=== PATIENT | male | born 1950 | race Caucasian/White ===

== ENCOUNTER 2019-01-13 01:28 | Inpatient (IN) | payer MEDICARE ==
[~2019-01-13] VITALS: Ht 185.4 cm; Wt 72.0 kg
[~2019-01-13 01:28] MED LIST: ALBUTEROL S2.5 MG/.5 IN; ALBUTEROL S2.5 MG/.5 NEB; ALPRAZOLAM0.5 M2 PO; ASPIRIN LOW81 M1 PO; AUGMENTIN875TAB PO; CEPHALEXIN500 MG OR; CHOLESTEROL PO; CIPROFLOXACN500 MG PO; CORTISPORIN OTI10 M1 AD; COUMADIN2.5 MG PO; DENIES CURRENT MEDS; DUONEB IN; FLEXERIL10 MG PO; FLONASE NASAL50 MCG; KEFLEX250 MG/5 M OR; KEFLEX500 M1 PO; LORTAB5 PO; MEDDOSEPAK PO; METFORMIN500 MG PO; NEURONTIN300 MG PO; NEXIUM40 M1 PO; NICOTINE T21 MG/PATC TD; NO HOME MEDS; OXYCO/APAP1 TA5 OR; PERCOCET 5/325M1 TAB OR; PERCOCET 5/325M1 TAB PO; PREDNISONE10 MG PO; PREDNISONE20 MG PO; SPIRIVA HANDIHALER IN; SPIRIVA RE2.5 MCG/AC IN; SYMBICORT1 AE1 IN; TAMSULOSIN HCL0.4 MG PO; TLSO BRACE; TYLENOL & COD12.5 ML OR; ULTRAM50 M1 PO; VENTOLIN HF1 IN; VIAGRA100 MG PO; WARFARIN5 MG PO; WARFARIN7.5 MG PO; ZITHROMAX250 MG PO; ZPAK PO
[2019-01-13 02:08] LABS: HEMATOCRIT 40.5 % (39.0-50.0); HEMOGLOBIN 13.6 g/dl (14.0-18.0); IMMATURE GRANULOCYTES 0.7 % (0.0-5.0); MEAN CELL VOLUME 89.4 fL CALC (80.0-100.0); MEAN CORPUSCULAR HGB CONC 33.6 g/L CALC (32.0-36.0); NEUT# 14.5 thou/uL (1.82-7.42); RED BLOOD COUNT 4.53 mill/uL (4.70-6.10); RED CELL DISTRI WIDTH 14.7 % (11.5-15.5)
[2019-01-13 02:24] LABS: ALBUMIN 3.9 g/dL (3.2-5.0); BILIRUBIN, TOTAL 1.7 mg/dL (0.0-1.4); BUN 21 mg/dL (8-23); BUN/CREATININE RATIO 21 (12-20 (CALC)); CARBON DIOXIDE 21 mmol/l (22-30); CHLORIDE 99 mmol/l (95-108); GFR > 60 ML/MIN (>=60 (CALC)); GFR FOR AFR.AMER. > 60 ML/MIN (>=60 (CALC)); SGOT/AST 25 u/l (19-48); TOTAL PROTEIN 7.6 g/dL (6.3-8.2)
[2019-01-13 02:26] LABS: ALKALINE PHOSPHATASE 131 u/l (38-126); ANION GAP 17 (6-22 (CALC)); POTASSIUM 3.6 mmol/l (3.5-5.1); SODIUM 133 mmol/l (137-146)
[2019-01-13 02:36] LABS: MYOGLOBIN 29 ng/mL (0 - 121)
[2019-01-13 04:31] VITALS: BP 106/90
[2019-01-13 08:17] VITALS: BP 104/62
[2019-01-13 10:59] LABS: URINE BILIRUBIN - DIPSTICK NEGATIVE (NEGATIVE); URINE BLOOD DIPSTICK MODERATE (NEGATIVE); URINE COLOR YELLOW; URINE GLUCOSE - DIPSTICK 500 mg/dL (NEGATIVE); URINE KETONE NEGATIVE (NEGATIVE); URINE LEUK ESTERASE NEGATIVE (NEGATIVE); URINE NITRITE - DIPSTICK NEGATIVE (Negative); URINE PH 5.5 (4.5-8.0); URINE PROTEIN - DIPSTICK TRACE mg/dL (NEG-TRACE); URINE SPECIFIC GRAVITY 1.025
[2019-01-13 17:05] VITALS: BP 106/59
[2019-01-13 19:00] VITALS: BP 119/62
[2019-01-14] VITALS (7 sets, daily range): BP systolic 102–120; BP diastolic 56–64
[2019-01-14 05:10] LABS: ALKALINE PHOSPHATASE 99 u/l (38-126); BILIRUBIN, TOTAL 0.4 mg/dL (0.0-1.4); BUN 19 mg/dL (8-23); BUN/CREATININE RATIO 29 (12-20 (CALC)); CARBON DIOXIDE 23 mmol/l (22-30); CHLORIDE 99 mmol/l (95-108); CREATININE 0.6 mg/dL (0.7-1.3); GFR > 60 ML/MIN (>=60 (CALC)); GFR FOR AFR.AMER. > 60 ML/MIN (>=60 (CALC)); SGOT/AST 15 u/l (19-48); SODIUM 132 mmol/l (137-146)
[2019-01-14 05:37] LABS: ANION GAP 15 (6-22 (CALC))
[2019-01-14 05:38] LABS: ALBUMIN 2.9 g/dL (3.2-5.0); POTASSIUM 4.6 mmol/l (3.5-5.1); TOTAL PROTEIN 5.6 g/dL (6.3-8.2)
[2019-01-14 06:25] LABS: IMMATURE GRANULOCYTES 0.8 % (0.0-5.0); MEAN CORPUSCULAR HGB 29.8 pG CALC (26.0-32.0); MEAN CORPUSCULAR HGB CONC 33.1 g/L CALC (32.0-36.0); NEUT# 11.09 thou/uL (1.82-7.42); RED BLOOD COUNT 3.39 mill/uL (4.70-6.10); RED CELL DISTRI WIDTH 13.9 % (11.5-15.5)
[2019-01-14 06:26] LABS: HEMATOCRIT 30.5 % (39.0-50.0); HEMOGLOBIN 10.1 g/dl (14.0-18.0)
[2019-01-15] VITALS (7 sets, daily range): BP systolic 99–134; BP diastolic 59–79
[2019-01-15 05:57] LABS: HEMATOCRIT 31.4 % (39.0-50.0); HEMOGLOBIN 10.3 g/dl (14.0-18.0); IMMATURE GRANULOCYTES 0.4 % (0.0-5.0); MEAN CELL VOLUME 90.5 fL CALC (80.0-100.0); MEAN CORPUSCULAR HGB 29.7 pG CALC (26.0-32.0); MEAN CORPUSCULAR HGB CONC 32.8 g/L CALC (32.0-36.0); NEUT# 6.65 thou/uL (1.82-7.42); RED BLOOD COUNT 3.47 mill/uL (4.70-6.10); RED CELL DISTRI WIDTH 14.3 % (11.5-15.5)
[2019-01-15 06:22] LABS: ALBUMIN 2.6 g/dL (3.2-5.0); ALKALINE PHOSPHATASE 87 u/l (38-126); ANION GAP 12 (6-22 (CALC)); BILIRUBIN, TOTAL 0.4 mg/dL (0.0-1.4); BUN 22 mg/dL (8-23); BUN/CREATININE RATIO 28 (12-20 (CALC)); CARBON DIOXIDE 26 mmol/l (22-30); CHLORIDE 102 mmol/l (95-108); CREATININE 0.8 mg/dL (0.7-1.3); GFR > 60 ML/MIN (>=60 (CALC)); GFR FOR AFR.AMER. > 60 ML/MIN (>=60 (CALC)); MAGNESIUM 1.8 mg/dL (1.6-2.3); POTASSIUM 4.4 mmol/l (3.5-5.1); SODIUM 136 mmol/l (137-146); TOTAL PROTEIN 5.2 g/dL (6.3-8.2)
[2019-01-15 06:26] LABS: SGOT/AST 28 u/l (19-48)
[2019-01-16 04:00] VITALS: BP 107/58
[2019-01-16 05:07] LABS: HEMATOCRIT 32.1 % (39.0-50.0); HEMOGLOBIN 10.3 g/dl (14.0-18.0); MEAN CELL VOLUME 93.9 fL CALC (80.0-100.0); MEAN CORPUSCULAR HGB 30.1 pG CALC (26.0-32.0); MEAN CORPUSCULAR HGB CONC 32.1 g/L CALC (32.0-36.0); NEUT# 5.31 thou/uL (1.82-7.42); RED BLOOD COUNT 3.42 mill/uL (4.70-6.10); RED CELL DISTRI WIDTH 14.4 % (11.5-15.5)
[2019-01-16 05:18] LABS: ALBUMIN 2.8 g/dL (3.2-5.0); ALKALINE PHOSPHATASE 104 u/l (38-126); ANION GAP 13 (6-22 (CALC)); BILIRUBIN, TOTAL 0.7 mg/dL (0.0-1.4); BUN 18 mg/dL (8-23); BUN/CREATININE RATIO 26 (12-20 (CALC)); CARBON DIOXIDE 28 mmol/l (22-30); CHLORIDE 98 mmol/l (95-108); CREATININE 0.7 mg/dL (0.7-1.3); GFR > 60 ML/MIN (>=60 (CALC)); GFR FOR AFR.AMER. > 60 ML/MIN (>=60 (CALC)); MAGNESIUM 1.9 mg/dL (1.6-2.3); POTASSIUM 3.7 mmol/l (3.5-5.1); SGOT/AST 29 u/l (19-48); SODIUM 135 mmol/l (137-146); TOTAL PROTEIN 5.5 g/dL (6.3-8.2)
[2019-01-16 08:15] VITALS: BP 127/62
[2019-01-16 11:15] VITALS: BP 101/56
[2019-01-16 15:05] VITALS: BP 106/55
[2019-01-16 19:00] VITALS: BP 119/61
[2019-01-17] VITALS (7 sets, daily range): BP systolic 109–133; BP diastolic 58–67
[2019-01-17 05:09] LABS: HEMATOCRIT 31.2 % (39.0-50.0); HEMOGLOBIN 10.1 g/dl (14.0-18.0); IMMATURE GRANULOCYTES 1.1 % (0.0-5.0); MEAN CELL VOLUME 91.8 fL CALC (80.0-100.0); MEAN CORPUSCULAR HGB 29.7 pG CALC (26.0-32.0); MEAN CORPUSCULAR HGB CONC 32.4 g/L CALC (32.0-36.0); NEUT# 4.65 thou/uL (1.82-7.42); RED BLOOD COUNT 3.4 mill/uL (4.70-6.10); RED CELL DISTRI WIDTH 14.4 % (11.5-15.5)
[2019-01-17 05:51] LABS: ALBUMIN 2.7 g/dL (3.2-5.0); ALKALINE PHOSPHATASE 96 u/l (38-126); ANION GAP 13 (6-22 (CALC)); BILIRUBIN, TOTAL 0.5 mg/dL (0.0-1.4); BUN 17 mg/dL (8-23); BUN/CREATININE RATIO 25 (12-20 (CALC)); CARBON DIOXIDE 28 mmol/l (22-30); CHLORIDE 98 mmol/l (95-108); CREATININE 0.7 mg/dL (0.7-1.3); GFR > 60 ML/MIN (>=60 (CALC)); GFR FOR AFR.AMER. > 60 ML/MIN (>=60 (CALC)); POTASSIUM 4.4 mmol/l (3.5-5.1); SGOT/AST 24 u/l (19-48); SODIUM 135 mmol/l (137-146); TOTAL PROTEIN 5.3 g/dL (6.3-8.2)
[2019-01-17] MEDS ORDERED: DIFLUCAN100 M1 PO (13:46)
[2019-01-17] MEDS ORDERED: PREDNISONE10 MG PO (13:47)
[2019-01-17] MEDS ORDERED: HYDROXYZINE HCL50 MG PO (13:49)
[2019-01-17] MEDS ORDERED: ARIPIPRAZOLE5 MG PO (13:49)
[2019-01-17] MEDS ORDERED: BUSPIRONE5 MG PO (13:51)
[2019-01-18 04:28] VITALS: BP 107/66
[2019-01-18 05:13] LABS: HEMATOCRIT 31.3 % (39.0-50.0); HEMOGLOBIN 10.2 g/dl (14.0-18.0); IMMATURE GRANULOCYTES 2.5 % (0.0-5.0); MEAN CELL VOLUME 91.3 fL CALC (80.0-100.0); MEAN CORPUSCULAR HGB 29.7 pG CALC (26.0-32.0); MEAN CORPUSCULAR HGB CONC 32.6 g/L CALC (32.0-36.0); NEUT# 3.07 thou/uL (1.82-7.42); RED BLOOD COUNT 3.43 mill/uL (4.70-6.10); RED CELL DISTRI WIDTH 14.2 % (11.5-15.5)
[2019-01-18 05:23] LABS: ALBUMIN 2.7 g/dL (3.2-5.0); ALKALINE PHOSPHATASE 99 u/l (38-126); ANION GAP 12 (6-22 (CALC)); BILIRUBIN, TOTAL 0.5 mg/dL (0.0-1.4); BUN 12 mg/dL (8-23); BUN/CREATININE RATIO 16 (12-20 (CALC)); CARBON DIOXIDE 29 mmol/l (22-30); CHLORIDE 100 mmol/l (95-108); CREATININE 0.7 mg/dL (0.7-1.3); GFR > 60 ML/MIN (>=60 (CALC)); GFR FOR AFR.AMER. > 60 ML/MIN (>=60 (CALC)); MAGNESIUM 2.2 mg/dL (1.6-2.3); POTASSIUM 4.4 mmol/l (3.5-5.1); SGOT/AST 22 u/l (19-48); SODIUM 136 mmol/l (137-146); TOTAL PROTEIN 5.5 g/dL (6.3-8.2)
[2019-01-18 07:52] VITALS: BP 118/65
[2019-01-18 11:16] VITALS: BP 121/75
[2019-01-18 16:04] VITALS: BP 111/66
[2019-01-18 16:43] VITALS: BP 111/66
[2019-01-18 19:28] VITALS: BP 129/69
[2019-01-19] VITALS (7 sets, daily range): BP systolic 114–145; BP diastolic 63–85
[2019-01-19 04:56] LABS: HEMATOCRIT 34.1 % (39.0-50.0); HEMOGLOBIN 10.8 g/dl (14.0-18.0); IMMATURE GRANULOCYTES 5.6 % (0.0-5.0); MEAN CELL VOLUME 91.7 fL CALC (80.0-100.0); MEAN CORPUSCULAR HGB CONC 31.7 g/L CALC (32.0-36.0); PLATELET COUNT 218 thou/uL (130-400); RED BLOOD COUNT 3.72 mill/uL (4.70-6.10); RED CELL DISTRI WIDTH 14.1 % (11.5-15.5)
[2019-01-19 05:12] LABS: ANION GAP 14 (6-22 (CALC)); BUN 12 mg/dL (8-23); BUN/CREATININE RATIO 19 (12-20 (CALC)); CARBON DIOXIDE 26 mmol/l (22-30); CHLORIDE 103 mmol/l (95-108); CREATININE 0.7 mg/dL (0.7-1.3); GFR > 60 ML/MIN (>=60 (CALC)); GFR FOR AFR.AMER. > 60 ML/MIN (>=60 (CALC)); MAGNESIUM 2.4 mg/dL (1.6-2.3); POTASSIUM 4.9 mmol/l (3.5-5.1); SODIUM 139 mmol/l (137-146)
[2019-01-19 06:16] LABS: BAND 2 % (0-8); MANUAL DIFFERENTIAL YES
[2019-01-19 06:17] LABS: HYPOCHROMIA FEW; MICROCYTOSIS FEW; PLATELET ESTIMATE NORMAL
[2019-01-20] VITALS (12 sets, daily range): BP systolic 118–141; BP diastolic 61–80
[2019-01-21 03:20] VITALS: BP 133/76
[2019-01-21 08:43] VITALS: BP 140/74
[2019-01-21 11:18] VITALS: BP 144/64
[2019-01-21 15:05] VITALS: BP 137/68
[2019-01-21 19:14] VITALS: BP 125/56
[2019-01-21 23:06] VITALS: BP 142/67
[2019-01-22 03:51] VITALS: BP 124/63
[2019-01-22 04:57] LABS: HEMATOCRIT 33.4 % (39.0-50.0); HEMOGLOBIN 11.1 g/dl (14.0-18.0); MEAN CELL VOLUME 89.8 fL CALC (80.0-100.0); MEAN CORPUSCULAR HGB 29.8 pG CALC (26.0-32.0); MEAN CORPUSCULAR HGB CONC 33.2 g/L CALC (32.0-36.0); RED BLOOD COUNT 3.72 mill/uL (4.70-6.10); RED CELL DISTRI WIDTH 13.9 % (11.5-15.5)
[2019-01-22 05:18] LABS: ALBUMIN 2.8 g/dL (3.2-5.0); ALKALINE PHOSPHATASE 96 u/l (38-126); ANION GAP 12 (6-22 (CALC)); BILIRUBIN, TOTAL 0.3 mg/dL (0.0-1.4); BUN 20 mg/dL (8-23); BUN/CREATININE RATIO 27 (12-20 (CALC)); CARBON DIOXIDE 29 mmol/l (22-30); CHLORIDE 103 mmol/l (95-108); CREATININE 0.7 mg/dL (0.7-1.3); GFR > 60 ML/MIN (>=60 (CALC)); GFR FOR AFR.AMER. > 60 ML/MIN (>=60 (CALC)); MAGNESIUM 2.1 mg/dL (1.6-2.3); POTASSIUM 4.9 mmol/l (3.5-5.1); SGOT/AST 21 u/l (19-48); SODIUM 139 mmol/l (137-146); TOTAL PROTEIN 5.6 g/dL (6.3-8.2)
[2019-01-22 05:32] LABS: IMMATURE GRANULOCYTES 8.2 % (0.0-5.0); PLATELET COUNT 269 thou/uL (130-400)
[2019-01-22 05:33] LABS: MANUAL DIFFERENTIAL YES
[2019-01-22 05:39] LABS: BAND 2 % (0-8); PLATELET ESTIMATE NORMAL
[2019-01-22 08:12] VITALS: BP 153/85
[2019-01-22 11:15] VITALS: BP 143/72
[2019-01-22 16:00] VITALS: BP 109/59
[2019-01-22 19:38] VITALS: BP 121/61
[2019-01-23 00:02] VITALS: BP 123/66
[2019-01-23 04:22] VITALS: BP 136/62
[2019-01-23 07:57] VITALS: BP 136/62
[2019-01-23 11:00] VITALS: BP 123/55
[2019-01-23 15:25] VITALS: BP 133/62
[2019-01-23 19:00] VITALS: BP 131/71
[2019-01-24 00:22] VITALS: BP 121/64
[2019-01-24 05:18] VITALS: BP 142/68
[2019-01-24 05:34] LABS: HEMATOCRIT 32.8 % (39.0-50.0); HEMOGLOBIN 10.7 g/dl (14.0-18.0); MEAN CELL VOLUME 90.1 fL CALC (80.0-100.0); MEAN CORPUSCULAR HGB 29.4 pG CALC (26.0-32.0); MEAN CORPUSCULAR HGB CONC 32.6 g/L CALC (32.0-36.0); PLATELET COUNT 290 thou/uL (130-400); RED BLOOD COUNT 3.64 mill/uL (4.70-6.10)
[2019-01-24 05:56] LABS: ALBUMIN 2.9 g/dL (3.2-5.0); ALKALINE PHOSPHATASE 102 u/l (38-126); ANION GAP 11 (6-22 (CALC)); BILIRUBIN, TOTAL 0.2 mg/dL (0.0-1.4); BUN 20 mg/dL (8-23); BUN/CREATININE RATIO 33 (12-20 (CALC)); CARBON DIOXIDE 32 mmol/l (22-30); CHLORIDE 100 mmol/l (95-108); CREATININE 0.6 mg/dL (0.7-1.3); GFR > 60 ML/MIN (>=60 (CALC)); GFR FOR AFR.AMER. > 60 ML/MIN (>=60 (CALC)); MAGNESIUM 2.1 mg/dL (1.6-2.3); POTASSIUM 4.7 mmol/l (3.5-5.1); SGOT/AST 30 u/l (19-48); SODIUM 138 mmol/l (137-146); TOTAL PROTEIN 5.5 g/dL (6.3-8.2)
[2019-01-24 06:13] LABS: IMMATURE GRANULOCYTES 10.5 % (0.0-5.0); MANUAL DIFFERENTIAL YES
[2019-01-24 06:14] LABS: BAND 3 % (0-8); HYPOCHROMIA FEW; OVALOCYTES FEW; PLATELET ESTIMATE NORMAL
[2019-01-24 08:56] VITALS: BP 138/61
[2019-01-24 11:56] VITALS: BP 139/67
[2019-01-24 15:17] VITALS: BP 117/54; BP 117/74
[2019-01-25 00:05] VITALS: BP 136/69
[2019-01-25 04:15] VITALS: BP 131/66
[2019-01-25 06:55] VITALS: BP 136/70
[2019-01-25 13:00] VITALS: BP 138/64
[2019-01-25 16:23] VITALS: BP 135/60
[2019-01-25 19:00] VITALS: BP 153/76
[2019-01-26] VITALS: BP 126/66
[2019-01-26 04:40] VITALS: BP 134/69
[2019-01-26 08:20] VITALS: BP 135/63
[2019-01-26 15:25] VITALS: BP 117/63
[2019-01-26 19:00] VITALS: BP 148/70
[2019-01-26 22:21] VITALS: BP 138/80
[2019-01-27 04:18] VITALS: BP 131/67
[2019-01-27 07:46] VITALS: BP 140/68
[2019-01-27 17:16] VITALS: BP 127/62
[2019-01-27 19:20] VITALS: BP 132/70
[2019-01-28 04:20] VITALS: BP 113/67
[2019-01-28 08:06] VITALS: BP 129/64
[2019-01-28 15:03] VITALS: BP 116/63
[2019-01-28 19:30] VITALS: BP 119/65
[2019-01-29 04:00] VITALS: BP 105/63
[2019-01-29 09:40] VITALS: BP 104/63
[2019-01-29] MEDS ORDERED: PANTOPRAZOLE SO40 M1 PO (13:56)
[2019-01-29] MEDS ORDERED: POM PO (13:56)
[2019-01-29] MEDS ORDERED: IPRATROPIU0.5 MG/3 M IN (13:57)
[2019-01-29] MEDS ORDERED: METOCLOPRAMIDE10 MG PO (13:57)
[2019-01-29 17:30] VITALS: BP 111/65
== END 2019-01-29 17:20 | DRG 178 ==
LOC: ED 01:28 → ED-I 03:48 → ED 04:02 → MS2 04:03
PROVIDERS: Emergency Medicine; Internal Medicine Nephrology; Nurse Practitioner Family; ADMIT Internal Medicine; ATTEND Internal Medicine
PROC: 0DH63UZ Insertion of Feeding Device into Stomach, Percutaneous Approach (ICD-10-PCS; principal; 2019-01-20)
DX: J69.0 Pneumonitis due to inhalation of food and vomit (principal); J44.1 Chronic obstructive pulmonary disease with (acute) exacerbation; E22.2 Syndrome of inappropriate secretion of antidiuretic hormone; E46 Unspecified protein-calorie malnutrition; I10 Essential (primary) hypertension; N40.0 Benign prostatic hyperplasia without lower urinary tract symptoms; E88.09 Other disorders of plasma-protein metabolism, not elsewhere classified; K29.70 Gastritis, unspecified, without bleeding; K44.9 Diaphragmatic hernia without obstruction or gangrene; R13.10 Dysphagia, unspecified; F17.210 Nicotine dependence, cigarettes, uncomplicated; B19.20 Unspecified viral hepatitis C without hepatic coma; E78.5 Hyperlipidemia, unspecified; F31.9 Bipolar disorder, unspecified; K59.00 Constipation, unspecified; I25.10 Atherosclerotic heart disease of native coronary artery without angina pectoris; Z85.810 Personal history of malignant neoplasm of tongue; Z95.1 Presence of aortocoronary bypass graft; Z90.49 Acquired absence of other specified parts of digestive tract; Z68.20 Body mass index [BMI] 20.0-20.9, adult; Z86.711 Personal history of pulmonary embolism; Z87.01 Personal history of pneumonia (recurrent); Z92.3 Personal history of irradiation
CPT/HCPCS: J0692; J3370

== ENCOUNTER 2019-08-03 19:41 | Inpatient (IN) | payer MEDICARE, MEDICAID ==
[~2019-08-03] VITALS: Ht 185.4 cm; Wt 69.0 kg
[~2019-08-03 19:41] MED LIST changes: +ADVAIR DISK1 INH; +ALBUTEROL SUL0.083 % IN; +ARIPIPRAZOLE5 MG PO; +ASPIRIN81 MG PO; +BUSPIRONE5 MG PO; +DIFLUCAN100 M1 PO; +HYDROXYZINE HCL50 MG PO; +IPRATROPIU0.5 MG/3 M IN; +JEVITY 1.5 CAL PO; +MELATONIN3 MG PO; +METOCLOPRAMIDE10 MG PO; +PANTOPRAZOLE SO40 M1 PO; +POM PO
--- NOTE | 2019-08-03 19:45 | NUR ---
Pt to room # 9 for bedside triage
--- NOTE | 2019-08-03 20:18 | NUR ---
PT STATES HIS SOB AND FEVER STARTED 1 WEEK AGO BUT HE DID NOT GO SEEK TREATMENT BY EITHER PMD OR HOSPITAL. DECIDED TO COME IN TONIGHT BECAUSE PT STATES HIS LUNG HURTS. PT IS VERY UNKEPT, DIRTY LONG FINGERNAILS. PEG TUBE DIRTY WITH DIRTY GAUZE DRESSING AROUND IT. PT STATES HE CAN EAT AND DOESN'T USE THE TUBE.
[2019-08-03 20:26] LABS: HEMATOCRIT 41.2 % (39.0-50.0); HEMOGLOBIN 14.1 g/dl (14.0-18.0); IMMATURE GRANULOCYTES 0.5 % (0.0-5.0); MEAN CORPUSCULAR HGB 30.1 pG CALC (26.0-32.0); MEAN CORPUSCULAR HGB CONC 34.2 g/L CALC (32.0-36.0); NEUT# 7.19 thou/uL (1.82-7.42); RED BLOOD COUNT 4.68 mill/uL (4.70-6.10); RED CELL DISTRI WIDTH 12.6 % (11.5-15.5)
[2019-08-03 20:41] LABS: INTERNATIONAL NORMALIZED RATIO 1.1 RATIO (0.7-1.3); PROTHROMBIN TIME 11.6 SECONDS (9.0-12.5)
[2019-08-03 20:42] LABS: ALBUMIN 4.4 g/dL (3.2-5.0); ALKALINE PHOSPHATASE 112 u/l (38-126); ANION GAP 18 (6-22 (CALC)); BUN 19 mg/dL (8-23); BUN/CREATININE RATIO 26 (12-20 (CALC)); CARBON DIOXIDE 28 mmol/l (22-30); CHLORIDE 94 mmol/l (95-108); CREATININE 0.8 mg/dL (0.7-1.3); GFR > 60 ML/MIN (>=60 (CALC)); GFR FOR AFR.AMER. > 60 ML/MIN (>=60 (CALC)); SGOT/AST 61 u/l (19-48); SODIUM 136 mmol/l (137-146); TOTAL PROTEIN 8.6 g/dL (6.3-8.2)
[2019-08-03 20:53] LABS: MYOGLOBIN 78 ng/mL (0 - 121)
--- NOTE | 2019-08-03 20:53 | NUR ---
DAUGHTER AT BEDSIDE AND STATES PT IS NOT SUPPOSE TO BE EATING DUE TO THE"FLAP" NOT COVERING HIS LUNG WHEN HE EATS. PT STATES HE DOESN'T CARE HE HAS BEEN EATING FINE FOR 5 MONTHS AND HE ENJOYS IT.
--- NOTE | 2019-08-03 21:15 | NUR ---
DR GARCIA IN TO GO OVER RESULTS
--- NOTE | 2019-08-03 22:21 | NUR ---
REPORT TO WILLY FALK.
--- NOTE | 2019-08-03 22:29 | NUR ---
Admission Note Report Given to: WILLY FALK Transported by: X Wheelchair Stretcher Transported with: X Nurse Transporter X Patent IV X O2 X Human Service Worker
--- NOTE | 2019-08-03 22:42 | NUR ---
PT ARRIVED TO THE FLOOR. VS ASSESSED. AIDE IN W/PT ORIENTING TO ROOM. PT APPEARS TO BE IN STABLE CONDITION AT THIS TIME.
[2019-08-03 22:45] VITALS: BP 110/70
--- NOTE | 2019-08-03 23:40 | NUR ---
PT ASSESSEMENT COMPLETED AT THIS TIME. AND PT ADMISSION COMPLETED. LUNG SOUNDS ARE WHEEZING THROUGHOUT. PEG TUBE AND IV SITE REDRESSED. IVF AND IV ANTIBIOTIC THERAPY ADMINISTERED AT THIS TIME. PT IS RELAXED IN BED WATCHING TV. HE HAS BEEN SHOWERED, REPORTS FEELING MUCH BETTER AFTER GETTING SHOWER. PT AMBULATES WITH STEADY GAIT AND IS LOCX4.
[2019-08-04] VITALS (11 sets, daily range): BP systolic 81–117; BP diastolic 53–81
--- NOTE | 2019-08-04 00:18 | NUR ---
AIDE IN W/PT AT THIS TIME. PT IS SWEATING, ROOM TURNED COOLER,BLANKET REMOVED. NO OTHER S/O DISTRESS NOTED. V/S ARE BEING OBTAINED AT THIS TIME.
--- NOTE | 2019-08-04 01:30 | NUR ---
PT APPEARS TO BE SLEEPING AT THIS TIME. CALL LIGHT AT SIDE, LIGHTS AND TV ARE ON.
--- NOTE | 2019-08-04 05:00 | NUR ---
AIDE IN W/PT AND REPORTING PT TEMP 94.9, PT SYMPTOMATIC W/CHILLS/SHIVERING REPORTS FEELING COLD. ROOM WARMED, BEAR-HUGGER PLACED AND ADDITIONAL BLANKETS PLACED. WILL FOLLOW-UP WITH TEMP RECHECK AND SYMPTOM IMPROVEMENT.
--- NOTE | 2019-08-04 05:30 | NUR ---
PT REPORTS FEELING BETTER, NOT SYMPTOMATIC AT THIS TIME. ORAL TEMP STILL LOW AT 95.0, WILL CONTINUE TO MONITOR FOR TEMP REGULATION. PT DENIES ANY OTHER NEEDS AT THIS TIME.
--- NOTE | 2019-08-04 08:00 | NUR ---
PT IS SEEN WITH EYES CLOSED IN BED, BUT ROUSES EASILY AND IS INTERACTIVE. LUNGS ARE DIMINISHED BUT CLEAR THROUGHOUT, 2 LPM NC. NO COMPLAINTS OF SHORTNESS OF BREATH OR OTHERWISE.
[2019-08-04 08:38] LABS: HEMATOCRIT 36.4 % (39.0-50.0); HEMOGLOBIN 12.4 g/dl (14.0-18.0); IMMATURE GRANULOCYTES 0.4 % (0.0-5.0); MEAN CELL VOLUME 88.6 fL CALC (80.0-100.0); MEAN CORPUSCULAR HGB 30.2 pG CALC (26.0-32.0); MEAN CORPUSCULAR HGB CONC 34.1 g/L CALC (32.0-36.0); NEUT# 5.99 thou/uL (1.82-7.42); RED BLOOD COUNT 4.11 mill/uL (4.70-6.10); RED CELL DISTRI WIDTH 12.6 % (11.5-15.5)
[2019-08-04 09:00] LABS: ANION GAP 13 (6-22 (CALC)); BUN 27 mg/dL (8-23); BUN/CREATININE RATIO 37 (12-20 (CALC)); CARBON DIOXIDE 27 mmol/l (22-30); CHLORIDE 102 mmol/l (95-108); CREATININE 0.7 mg/dL (0.7-1.3); GFR > 60 ML/MIN (>=60 (CALC)); GFR FOR AFR.AMER. > 60 ML/MIN (>=60 (CALC)); MAGNESIUM 2.4 mg/dL (1.6-2.3); POTASSIUM 4.5 mmol/l (3.5-5.1); SODIUM 137 mmol/l (137-146)
--- NOTE | 2019-08-04 12:00 | NUR ---
PT REMAINS AT REST IN THE BED, NO DISTRESS. BP WAS LOW THIS MORNING, PROVIDED BOLUS THAT BROUGHT PRESSURE UP FROM 80s TO 105-119 SYSTOLIC. PT ASYMPTOMATIC.
--- NOTE | 2019-08-04 14:16 | NUR ---
Pt is a 68 y.o. male referred for a Clinical Bedside Swallow Evaluation d/t concerns with aspiration. 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 Pt has a PEG tube, but reports he has "been eating for 5 months now" [orally]. Most recent CXR reveals right middle upper lobe PNA, bibasilar atelactasis, acute Bronchitis, and COPD exacerbation(s); no report of Aspiration PNA. Pt able to safely consume regular thin liquids via straw with inconsistent belching with chin tuck and no s/s of aspiration/penetration with mech soft (chopped) solids (in conjunction w/chin tuck maneuver). INK GRINDER recommending Barium Swallow Study to difinitively r/o silent aspiration/penetration, especially w/pt's extensive respiratory comorbidities. No diet recommendation(s) at this time until MBSS can be completed. Results discussed w/FINANCIAL SERVICES ASSOCIATE.
--- NOTE | 2019-08-04 18:41 | NUR ---
PT HAS BEEN SHOWERED THIS AFTERNOON. PT CONTINUES WITH LOUD DRY COUGH. BP RETURNED TO NORMAL AFTER BOLUS THIS MORNING. FAMILY HAS VISITED AT BEDSIDE.
--- NOTE | 2019-08-04 20:00 | NUR ---
PT IS AWAKE SITTING IN BED WATCHING T.V. PT IS ALERT AND ORIENTED X3. RESP EVEN AND UNLABORED. O2 N/C ON AT 2L. TELE INTACT. LUNGS CLEAR BILAT. ABD SOFT AND NONDISTENDED WITH BOWEL SOUNDS PRESENT. PEG TUBE IS PATENT AND CLAMPED AT THIS TIME. NO DRAINAGE OR REDNESS AT PEG TUBE INSERTION SITE. NEW DRESSING APPILED AROUND INSERTION SITE. BOWEL SOUNDS IN ALL 4 QUADS. NO LOWER EXT EDEMA NOTED. PEDAL PULSES PALPATED BILAT. IV SITE IS PATENT NO REDNESS OR SWELLING AT SITE. PT IS NPO. PT UNDERSTANDS HE IS NPO. PT DENIES ANY DISCOMFORT. FREQUENT ROUNDS MADE. CALL ADKINS WITHIN REACH.
--- NOTE | 2019-08-04 22:30 | NUR ---
WATCHING T.V. OFFERS NO COMPLAINTS. RESP EVEN AND UNLABORED. FREQUENT ROUNDS MADE. CALL ADKINS WITHIN REACH.
--- NOTE | 2019-08-05 00:10 | NUR ---
RESTING IN BED WITH EYES CLOSED. RESP EVEN AND UNLABORED. NO DISTRESS NOTED. IV SITE PATENT. NSS AT 100CC/HR. PT VOIDED 350CC OF CLEAR PIPER URINE. TELE INTACT. FREQUENT ROUNDS MADE. CALL ADKINS WITHIN REACH.
--- NOTE | 2019-08-05 02:30 | NUR ---
RESTING IN BED WITH EYES CLOSED. TELE INTACT. NO DISTRESS NOTED. PT REMAINS NPO. IV SITE PATENT. CALL ADKINS WITHIN REACH.
[2019-08-05 04:15] VITALS: BP 103/61
--- NOTE | 2019-08-05 04:28 | NUR ---
RESTING IN BED WITH EYES CLOSED. ASSESSMENT UNCHANGED. NO DISTRESS NOTED. IV SITE PATENT. PT REMAINS NPO. CALL ADKINS WITHIN REACH.
[2019-08-05 08:00] VITALS: BP 95/50
--- NOTE | 2019-08-05 08:00 | NUR ---
PT ALERT AND ORIENTED X 3. LUNGS CLEAR, 2 LPM. SKIN INTACT. PT TO BARIUM SWALLOW STUDY THIS MORNING.
[2019-08-05 11:28] VITALS: BP 111/57
--- NOTE | 2019-08-05 12:00 | NUR ---
PT UPDATED ON FINDINGS OF ASPIRATION DURING BARIUM SWALLOW STUDY TODAY, NOT AT ALL HAPPY THAT HE WILL NEED TUBE FEEDINGS. PT DID HAVE SHOWER THIS MORNING. NO DISTRESS NOTED, NO COMPLAINTS SHORTNESS OF BREATH.
[2019-08-05 15:25] VITALS: BP 98/50
--- NOTE | 2019-08-05 16:00 | NUR ---
UPON BRINGING PEG TUBE FEEDING INTO ROOM, IT WAS SEEN THAT PT'S PEG TUBE HAS BLACK POSSIBLE MOLD IN THE TUBE TO POINT OF CLAMP. DEAN OF MEN AWARE, CONSULTS DR QUISPE FOR POSSIBLE REPLACEMENT PRIOR TO ADMINISTERING PULMOCARE. PT AWARE OF MAICO ON, AGREEABLE.
--- NOTE | 2019-08-05 18:31 | NUR ---
NO CHANGE NOTED IN STATUS PT REMAINS AT REST IN THE BED WITHOUT COMPLAINT OR EVIDENCE OF DISTRESS.
[2019-08-05 19:00] VITALS: BP 102/48
--- NOTE | 2019-08-05 20:10 | NUR ---
PT AWAKE SITTING IN BED WATCHING T.V. VSS. RESP EVEN AND UNLABORED. LUNGS CLEAR BILAT. ABD SOFT AND NONDISTENDED WITH BOWEL SOUNDS PRESENT. PEG TUBE IS CLAMPED. NO REDNESS OR DRAINAGE AT INSERTION SITE. DRESSING CLEAN AND DRY. NO LOWER EXT EDEMA NOTED. PEDAL PULSES PALPATED BILAT. IV SITE PATENT IN LEFT FOREARM NO REDNESS OR TENDERNESS AT SITE. TELE INTACT. PT REMAINS NPO. FREQUENT ROUNDS MADE. CALL ADKINS WITHIN REACH.
--- NOTE | 2019-08-05 22:13 | NUR ---
IV SITE IN LEFT FOREARM LEAKING. IV SITE D/C WITH CATHETER INTACT. NEW IV SITE OBTAINED ON FIRST ATTEMPT IN LEFT FOREARM. NEW #22G INSERTED WITH GOOD BLOOD RETURN AND FLUSHED WITHOUT ANY DIFFICULTY. NSS AT 100CC/HR. PT REQUESTING ATIVAN FOR ANXIETY AND SLEEP. MEDICATED WITH ATIVAN 0.5MG IV FOR ANXIETY AND SLEEP. O2 N/C ON AT 2L. RESP EVEN AND UNLABORED. PT REMAINS NPO. OFFERS NO COMPLAINTS. WILL CONTINUE TO CLOSELY MONITOR. FREQUENT ROUNDS MADE. CALL ADKINS WITHIN REACH.
[2019-08-05 23:12] VITALS: BP 104/55
--- NOTE | 2019-08-06 00:30 | NUR ---
PT RESTING IN BED WITH EYES CLOSED. RESP EVEN AND UNLABORED. NO DISTRESS NOTED. O2 N/C ON AT 2L. IV SITE PATENT IN LEFT FOREARM NSS AT 100CC/HR. TELE INTACT. FREQUENT ROUNDS MADE. CALL ADKINS WITHIN REACH.
--- NOTE | 2019-08-06 02:40 | NUR ---
PT AWAKE RESTING IN BED. PT DENIES ANY DISCOMFORT. RESP EVEN AND UNLABORED. IV SITE PATENT NSS AT 100CC/HR. PT STATES HE WAS SLEEPING AND WOKE UP . FREQUENT ROUNDS MADE. CALL ADKINS WITHIN REACH.
[2019-08-06 03:52] VITALS: BP 104/57
--- NOTE | 2019-08-06 04:32 | NUR ---
PT RESTING IN BED WITH EYES CLOSED. ASSESSMENT UNCHANGED. RESP EVEN AND UNLABORED. NO DISTRESS NOTED. IV SITE PATENT. PT REMAINS NPO. FREQUENT ROUNDS MADE. CALL ADKINS WITHIN REACH.
[2019-08-06 05:17] LABS: HEMATOCRIT 31.5 % (39.0-50.0); IMMATURE GRANULOCYTES 1.1 % (0.0-5.0); MEAN CELL VOLUME 91.6 fL CALC (80.0-100.0); MEAN CORPUSCULAR HGB 30.2 pG CALC (26.0-32.0); NEUT# 6.85 thou/uL (1.82-7.42); RED BLOOD COUNT 3.44 mill/uL (4.70-6.10)
[2019-08-06 05:22] LABS: HEMOGLOBIN 10.4 g/dl (14.0-18.0)
[2019-08-06 07:51] VITALS: BP 112/59
--- NOTE | 2019-08-06 08:00 | NUR ---
ASSESSMENT DONE. PT IS A&O X3. IVF INFUSING WELL. REPS EVEN AND UNLABORED. PT HAS A PEG TUBE AND NPO. PT DENIES ANY NEEDS AT THIS TIME. SAFETY PRECAUTIONS REINFORCED AND CALL LIGHT IN REACH.
--- NOTE | 2019-08-06 08:55 | NUR ---
PT EATING A HAMBURGER. EXPLAIN TO PT HE IS NPO AND HAS A PEG TUBE. PT STATED YELLING I KNOW BUT I'M HUNGRY. NOTIFIED DESTINY US Re: PT EATING.
--- NOTE | 2019-08-06 11:25 | NUR ---
PT RESTING IN BED USING HIS CELL PHONE WITH NO S/S OF DISTRESS NOTED. PT DENIES NEEDS. CALL LIGHT IN REACH.
[2019-08-06 11:53] VITALS: BP 111/62
--- NOTE | 2019-08-06 12:22 | NUR ---
ATTEMPTED PHYSICAL THERAPY HOWEVER PT FIRMLY REFUSED STATING THAT HE WAS HAVING A GREAT DEAL OF DIFFICULTY BREATHING WHEN MOVING. SPO2 WAS 96% ON 2.5L OF O2 WHEN CHECKED. ENCOURAGED PT TO PARTICIPATE WITH P.T. AND KEEP AN UPRIGHT POSITION TO PREVENT PNEUMONIA. HE WAS FIRM THAT HE DID NOT WANT TO PARTICIPATE WITH P.T. TODAY.
--- NOTE | 2019-08-06 12:25 | NUR ---
called dr.fiorucci frances at [phone] and left voicemail regarding this pt. let him know what room and name of pt and what it was for.
--- NOTE | 2019-08-06 12:30 | NUR ---
DR. QUISPE AT BEDSIDE. DR. QUISPE REPLACE PEG TUBE. STATED CAN START FEEDS. PT TOLERATED WELL. CALL LIGHT IN REACH.
--- NOTE | 2019-08-06 13:15 | NUR ---
CHECK FOR PEG TUBE PLACEMENT. O ML OF RESIDUAL. HOB ELEVATED FEED PT WITH PULMOCARE CAN AND FLUSH AFTER WITH 200 ML OF WATER. PT TOLERATED WELL. CALL LIGHT IN REACH.
[2019-08-06 16:27] VITALS: BP 113/57
--- NOTE | 2019-08-06 16:28 | NUR ---
HOB ELEVATED. RESIDUAL 20 ML BROWN COLOR. FEED PT VIA PEG TUBE. THEN FLUSH WITH 200 ML OF WATER. PT TOLERATED WELL. CALL LIGHT IN REACH.
[2019-08-06 18:05] LABS: URINE BILIRUBIN - DIPSTICK NEGATIVE (NEGATIVE); URINE BLOOD DIPSTICK NEGATIVE (NEGATIVE); URINE COLOR YELLOW; URINE GLUCOSE - DIPSTICK NEGATIVE (NEGATIVE); URINE KETONE NEGATIVE (NEGATIVE); URINE LEUK ESTERASE NEGATIVE (NEGATIVE); URINE NITRITE - DIPSTICK NEGATIVE (Negative); URINE PROTEIN - DIPSTICK NEGATIVE (NEG-TRACE); URINE SPECIFIC GRAVITY >=1.030
[2019-08-06 18:45] VITALS: BP 114/57
--- NOTE | 2019-08-06 20:10 | NUR ---
PT AWAKE RESTING IN BED. ALERT AND ORIENTED X3. FAMILY AT BEDSIDE. RESP EVEN AND UNLABORED. O2 N/C ON AT 2L. LUNGS CLEAR BILAT. ABD SOFT AND NONDISTENDED WITH BOWEL SOUNDS PRESENT. PEG TUBE IS PATENT . NO LOWER EXT EDEMA NOTED. PEDAL PULSES PALPATED BILAT. TELE INTACT. IV SITE PATENT IN LEFT FOREARM NO REDNESS OR SWELLING AT SITE. IVF NSS AT 100CC/HR. PT OFFERS NO COMPLAINTS. REMAINS NPO. FREQUENT ROUNDS MADE. CALL ADKINS WITHIN REACH.
--- NOTE | 2019-08-06 22:00 | NUR ---
VOIDED 600CC OF CLEAR PIPER URINE. PEG TUBE SITE CONFIRMED FOR PLACEMENT. NO RESIDUAL NOTED. PEG FLUSHED WITH 100CC OF WATER, BOLUS TUBE FEED GIVEN WITH PULMICARE AND THEN FLUSHED WITH AN ADDITIONAL 100CC OF WATER WITHOUT ANY DIFFICULTY. ABD SOFT WITH BOWEL SOUNDS PRESENT. PT INSTRUCTED TO KEEP HOB ELEVATED AT A GREATER THAN 60 DEGREE ANGLE. PT STATES HE UNDERSTANDS. IV SITE PATENT. CALL ADKINS WITHIN REACH.
--- NOTE | 2019-08-06 22:38 | NUR ---
PT REQUESTING ATIVAN FOR SLEEP. MEDICATED WITH ATIVAN 0.5MG IV FOR SLEEP. HOB IS ELEVATED. FREQUENT ROUNDS MADE. CALL ADKINS WITHIN REACH.
[2019-08-07] VITALS (7 sets, daily range): BP systolic 115–135; BP diastolic 53–66
--- NOTE | 2019-08-07 00:30 | NUR ---
PT RESTING IN BED WITH EYES CLOSED. O2 N/C ON AT 2L. NO DISTRESS NOTED. IV SITE PATENT. FREQUENT ROUNDS MADE. CALL ADKINS WITHIN REACH.
--- NOTE | 2019-08-07 04:30 | NUR ---
PT AWAKE RESTING IN BED WATCHING T.V. RESP EVEN AND UNLABORED. IV SITE PATENT. NSS AT 100CC/HR. HOB IS ELEVATED. VOIDING CLEAR PIPER URINE. OFFERS NO COMPLAINTS. CALL ADKINS WITHIN REACH.
[2019-08-07 05:21] LABS: HEMATOCRIT 33.2 % (39.0-50.0); HEMOGLOBIN 10.9 g/dl (14.0-18.0); IMMATURE GRANULOCYTES 0.7 % (0.0-5.0); MEAN CELL VOLUME 91.5 fL CALC (80.0-100.0); MEAN CORPUSCULAR HGB CONC 32.8 g/L CALC (32.0-36.0); NEUT# 4.79 thou/uL (1.82-7.42); RED BLOOD COUNT 3.63 mill/uL (4.70-6.10); RED CELL DISTRI WIDTH 12.8 % (11.5-15.5)
[2019-08-07 05:39] LABS: ANION GAP 9 (6-22 (CALC)); BUN 19 mg/dL (8-23); BUN/CREATININE RATIO 30 (12-20 (CALC)); CARBON DIOXIDE 27 mmol/l (22-30); CHLORIDE 107 mmol/l (95-108); CREATININE 0.7 mg/dL (0.7-1.3); GFR > 60 ML/MIN (>=60 (CALC)); GFR FOR AFR.AMER. > 60 ML/MIN (>=60 (CALC)); POTASSIUM 4.9 mmol/l (3.5-5.1); SODIUM 138 mmol/l (137-146)
--- NOTE | 2019-08-07 06:10 | NUR ---
NO 0400 TELE READINGS HAVE BEEN FAXED FROM [facility] UNABLE TO CHART O400 TELE READINGS.
--- NOTE | 2019-08-07 07:00 | NUR ---
SHIFT CHANGE REPORT, PT SLEEPING BUT AROUSED TO VERBAL STIMULI, O2 @ 2L VIA NC IN PLACE, TELE MONITOR IN PLACE, ALL NEEDS ADDRESSED, CALL ADKINS IN REACH.
--- NOTE | 2019-08-07 08:56 | NUR ---
PT REFUSED THERAPY. STATED HE WAS HUNGRY, TIRED AND FRUSTRATED. PT IS CURRENTLY NPO.
--- NOTE | 2019-08-07 10:11 | NUR ---
ADDENDUM: PT WAS SEEN YESTERDAY WITH 2.5L OF O2, SPO2 AT 96%. HE HAD DYSPNEA ON LIGHT EXERTION WITH EASY FATIGUABILITY. IT WAS ALSO DISCUSSED WITH MD THAT PT MAY BENEFIT FROM IN-PT REHAB DUE TO HIS LIVING SITUATION GIVEN THAT HE LIVES ALONE AND HAS POOR FUNCTIONAL LEVEL AND ENDURANCE. HE ALSO REQUIRED MOD ASSISTANCE ON ALL FUNCTIONAL ACTIVTIES DURING THE INITIAL EVALUATION. HE MAY BENEFIT FROM SUPPLEMENTAL O2 UPON DC TO HELP AUGMENT ENDURANCE LEVEL.
--- NOTE | 2019-08-07 12:00 | NUR ---
RESTING IN BED AT THIS TIME, PEG FEED AND FLUSH DONE, PT C/O OF BEING ANXIOUS AND NEEDING HIS "NERVE MEDICINE", CONDITION ADDRESSED.
--- NOTE | 2019-08-07 16:00 | NUR ---
RESTING CALMLY, NO C/O DISCOMFORT.
--- NOTE | 2019-08-07 20:15 | NUR ---
PT AWAKE RESTING IN BED. ALERT AND ORIENTED X3. RESP EVEN AND UNLABORD. LUNGS REVEAL COARSE BREATH SOUNDS. ABD SOFT WITH PEG TUBE PATENT. BOWEL SOUNDS PRESENT IN ALL 4 QUADS. NO LOWER EXT EDEMA NOTED. PEDAL PULSES PALPATED BILAT. NO LOWER EXT EDEMA NOTED. PEDAL PULSES PALPATED BILAT. IV SITE PATENT IN LEFT FOREARM NO REDNESS OR SWELLING AT SITE. NSS AT 100CC/HR. TELE INTACT. DRESSING AROUND PEG TUBE CHANGED AND NYSTATIN APPLIED. PT OFFERS NO COMPLAINTS. FREQUENT ROUNDS MADE. CALL ADKINS WITHIN REACH.
--- NOTE | 2019-08-07 20:30 | NUR ---
NO RESIDUAL FROM PEG TUBE. CONFIRMED PLACEMENT. FLUSHED WITHOUT ANY DIFFICULTY. PULMICARE GIVEN AND FOLLOWED BY 200CC WATER FLUSH. PT TOLERATED WITHOUT ANY DIFFICULTY. CALL ADKINS WITHIN REACH.
--- NOTE | 2019-08-07 22:00 | NUR ---
CONFIRMED PLACEMENT. PULMICARE GIVEN FOLLOWED BY 200CC WATER FLUSH. TOLERATED WITHOUT ANY DIFFICULTY. PT IS AWARE TO KEEP HEAD OF BED ELEVATED GREATER THAT 45 DEGREES. OFFERS NO COMPLAINTS. FREQUENT ROUNDS MADE. CALL ADKINS WITHIN REACH.
--- NOTE | 2019-08-08 00:27 | NUR ---
RESTING IN BED WATCHING T.V. O2 N/C ON AT 2L. IV SITE PATENT. RESP EVEN AND UNLABORED. FREQUENT ROUNDS MADE. CALL ADKINS WITHIN REACH.
--- NOTE | 2019-08-08 02:30 | NUR ---
RESTING IN BED WITH EYES CLOSED. RESP EVEN AND UNLABORED. NO DISTRESS NOTED. O2 N/C ON AT 2L. IV SITE PATENT NSS AT 25CC/HR. FREQUENT ROUNDS MADE. CALL ADKINS WITHIN REACH.
[2019-08-08 05:00] VITALS: BP 110/60
--- NOTE | 2019-08-08 07:00 | NUR ---
SHIFT CHANGE REPORT, PT SLEEPING IN SUPINE POSITION, BREATHING EVEN AND NON-LABORED, TELE MONITOR IN PLACE, NO SIGN DISCOMFORT, CALL ADKINS IN REACH.
[2019-08-08 08:01] VITALS: BP 123/59
--- NOTE | 2019-08-08 08:32 | NUR ---
AWAKE ALERT AND ORIENTED, NO C/O DISCOMFORT, CALL ADKINS IN REACH.
[2019-08-08 10:58] VITALS: BP 133/75
--- NOTE | 2019-08-08 14:18 | NUR ---
PT WAS SEEN FOR GT. HE WAS SUPINE ON BED, C/O SOB WHEN MOVING. SUPINE TO SIT AND SIT TO STAND INDEPENDENTLY WITH SBA TO ENSURE SAFETY. HE THEN AMBULATED FROM BED TO COUCH ~10 FT AWAY W/O AD WITH CGA AND GAIT BELT. HE REQUESTED TO BE SAT DOWN IN THE COUCH BEFORE RETURNING TO BED THEN TO RECLINER ON BEDSIDE. SPO2 REMAINED AT 96% WITH 2L O2 ALTHROUGHT THE ACTIVITY. LEFT PT W/ CALL ADKINS ON HIS LAP. NO ADVERSE RXNS NOTED OR REPORTED AT THE END OF TX.
[2019-08-08 15:40] VITALS: BP 110/62
[2019-08-08] MEDS ORDERED: AUGMENTIN400 MG/5 M PO (15:46)
[2019-08-08] MEDS ORDERED: MEDDOSEPAK PO (15:46)
--- NOTE | 2019-08-08 17:16 | NUR ---
REPORT CALLED TO JAY (RN) AT [facility], PT EXPECTED DEPARTURE TIME IS 1800
--- NOTE | 2019-08-08 17:57 | NUR ---
Discharge instructions given. Patient verbalizes understanding of same. Discharged in stable condition via Wheel[facility] to [facility] with *Other. All belongings sent with pt.
== END 2019-08-08 17:50 | DRG 178 ==
LOC: ED 19:41 → ED-I 21:10 → ED 21:28 → MS2 21:29
PROVIDERS: Family Medicine; Nurse Practitioner Family; ADMIT Internal Medicine; ATTEND Internal Medicine
PROC: 3E02340 Introduction of Influenza Vaccine into Muscle, Percutaneous Approach (ICD-10-PCS; principal; 2019-08-05)
PROC: 0D20XUZ Change Feeding Device in Upper Intestinal Tract, External Approach (ICD-10-PCS; 2019-08-06)
DX: J69.0 Pneumonitis due to inhalation of food and vomit (principal); J44.1 Chronic obstructive pulmonary disease with (acute) exacerbation; E46 Unspecified protein-calorie malnutrition; R64 Cachexia; K94.22 Gastrostomy infection; B37.89 Other sites of candidiasis; I25.10 Atherosclerotic heart disease of native coronary artery without angina pectoris; M19.90 Unspecified osteoarthritis, unspecified site; I71.4 Abdominal aortic aneurysm, without rupture; E78.5 Hyperlipidemia, unspecified; K44.9 Diaphragmatic hernia without obstruction or gangrene; B19.20 Unspecified viral hepatitis C without hepatic coma; I10 Essential (primary) hypertension; F41.1 Generalized anxiety disorder; R13.10 Dysphagia, unspecified; R62.7 Adult failure to thrive; F17.200 Nicotine dependence, unspecified, uncomplicated; M62.81 Muscle weakness (generalized); Y83.3 Surgical operation with formation of external stoma as the cause of abnormal reaction of the patient, or of later complication, without mention of misadventure at the time of the procedure; Z68.20 Body mass index [BMI] 20.0-20.9, adult; Z85.810 Personal history of malignant neoplasm of tongue; Z86.711 Personal history of pulmonary embolism; Z91.19 Patient's noncompliance with other medical treatment and regimen; Z23 Encounter for immunization
CPT/HCPCS: G0378; J1650; J2060

== ENCOUNTER 2019-10-27 | Inpatient (IN) | payer MEDICARE ==
--- NOTE | 2019-10-26 17:38 | NUR ---
PT IMMEDIATELY TO ROOM FOR BEDSIDE EVAL AND TX. PT WITH DYSPNEA, SOB AND DIFFICULTY COMPLETING SENTENCES VERBALLY.WHEEZING AND RHONCHI THROUGHOUT LUNG MART.
[2019-10-26 18:09] LABS: HEMATOCRIT 46.7 % (39.0-50.0); HEMOGLOBIN 15.4 g/dl (14.0-18.0); IMMATURE GRANULOCYTES 0.4 % (0.0-5.0); MEAN CELL VOLUME 91.4 fL CALC (80.0-100.0); MEAN CORPUSCULAR HGB 30.1 pG CALC (26.0-32.0); NEUT# 10.55 thou/uL (1.82-7.42); RED BLOOD COUNT 5.11 mill/uL (4.70-6.10); RED CELL DISTRI WIDTH 13.6 % (11.5-15.5)
[2019-10-26 18:25] LABS: ALBUMIN 4.8 g/dL (3.2-5.0); ALKALINE PHOSPHATASE 91 u/l (38-126); ANION GAP 18 (6-22 (CALC)); BILIRUBIN, TOTAL 1.4 mg/dL (0.0-1.4); BUN 24 mg/dL (8-23); BUN/CREATININE RATIO 26 (12-20 (CALC)); CARBON DIOXIDE 22 mmol/l (22-30); CHLORIDE 100 mmol/l (95-108); CREATININE 0.9 mg/dL (0.7-1.3); GFR > 60 ML/MIN (>=60 (CALC)); GFR FOR AFR.AMER. > 60 ML/MIN (>=60 (CALC)); SGOT/AST 33 u/l (19-48); SODIUM 136 mmol/l (137-146)
[2019-10-26 18:28] LABS: POTASSIUM 3.9 mmol/l (3.5-5.1)
[2019-10-26 18:36] LABS: MYOGLOBIN 77 ng/mL (0 - 121)
--- NOTE | 2019-10-26 19:00 | NUR ---
RECEIVED REPORT FROM WILLY GOODE. UPDATED MEDICATION LIST. PT REEKS OF CIGARETTES.
--- NOTE | 2019-10-26 20:00 | NUR ---
REPEAT LACTIC ACID DRAWN.
--- NOTE | 2019-10-26 20:17 | NUR ---
BREATHING TREATMENT GIVEN BACK TO BACK WITH UNIT DOSE ALBUTEROL AND UNIT DOSE DUONEB. BREATHING TECH. FOR GOOD DEPOSITION TO THE LUNGS.
--- NOTE | 2019-10-26 20:55 | NUR ---
REPORT GIVEN TO WILLY FALK. WAITING ON ADMIT ORDERS.
--- NOTE | 2019-10-26 21:38 | NUR ---
ORDERS RECEIVED FOR ADMIT AND PT TAKING UP TO FLOOR.
[2019-10-26 21:45] VITALS: BP 105/56
--- NOTE | 2019-10-26 21:54 | NUR ---
PT ARRIVED TO THE MED SURG UNIT VIA STRETCHER ACCOMPANIED BY ED NURSE. V/S ASSESSED AND PT ORIENTED TO ROOM
[2019-10-26 23:15] VITALS: BP 105/61
--- NOTE | 2019-10-26 23:21 | NUR ---
PT MEDICATED ORDERS PROVIDE AND PT V/S REASSESSED. PT SWEATING, AFEBRILE AT THIS TIME. PT LOCX3, RESPIRATIONS LABORED @28. 02 SAT LEVEL 95%ON NC 2L 02.
[~2019-10-27] MED LIST changes: +ADVAIR DISK1 IN; +AUGMENTIN400 MG/5 M PO
[2019-10-27 00:30] VITALS: BP 110/60
[2019-10-27 04:40] VITALS: BP 110/62
--- NOTE | 2019-10-27 04:40 | NUR ---
PT V/S ASSESSED AT THIS TIME AND URINAL EMPTIED OF PIPER URINE 400CC. PT DENIES ANY OTHER NEEDS AT THIS TIME.
--- NOTE | 2019-10-27 04:48 | NUR ---
PT MEDICATED ORDERS PROVIDE. DENIES ANY OTHER NEEDS AT THIS TIME.
--- NOTE | 2019-10-27 07:20 | NUR ---
REPORT RECEIVED FROM WILLY FALK;PT RESTING IN SEMI FOWLERS POSITION;INTRODUCED SELF TO PT AND POC DISCUSSED;RESPIRATIONS EVEN AND UNLABORED ON O2 @ 2L VIA NC;PT DENIES ANY CURRENT PAIN OR NEEDS;TELE MONITORING IN PLACE;PT ENCOURAGED TO CALL FOR ASSISTANCE IF NEEDED;FALL PRECAUTIONS IN PLACE WITH CALL LIGHT IN REACH;WILL CONTINUE TO MONITOR
[2019-10-27 08:40] VITALS: BP 104/65
--- NOTE | 2019-10-27 08:40 | NUR ---
PT RESTING IN SEMI FOWLERS POSITION,A&O X3;VS OBTAINED AND ASSESSMENT COMPLETED;PT DENIES ANY CURRENT PAIN OR DISCOMFORTS,PAIN SCALE AND REPORTING EDUCATED;RESPIRATIONS EVEN AND UNLABORED ON O2 @ 2L VIA NC,NON-PRODUCTIVE COUGH AT TIMES;ABDOMEN SOFT ON PALPATION AND ACTIVE IN ALL 4 QUADRANTS;PEG TUBE NOTED PT REPORTS THAT HE DOES NOT USE IT, NPO DIET REINFORCED AT THIS TIMELL.LAVELL ROCKWELL NOTIFIED OF DIET;WEAK PEDAL PULSES;SKIN INTACT;TELE MONITORING IN PLACE;#18G TO RAC FLUSHED AND PATENT,SITE APPEARS HEALTHY;PT DENIES ANY ADDITIONAL NEEDS AND IS ENCOURAGED TO CALL FOR ASSISTANCE IF NEEDED;CALL LIGHT IN REACH;WILL CONTINUE TO MONITOR
[2019-10-27 11:43] VITALS: BP 107/59
--- NOTE | 2019-10-27 12:30 | NUR ---
PT RESTING IN SEMI FOWLERS POSITION;RESPIRATIONS REMAIN EVEN AND UNLABORED ON O2 @ 2L VIA NC;PT DENIES ANY CURRENT PAIN OR DISCOMFORTS;TELE MONITORING IN PLACE;DIET ADVANCED TO CARDIAC BY ANRP, ASPIRATION PRECAUTIONS IN PLACE;PT DENIES ANY ADDITIONAL NEEDS AND IS ENCOURAGED TO CALL FOR ASSISTANCE IF NEEDED;CALL LIGHT IN REACH;WILL CONTINUE TO MONITOR
[2019-10-27 12:53] LABS: MEAN CELL VOLUME 89.2 fL CALC (80.0-100.0); MEAN CORPUSCULAR HGB 30.2 pG CALC (26.0-32.0); MEAN CORPUSCULAR HGB CONC 33.9 g/L CALC (32.0-36.0); RED BLOOD COUNT 4.34 mill/uL (4.70-6.10); RED CELL DISTRI WIDTH 13.2 % (11.5-15.5)
[2019-10-27 12:57] LABS: HEMATOCRIT 38.7 % (39.0-50.0); HEMOGLOBIN 13.1 g/dl (14.0-18.0)
[2019-10-27 13:19] LABS: ANION GAP 12 (6-22 (CALC)); BUN 24 mg/dL (8-23); BUN/CREATININE RATIO 40 (12-20 (CALC)); CARBON DIOXIDE 21 mmol/l (22-30); CHLORIDE 108 mmol/l (95-108); CREATININE 0.6 mg/dL (0.7-1.3); GFR > 60 ML/MIN (>=60 (CALC)); GFR FOR AFR.AMER. > 60 ML/MIN (>=60 (CALC)); SODIUM 138 mmol/l (137-146)
[2019-10-27 15:10] VITALS: BP 110/63
--- NOTE | 2019-10-27 16:10 | NUR ---
PT RESTING IN SEMI FOWLERS POSITION;RESPIRATIONS EVEN AND UNLABORED ON O2 @ 2L VIA NC;PT DENIES ANY CURRENT PAIN OR DISCOMFORTS;TELE MONITORING IN PLACE;IV SITE PATENT;ASSESSMENT REMAINS UNCHANGED AT THIS TIME;PT ENCOURAGED TO CALL FOR ASSISTANCE IF NEEDED;FALL PRECAUTIONS IN PLACE WITH CALL LIGHT IN REACH;WILL CONTINUE TO MONITOR
[2019-10-27 18:53] VITALS: BP 110/70
--- NOTE | 2019-10-27 20:40 | NUR ---
ASSESSMENT COMPLETED. IV SITE PATENT AND SL, FLUSHED WITH NS. DENIES NEEDS/PAIN. TELEMETRY IN PLACE. UPDATED WITH POC. O2 INFUSING PER NC PER ORDER. URINAL AT BEDSIDE. CALL LIGHT IS IN REACH.
[2019-10-28 00:13] VITALS: BP 118/54
--- NOTE | 2019-10-28 00:25 | NUR ---
PT. RESTING IN BED WITH NO DISTRESS NOTED; REPORTS HE HAD A BM AND VOIDED IN BATHROOM. INSTRUCTED TO USE URINAL FOR ALL VOIDS AND VERBALIZES UNDERSTANDING. PT. REFUSES TO SHOWER. THIS TEST FACILITY ENGINEER CLEANED AROUND PEG TUBE INSERTION SITE AND YAMILET GAUZE APPLIED. WASH CLOTH PROVIDED FOR HANDS. ENCOURAGED TO CALL FOR ANY NEEDS. CALL LIGHT IS IN REACH.
--- NOTE | 2019-10-28 04:25 | NUR ---
PT. RESTING IN BED WITH NO DISTRESS NOTED; WATCHING TV, URINAL EMPTIED. DENIES NEEDS. CALL LIGHT IS IN REACH.
[2019-10-28 05:15] VITALS: BP 101/52
--- NOTE | 2019-10-28 07:15 | NUR ---
REPORT RECEIVED FROM SILVERRN;PT RESTING IN SEMI FOWLERS POSITION;INTRODUCED SELF TO PT AND POC DISCUSSED;RESPIRATIONS EVEN AND UNLABORED ON O2 @ 2L VIA NC;PT DENIES ANY CURRENT PAIN OR NEEDS;TELE MONITORING IN PLACE;PT ENCOURAGED TO CALL FOR ASSISTANCE IF NEEDED;FALL PRECAUTIONS IN PLACE WITH CALL LIGHT IN REACH;WILL CONTINUE TO MONITOR
[2019-10-28 08:37] VITALS: BP 107/59
--- NOTE | 2019-10-28 08:40 | NUR ---
PT RESTING IN SEMI FOWLERS POSITION,A&O X3;VS OBTAINED AND ASSESSMENT COMPLETED;PT DENIES ANY CURRENT PAIN OR DISCOMFORTS,PAIN SCALE AND REPORTING EDUCATED;RESPIRATIONS EVEN AND UNLABORED ON O2 @ 2L VIA NC,PRODUCTIVE COUGH NOTED AT TIMES;ABDOMEN SOFT ON PALPATION AND ACTIVE IN ALL 4 QUADRANTS;PEG TUBE NOTED TO ABDOMEN;WEAK PEDAL PULSES;SKIN INTACT;TELE MONITORING IN PLACE;#18G TO RAC FLUSHED AND PATENT,SITE APPEARS HEALTHY;PT DENIES ANY ADDITIONAL NEEDS AND IS ENCOURAGED TO CALL FOR ASSISTANCE IF NEEDED;CALL LIGHT IN REACH;WILL CONTINUE TO MONITOR
--- NOTE | 2019-10-28 09:32 | NUR ---
SPEECH THERAPY AT BEDSIDE
[2019-10-28 11:16] VITALS: BP 109/60
--- NOTE | 2019-10-28 11:34 | NUR ---
AT BEDSIDE DISCUSSING POC WITH PT.
--- NOTE | 2019-10-28 12:15 | NUR ---
PT RESTING AT BEDSIDE;RESPIRATIONS EVEN AND UNLABORED ON O2 @ 2L VIA NC;PT DENIES ANY CURRENT PAIN OR NEEDS;TELE MONITORING IN PLACE;IV SITE PATENT;ASSESSMENT REMAINS UNCHANGED;ENCOURAGED TO CALL FOR ASSISTANCE IF NEEDED;CALL LIGHT IN REACH;WILL CONTINUE TO MONITOR
--- NOTE | 2019-10-28 15:30 | NUR ---
PT RESTING IN SEMI FOWLERS POSITION;RESPIRATIONS EVEN AND UNLABORED,SHALLOW ON O2 @ 2L VIA NC;PT DENIES ANY CURRENT PAIN OR NEEDS;TELE MONITORING IN PLACE;IV SITE TO [facility] PATENT;FRESH WATER PROVIDED;ASSESSMENT REMAINS UNCHANGED;ENCOURAGED TO CALL FOR ASSISTANCE IF NEEDED;CALL LIGHT IN REACH;WILL CONTINUE TO MONITOR
[2019-10-28 15:32] VITALS: BP 105/48
--- NOTE | 2019-10-28 16:24 | NUR ---
PHYSICAL THERAPY AT BEDSIDE
--- NOTE | 2019-10-28 17:08 | NUR ---
O.T. RECEIVED ORDERS AND ATTEMPTED TO EVALUATE PT. 4:45 P.M., HOWEVER, PT. DECLINED. O.T. WILL ATTEMPT AGAIN TOMORROW.
[2019-10-28 19:00] VITALS: BP 108/50
--- NOTE | 2019-10-28 19:51 | NUR ---
PT. RESTING IN BED WITH NO DISTRESS NOTED; DENIES NEEDS/PAIN. ASSESSMENT COMPLETED. ABDIEL, RN RESTARTED IV SITE TO RFA #22 GAUGE AND RAC REMOVED WITH CATHETER TIP INTACT. ENCOURAGED TO DEEP BREATHE. PEG TUBE INTACT AND CLAMPED. UPDATED ON POC. CALL LIGHT IS IN REACH.
--- NOTE | 2019-10-28 21:30 | NUR ---
PT. C/O SLEEPLESSNESS AND MEDICATED WITH ORDERED RESTORIL ALONG WITH SCHED MEDS. PEG TUBE RESIDUAL 5MLS AND RETURNED AND BOLUS FEED GIVEN ALONG WITH FLUSH PER ORDER. HOB REMAINS ELEVATED. DENIES FURTHER NEEDS. CALL LIGHT IS IN REACH.
[2019-10-29] VITALS (8 sets, daily range): BP systolic 100–133; BP diastolic 52–72
--- NOTE | 2019-10-29 00:30 | NUR ---
PEG TUB BOLUS FEED GIVEN, RESIDUAL PRIOR IS 0 MLS. PT. TOLERATED WELL. URINAL EMPTIED. OFFERRS NO COMPLAINTS. CALL LIGHT IS IN REACH.
--- NOTE | 2019-10-29 03:24 | NUR ---
RESTING IN BED WITH NO DISTRESS NOTED; DENIES NEEDS.
--- NOTE | 2019-10-29 07:15 | NUR ---
REPORT RECEIVED FROM WILLY SHEPPARD;PT APPEARS TO BE SLEEPING IN SEMI FOWLERS POSITION;NO S/S OF DISTRESS NOTED;RESPIRATIONS EVEN AND UNLABORED ON O2 @ 2L VIA NC;TELE MONITORING IN PLACE;ALL SAFETY PRECAUTIONS REMAIN IN PLACE WITH BED IN THE LOWEST POSITION AND CALL LIGHT IN REACH;WILL CONTINUE TO MONITOR
--- NOTE | 2019-10-29 10:00 | NUR ---
PT RESTING IN SEMI FOWLERS POSITION,A&O X3;VS OBTAINED AND ASSESSMENT COMPLETED;PT DENIES ANY CURRENT PAIN OR DISCOMFORTS,PAIN SCALE AND REPORTING EDUCATED;RESPIRATIONS EVEN AND UNLABORED,SHALLOW ON O2 @ 2L VIA NC;PRODUCTIVE COUGH NOTED AT TIMES;ABDOMEN SOFT ON PALPATION AND ACTIVE IN ALL 4 QUADRANTS;PEG TUBE PATENT WITH 0 RESIDAUL NOTED PRIOR TO FEEDING,FEEDING ADMINISTERED AT THIS TIME AND PT TOLERATED WELL;STRONG PEDAL PULSES;SKIN INTACT;TELE MONITORING IN PLACE;#22G TO RFA FLUSHED AND PATENT,SITE APPEARS HEALTHY;PT DENIES ANY ADDITIONAL NEEDS AND IS ENCOURAGED TO CALL FOR ASSISTANCE IF NEEDED;CALL LIGHT IN REACH;WILL CONTINUE TO MONITOR
--- NOTE | 2019-10-29 12:10 | NUR ---
PT RESTING AT BEDSIDE WITH VISITOR AT SIDE;RESPIRATIONS EVEN AND UNLABORED ON O2 @ 2L VIA NC;PT DENIES ANY CURRENT PAIN OR NEEDS;TELE MONITORING IN PLACE;IV SITE PATENT;ASSESSMENT REMAINS UNCHANGED AT THIS TIME;ENCOURAGED TO CALL FOR ASSISTANCE IF NEEDED;CALL LIGHT IN REACH;WILL CONTINUE TO MONITOR
--- NOTE | 2019-10-29 12:49 | NUR ---
OCCUPATIONAL THERAPY AT BEDSIDE.
--- NOTE | 2019-10-29 13:00 | NUR ---
FEEDING TUBE NOTED TO BE LEAKING.LAVELL RENEE NOTIFIED AND ORDERS TO HOLD TUBE FEEDINGS OBTAINED AT THIS TIME.
--- NOTE | 2019-10-29 14:03 | NUR ---
[facility] SCORE TODAY: 16 POINTS PT AMBULATED IN THE HALLWAY ~80 FT X 2 W/O AD, WITH PORTABLE O2. HIS O2 SATS REMAINED 98% ALTHROUGHOUT THE ACTIVITY, HOWEVER, HAD SEVERE DYSPNEA. HE TOOK A SHORT REST BREAK AND SAT DOWN IN THE CHAIR BEFORE PROCEEDING. NO ADVERSE RXNS NOTED OR REPORTED AT THE END OF TX.
--- NOTE | 2019-10-29 16:00 | NUR ---
PT RESTING IN SEMI FOWLERS POSITION;RESPIRATIONS REMAIN EVEN AND UNLABORED ON O2 @ 2L VIA NC;PT DENIES ANY CURRENT PAIN OR NEEDS;TELE MONITORING IN PLACE;IV SITE PATENT;PEG TUBE SITE APPEARS CLEAN;PT DENIES ANY ADDITIONAL NEEDS AND IS ENCOURAGED TO CALL FOR ASSISTANCE IF NEEDED;CALL LIGHT IN REACH;WILL CONTINUE TO MONITOR
--- NOTE | 2019-10-29 19:50 | NUR ---
IV ANTIBIOTIC THERAPY RUNNING AT [facility]. PT IS ON CELL PHONE. DENIES ANY OTHER NEEDS. CALL LIGHT NEAR W/IN REACH.
--- NOTE | 2019-10-29 21:35 | NUR ---
PT MEDICATED ORDERS PROVIDE. ASSESSMENT COMPLETED AT THIS TIME. PT ASKING FOR SNACK/PROVIDED. POC DISCUSSED. PT EXPRESSING FRUSTRATION AT THIS TIME THAT PEG TUBE WAS NOT DEALT WITH TODAY. CALL LIGHT LEFT AT SIDE.
--- NOTE | 2019-10-29 22:22 | NUR ---
ED CALLED TO REPORT 8 BEAT RUN OF V-TACH. PT ASSESSED TO BE ASYMPTOMATIC AT THIS TIME. DENIES SOB GREATER THAN TYPICAL FOR THIS HOSPITAL STAY, DENIES CHEST PAIN/N/V OR PALPATATIONS. V/S ASSESSED 126/60, HR 69, R20, 02 @99% TEMP 98.3.
--- NOTE | 2019-10-30 01:30 | NUR ---
PT WAS SLEEPING W/LIGHTS AND TV ON I OPENED THE DOOR, AWOKE TO MY ENTERING, DENIED ANY NEEDS. NO S/O DISTRESS NOTED.
--- NOTE | 2019-10-30 03:50 | NUR ---
PT SLEEPING AT THIS TIME, AWOKE TO MY ENTERING ROOM. NO S/O DISTRESS NOTED. CALL LIGHT AT SIDE.
[2019-10-30 03:56] VITALS: BP 125/71
[2019-10-30 05:20] LABS: HEMATOCRIT 35.6 % (39.0-50.0); HEMOGLOBIN 11.9 g/dl (14.0-18.0); MEAN CELL VOLUME 91.5 fL CALC (80.0-100.0); MEAN CORPUSCULAR HGB 30.6 pG CALC (26.0-32.0); MEAN CORPUSCULAR HGB CONC 33.4 g/L CALC (32.0-36.0); RED BLOOD COUNT 3.89 mill/uL (4.70-6.10); RED CELL DISTRI WIDTH 13.2 % (11.5-15.5)
[2019-10-30 05:47] LABS: ANION GAP 10 (6-22 (CALC)); BUN 16 mg/dL (8-23); BUN/CREATININE RATIO 30 (12-20 (CALC)); CHLORIDE 104 mmol/l (95-108); CREATININE 0.6 mg/dL (0.7-1.3); GFR > 60 ML/MIN (>=60 (CALC)); GFR FOR AFR.AMER. > 60 ML/MIN (>=60 (CALC)); MAGNESIUM 2.1 mg/dL (1.6-2.3); POTASSIUM 4.3 mmol/l (3.5-5.1); SODIUM 138 mmol/l (137-146)
[2019-10-30 05:57] LABS: CARBON DIOXIDE 28 mmol/l (22-30)
[2019-10-30 08:00] VITALS: BP 124/65
--- NOTE | 2019-10-30 09:45 | NUR ---
PATIENT PERFORMED GAIT TRAINING WITHOUT ASSISTIVE DEVICE, 85 FEET, SBA FOR SAFETY. VERBAL CUES TO [employer]ORPORATE DDBE AND PACING TECHNIQUE FOR SAFETY. PATIENT REQUIRED 1 SEATED REST PERIOD DUE TO FATIGUE AND MIN SOB. OXYGEN USED TO DURING GAIT TRAINING AND O2 SAT LEVEL REMAINED WNL AT 95% THROUGHOUT THE PT SESSION. AMPAC = 15
[2019-10-30 10:50] VITALS: BP 122/62
[2019-10-30 14:55] VITALS: BP 132/63
[2019-10-30 19:58] VITALS: BP 109/56
--- NOTE | 2019-10-30 21:23 | NUR ---
PT MEDICATED ORDERS PROVIDE, PT DENIES ANY NEEDS. PT ASSESSMENT COMPLETED AT THIS TIME. NO S/O DISTRESS NOTED. CALL LIGHT AT SIDE AND PT ENCOURAGED TO CALL.
--- NOTE | 2019-10-30 23:08 | NUR ---
PT MEDICATE ORDERS PROVIDE. DRESSING PLACED TO PEG TUBE/SMALL AMOUNT OF YELLOW DISCHARGE FROM INSERTION SITE.
[2019-10-31 00:04] VITALS: BP 126/62
--- NOTE | 2019-10-31 03:18 | NUR ---
AIDE IN W/PT. NO S/O DISTRESS NOTED. V/S OBTAINED. PT AWAKE WATCHING TV.
[2019-10-31 03:54] VITALS: BP 129/63
--- NOTE | 2019-10-31 05:44 | NUR ---
DRESSING REPLACED TO PEG TUBE INSERTION SITE, SMALL AMOUNT OF YELLOW DRAINAGE TO SITE. PT MEDICATED ORDER PROVIDE.
[2019-10-31 09:30] VITALS: BP 133/63
--- NOTE | 2019-10-31 09:55 | NUR ---
[facility] SCORE TODAY: 19 POINTS PT WILL BENEFIT FROM [facility] OR HOME HEALTH PHYS THERAPY TO IMPROVE HIS ENDURANCE LEVEL. PT WAS INDEPENDENT ON ALL FA. HIS RESTING SATS ON ROOM AIR WAS 95% WITH MILD SOB WHILE CONVERSING WITH ME. HE MAINTAINED GOOD STANDING BALANCE WITHOUT AD THEN PROCEEDED TO AMBULATE IN THE HALLWAY WITH SBA FROM THERAPIST X 80 FT X 2 WITH REST BREAK PENITENTIARY. HE AMBULATED WITHOUT SUPPLEMENTARY O2, HE DESAT TO 94% PENITENTIARY WITH MORE PRONOUNCED DYSPNEA WHILE RESTING IN SITTING HOWEVER WAS STILL ABLE TO CARRY ON A CONVERSATION WITH ME. AFTER ABOUT 3 MINS OF RESTING, PT PROCEEDED TO RETURN TO ROOM WITHOUT ADVERSE REACTIONS NOTED OR REPORTED. PT HAS VERY LIMITED ENDURANCE LEVEL ALONG WITH SEVERE DYSPNEA W/O MARKED O2 DESATURATION. HE ALSO FREQUENTLY STATES "I CAN'T BREATHE" DURING THE ACTIVITIES. HE WAS ASSISTED BACK TO HIS ROOM WITH SATS BACK TO 95%, VITALS STABILIZED.
[2019-10-31 11:20] VITALS: BP 128/64
[2019-10-31 15:51] VITALS: BP 124/67
[2019-10-31 18:35] VITALS: BP 144/61
--- NOTE | 2019-10-31 19:05 | NUR ---
REPORT RECEIVED FROM WILLY PAUL. PT RESTING IN BED. NO S/S OF DISTRESS AT THIS TIME. WILL CONTINUE TO MONITOR.
--- NOTE | 2019-10-31 20:50 | NUR ---
PT RESTING IN BED, ALERT AND OREINTED. RESPIRATIONS EVEN AND UNLABORED ON O2 @ 2L VIA NC. LUNGS SOUND DIMINISHED. PEDAL PULSES WEAK. PT DENIES ANY PAIN OR DISCOMFORT AT THIS TIME. PEG TUBE PLACEMENT ASSESSED, 1 CAN OF JEVITY FOLLOWED BY 150CC FLUSH PT TOLERATED WELL. SAFETY PRECAUTIONS IN PLACE. WILL CONTINUE TO MONITOR.
--- NOTE | 2019-11-01 00:35 | NUR ---
PT RESTING IN BED, RESPIRATIONS EVEN AND UNLABORED. PEG TUBE PLACEMENT ASSESSED, NO RESIDUAL NOTED AT THIS TIME. PT TOLERATED FEED WELL. SAFETY PRECAUTIONS IN PLACE. WILL CONTINUE TO MONITOR.
[2019-11-01 03:35] VITALS: BP 141/61
--- NOTE | 2019-11-01 04:20 | NUR ---
PT RESTING IN BED. PT REFUSED PEG TUBE FEEDING STATING "THE DAMN THINGS LEAKING AGAIN. NO POINT IN DOING THE FEEDING". PEG TUBE DRESSING CHANGED. SAFETY PRECAUTIONS IN PLACE. WILL CONTINUE TO MONITOR.
--- NOTE | 2019-11-01 07:52 | NUR ---
PT RESTING IN BED, NO SIGNS OF DISTRESS NOTED, RESP EVEN AND UNLABORED. PT SITTING ON SIDE OF BED EATING BREAKFAST. VOICES NO NEEDS OR COMPLAINTS AT THIS TIME. VITALS OBTAINED. CALL LIGHT IN REACH,CONTINUE TO MONITOR.
[2019-11-01 07:54] VITALS: BP 98/68
--- NOTE | 2019-11-01 09:10 | NUR ---
PT RESTING IN BED, NO SIGNS OF DISTRESS NOTED, RESP EVEN AND UNLABORED. PT ALERT AND ORIENTED X3. DISCUSSED POC AND TUBE FEEDINGS PT REFUSED STATES HIS TUBE IS LEAKING, NOTED ORANGE SUBSTANCE TO YAMILET GAUZE. NEW GAUZE APPLIED, SECURED WITH TAPE, CHECKED PLACEMENT OF PEG TUBE, NO RESIDUAL. PT STATES HE DRINKS THE JEVITY, AND HE IS NOT SUPPOSED TO EAT BY MOUTH BUT IF HE IS GOING TO ANYWAY HE MIGHT WELL HAPPY. PT WEARING 02 2LNC, STATES HE DOESNT WEAR IT AT HOME BUT HAS IT. PT IS ALSO A SMOKER. ASSESSMENT COMPLETED, CALL LIGHT IN REACH,CONTINUE TO MONITOR.
[2019-11-01 11:16] VITALS: BP 133/61
[2019-11-01] MEDS ORDERED: ZPAK PO (13:16)
[2019-11-01] MEDS ORDERED: MEDDOSEPAK PO (13:16)
--- NOTE | 2019-11-01 14:45 | NUR ---
PT RESTING IN BED, NO RESIDUAL AT THIS TIME. PT GIVEN A TUBE FEEDING, NO LEAKING OF PEG TUBE NOTED, PT TOLERATED WELL. PT STATES HE DOES NOT HAVE O2 AT HOME, O2 REMOVED AT THIS TIME, RT TO DO A 6MIN WALK TEST. CONTINUE TO MONITOR.
[2019-11-01 15:44] VITALS: BP 131/67
--- NOTE | 2019-11-01 15:48 | NUR ---
[facility] DELIVERED OXYGEN.
--- NOTE | 2019-11-01 17:34 | NUR ---
Discharge instructions given. Patient verbalizes understanding of same. Discharged in stable condition via Wheelchair to Home with family. All belongings sent with pt.
[2020-08-03] MEDS ORDERED: ASPIRIN ADULT L81 M2 PO (08:46)
[2020-08-03] MEDS ORDERED: NITROGLYCERIN0.4 MG PO (08:47)
== END 2019-11-01 17:34 | disposition home or self-care (01) | DRG 190 ==
PROVIDERS: Emergency Medicine; Nurse Practitioner Family; ADMIT Internal Medicine
PROC: 0D20XUZ Change Feeding Device in Upper Intestinal Tract, External Approach (ICD-10-PCS; principal; 2019-10-30)
DX: J43.9 Emphysema, unspecified (principal); J18.9 Pneumonia, unspecified organism; E46 Unspecified protein-calorie malnutrition; Z68.1 Body mass index [BMI] 19.9 or less, adult; K94.23 Gastrostomy malfunction; I10 Essential (primary) hypertension; E78.5 Hyperlipidemia, unspecified; I25.10 Atherosclerotic heart disease of native coronary artery without angina pectoris; I71.4 Abdominal aortic aneurysm, without rupture; G47.00 Insomnia, unspecified; R13.10 Dysphagia, unspecified; M19.90 Unspecified osteoarthritis, unspecified site; F41.1 Generalized anxiety disorder; F31.9 Bipolar disorder, unspecified; F17.210 Nicotine dependence, cigarettes, uncomplicated; M62.59 Muscle wasting and atrophy, not elsewhere classified, multiple sites; R09.1 Pleurisy; R09.02 Hypoxemia; B19.20 Unspecified viral hepatitis C without hepatic coma; Y83.3 Surgical operation with formation of external stoma as the cause of abnormal reaction of the patient, or of later complication, without mention of misadventure at the time of the procedure; Z87.01 Personal history of pneumonia (recurrent); Z86.711 Personal history of pulmonary embolism; Z90.49 Acquired absence of other specified parts of digestive tract; Z91.11 Patient's noncompliance with dietary regimen; Z85.819 Personal history of malignant neoplasm of unspecified site of lip, oral cavity, and pharynx
CPT/HCPCS: G0378; J1650

== ENCOUNTER 2019-11-29 | Emergency (ER) | payer MEDICARE ==
[2020-08-03] MEDS ORDERED: ASPIRIN ADULT L81 M2 PO (08:46)
[2020-08-03] MEDS ORDERED: NITROGLYCERIN0.4 MG PO (08:47)
== END 2019-11-29 15:15 | disposition home or self-care (01) ==
PROC: 0DH63UZ Insertion of Feeding Device into Stomach, Percutaneous Approach (ICD-10-PCS; principal; 2019-11-29)
DX: Z43.1 Encounter for attention to gastrostomy (principal); I11.0 Hypertensive heart disease with heart failure; I50.9 Heart failure, unspecified; I25.2 Old myocardial infarction; Z85.810 Personal history of malignant neoplasm of tongue; Z90.49 Acquired absence of other specified parts of digestive tract

== ENCOUNTER 2020-05-17 13:23 | Inpatient (IN) | payer MEDICARE ==
[~2020-05-17] VITALS: Ht 185.4 cm; Wt 47.4 kg
--- NOTE | 2020-05-17 13:31 | NUR ---
PATEINT TO ROOM VIA EMS AND PHYSICIAN NOTIFIED OF PATIENT STATUS
[2020-05-17 14:02] LABS: HEMATOCRIT 40.2 % (39.0-50.0); HEMOGLOBIN 13.4 g/dl (14.0-18.0); IMMATURE GRANULOCYTES 1.6 % (0.0-5.0); MEAN CELL VOLUME 91.4 fL CALC (80.0-100.0); MEAN CORPUSCULAR HGB 30.5 pG CALC (26.0-32.0); MEAN CORPUSCULAR HGB CONC 33.3 g/dL CAL (32.0-36.0); NEUT# 14.21 thou/uL (1.82-7.42); RED BLOOD COUNT 4.4 mill/uL (4.70-6.10); RED CELL DISTRI WIDTH 13.2 % (11.5-15.5)
[2020-05-17 14:05] LABS: GFR > 60 ML/MIN (>=60 (CALC)); GFR FOR AFR.AMER. > 60 ML/MIN (>=60 (CALC))
--- NOTE | 2020-05-17 14:10 | NUR ---
PT MEDICATED PER MAR FOR ABD PAIN RATING 10/10; PT ADVISED OF CONTINUED WAIT TIME AND POC; DENIES ANY OTHER NEEDS AT THIS TIME; WILL CONTINUE TO MONITOR
[2020-05-17 15:09] LABS: ALKALINE PHOSPHATASE 89 u/l (38-126); BUN 28 mg/dL (8-23); BUN/CREATININE RATIO 43 (12-20 (CALC)); CARBON DIOXIDE 28 mmol/l (22-30); CHLORIDE 97 mmol/l (95-108); CREATININE 0.7 mg/dL (0.7-1.3); GFR > 60 ML/MIN (>=60 (CALC)); GFR FOR AFR.AMER. > 60 ML/MIN (>=60 (CALC)); LIPASE 289 u/l (23-300); POTASSIUM 4.2 mmol/l (3.5-5.1); SGOT/AST 37 u/l (19-48)
--- NOTE | 2020-05-17 15:10 | NUR ---
PT RESTING ON STRETCHER; NO S/S OF DISTRESS NOTED; VSS; PT ADVISED OF CONTINUED WAIT TIME; WILL CONTINUE TO MONITOR
[2020-05-17 15:17] LABS: ALBUMIN 3.3 g/dL (3.2-5.0); ANION GAP 8 (6-22 (CALC)); BILIRUBIN, TOTAL 0.8 mg/dL (0.0-1.4); SODIUM 129 mmol/l (137-146); TOTAL PROTEIN 6.8 g/dL (6.3-8.2)
[2020-05-17 15:21] LABS: C-REACTIVE PROTEIN > 27.0 mg/dL (0-0.9)
--- NOTE | 2020-05-17 16:10 | NUR ---
PT RESTING ON STRETCHER; DENIES ANY COMPLAINTS AT THIS TIME; VSS; MONITORING DEVICES IN PLACE; VSS; WILL CONTINUE TO MONITOR
[2020-05-17] MEDS ORDERED: TRELEGY ELLIPTA1 AER (16:54)
--- NOTE | 2020-05-17 17:04 | NUR ---
PT RESTING ON STRETCHER; NO S/S OF DISTRESS NOTED; MONITORING DEVICES IN PLACE; IVF AND IV ABX INFUSING PER MAR; ADVISED OF CONTINUED WAIT TIME FOR ADMISSION; VSS; WILL CONTINUE TO MONITOR
--- NOTE | 2020-05-17 17:15 | NUR ---
REPORT CALLED TO WILLY ESPARZA
--- NOTE | 2020-05-17 18:00 | NUR ---
PT SITTING UP ON STRETCHER; ADVISED OF CONTINUED WAIT TIME FOR ADMISSION; DENIES ANY NEEDS AT THIS TIME; WILL CONTINUE TO MONITOR
--- NOTE | 2020-05-17 18:25 | NUR ---
PT TO ICU ROOM 8 VIA STRETCHER ACCOMPANIED BY ER NURSE. PT TRANSFERRED SELF TO BED WITH MINIMAL ASSISTANCE. PT ORIENTED TO ROOM AND UNIT. CALL LIGHT IN REACH. WILL CONTINUE TO MONTIOR.
--- NOTE | 2020-05-17 18:28 | NUR ---
Admission Note Report Given to: WILLY ESPARZA Transported by: Wheelchair X Stretcher Transported with: X Nurse Transporter X Patent IV X O2 X Trapper Animal Location: X ICU MS2
[2020-05-17 18:30] VITALS: BP 118/70
[2020-05-17 18:45] VITALS: BP 103/53
[2020-05-17 19:00] VITALS: BP 97/57
[2020-05-17 19:15] VITALS: BP 95/74
--- NOTE | 2020-05-17 19:15 | NUR ---
awake. denies c/o. admission assessment complete. o2 cont per nc. claims adjuster crop shows sinus rhythm hr 88. #20 rac saline lock. ivf began as ordered. history obtained per pt, er & old record. oriented to room. fall & air/contact precautions cont.
[2020-05-17 20:00] VITALS: BP 98/53
[2020-05-17 22:00] VITALS: BP 96/56
--- NOTE | 2020-05-17 22:00 | NUR ---
eyes closed. no distress. potline monitor shows sinus rhythm pacs pvcs hr 70.
[2020-05-18] VITALS (11 sets, daily range): BP systolic 93–109; BP diastolic 56–64
--- NOTE | 2020-05-18 00:01 | NUR ---
eyes closed. no distress. monitor tech shows sinus rhythm pacs pvvcs hr 62.
--- NOTE | 2020-05-18 02:00 | NUR ---
resting quietly. resps even & unlabored. no apparent distress. o2 cont.
--- NOTE | 2020-05-18 04:00 | NUR ---
eyes closed. no distress. cardiac rehab nurse shows sinus rhythm pacs pvcs hr 60
--- NOTE | 2020-05-18 05:40 | NUR ---
c/o pain. medicated as ordered.
--- NOTE | 2020-05-18 06:00 | NUR ---
urine spec collected & sent to lab.
[2020-05-18 06:01] LABS: URINE BILIRUBIN - DIPSTICK NEGATIVE (NEGATIVE); URINE BLOOD DIPSTICK NEGATIVE (NEGATIVE); URINE COLOR YELLOW; URINE GLUCOSE - DIPSTICK NEGATIVE (NEGATIVE); URINE KETONE NEGATIVE (NEGATIVE); URINE LEUK ESTERASE NEGATIVE (NEGATIVE); URINE NITRITE - DIPSTICK NEGATIVE (Negative); URINE PROTEIN - DIPSTICK TRACE mg/dL (NEG-TRACE); URINE UROBILINOGEN - DIPSTICK 0.2 E.U./dL (0.2)
--- NOTE | 2020-05-18 06:15 | NUR ---
REPORT RECEIVED FROM NIKKI. CARE ASSUMED.
--- NOTE | 2020-05-18 06:45 | NUR ---
PT RESTING IN BED AWAKE. PT IS ALERT AND ORIENTED X3. SHIFT ASSESSMENT COMPLETED AT THIS TIME. IV PATENT X2. CALL LIGHT IN REACH. WILL CONTINUE TO MONITOR.
--- NOTE | 2020-05-18 08:20 | NUR ---
DR CHRISTINE AT BEDSIDE AT THIS TIME
--- NOTE | 2020-05-18 09:00 | NUR ---
PT RESTING IN BED AWAKE. [facility] CALLED REQUESTED INFORMATION. PT GAVE VERBAL OK TO CALL GRANDSON GIVE CODE AND ALL INFORMATION. WILL CALL AND UPDATE.
--- NOTE | 2020-05-18 10:00 | NUR ---
PT RESTING IN BED. RESP ARE EVEN AND UNLABORED. NO DISTRESS NOTED. CALL LIGHT IN REACH. WILL CONTINUE TO MONITOR.
--- NOTE | 2020-05-18 12:00 | NUR ---
PT FERCHO CALLED WITH CODE, UPDATE GIVEN.
--- NOTE | 2020-05-18 12:15 | NUR ---
PT PROVIDED NOON MEAL. PT TOLERATING MEAL WELL. WILL CONTINUE TO MONITOR.
--- NOTE | 2020-05-18 12:30 | NUR ---
DR CHRISTINE AT BEDSIDE AT THIS TIME.
--- NOTE | 2020-05-18 13:47 | NUR ---
500ML NS BOLUS GIVEN AT THIS TIME.
--- NOTE | 2020-05-18 14:00 | NUR ---
DR QUISPE AT BEDSIDE AT THIS TIME. PEG TUBE REMOVED AND DRESSING PLACED BY DR QUISPE. PT TOLERATED WELL.
--- NOTE | 2020-05-18 14:53 | NUR ---
IV site discontinued, cath intact. No edema , no redness, voices no discomfort.
--- NOTE | 2020-05-18 15:37 | NUR ---
PHONED DR CHRISTINE FOR PAIN MEDICATION ORDERS
--- NOTE | 2020-05-18 16:12 | NUR ---
PT RESTING IN BED AWAKE AND WATCHING TV. RESP ARE EVEN AND UNLABORED. NO DISTRESS NOTED. CALL LGITH IN REACH. WILL CONTINUE TO MONITOR
--- NOTE | 2020-05-18 18:09 | NUR ---
PT SITTING UP EATING DINNER. RESP ARE EVEN AND UNLABORED. NO DISTRESS NOTED. CALL LIGHT IN REACH. WILL CONTINUE TO MONITOR.
--- NOTE | 2020-05-18 19:45 | NUR ---
awake. c/o leaking from peg tube site. brown liquid draining from site. admits "i drank a lot of water today." dressing changed. #20 rac ns infusing @ 100cchr. po fluids taken well. voids per urinal. fall & air/contact precautions cont.
--- NOTE | 2020-05-18 20:15 | NUR ---
abd dsg changed.
--- NOTE | 2020-05-18 21:00 | NUR ---
abg dsg changed.
--- NOTE | 2020-05-18 22:00 | NUR ---
watching tv. nad. air sampling and monitoring shows sinus rhythm pacs pvcs hr 62.
[2020-05-19] VITALS (16 sets, daily range): BP systolic 104–148; BP diastolic 55–79
--- NOTE | 2020-05-19 00:01 | NUR ---
watching tv. no c/o voiced. po fluids taken well.
--- NOTE | 2020-05-19 02:00 | NUR ---
eyes closed. nad. monitoring analyst shows sinus chris pacs pvcs hr 58.
--- NOTE | 2020-05-19 04:00 | NUR ---
resting quietly. resps even & unlabored. no apparent distress.
--- NOTE | 2020-05-19 05:15 | NUR ---
lab here. blood drawn.
[2020-05-19 05:53] LABS: MEAN CELL VOLUME 93.6 fL CALC (80.0-100.0); MEAN CORPUSCULAR HGB 30.1 pG CALC (26.0-32.0); MEAN CORPUSCULAR HGB CONC 32.1 g/dL CAL (32.0-36.0); RED BLOOD COUNT 3.59 mill/uL (4.70-6.10); RED CELL DISTRI WIDTH 13.1 % (11.5-15.5)
[2020-05-19 06:03] LABS: HEMATOCRIT 33.6 % (39.0-50.0); HEMOGLOBIN 10.8 g/dl (14.0-18.0)
[2020-05-19 06:17] LABS: BUN 33 mg/dL (8-23); BUN/CREATININE RATIO 54 (12-20 (CALC)); CARBON DIOXIDE 27 mmol/l (22-30); CHLORIDE 105 mmol/l (95-108); CREATININE 0.6 mg/dL (0.7-1.3); GFR > 60 ML/MIN (>=60 (CALC)); GFR FOR AFR.AMER. > 60 ML/MIN (>=60 (CALC)); MAGNESIUM 2.3 mg/dL (1.6-2.3); POTASSIUM 3.6 mmol/l (3.5-5.1)
[2020-05-19 06:41] LABS: ANION GAP 8 (6-22 (CALC)); SODIUM 136 mmol/l (137-146)
--- NOTE | 2020-05-19 08:00 | NUR ---
PT IS AWAKE, ALERT, ORIENTED X 3. LUNGS WHEEZY PER COPD AND COUGHING, USES 2 LPM NC. DRESSING NOTED TO OLD PEG SITE, CHANGED PER DRAINAGE. IVF DOWN TO 10 ML/HR PER DR CHRISTINE.
--- NOTE | 2020-05-19 12:37 | NUR ---
PT AT REST IN THE BED, NO DISTRESS NOTED. PT PROVIDED LORTAB EARLIER FOR RIGHT CHEST PAIN, STATES WENT FROM 9 TO 4.
--- NOTE | 2020-05-19 14:45 | NUR ---
PT AMBULATED TO BR, BED CHANGED AND NEW GOWN APPLIED. PT WITH PRODUCTIVE COUGH THAT HELPS CLEAR PHLEGM.
--- NOTE | 2020-05-19 17:05 | NUR ---
PT CONTINUES BEFORE WITH PRODUCTIVE COUGH, DID NOT WANT BREATHING TX. VT X 14 BEATS EARLIER THIS AFTERNOON, DR CHRISTINE AWARE, NO NEW ORDERS.
--- NOTE | 2020-05-19 20:30 | NUR ---
PT WATCHING TV; ASSESSMENT COMPLETED; PT A/O X3; O2 2L VIA NC, EXERTIONAL SOB, PRODUCTIVE COUGH; IVF INFUSING WITHOUT DIFFICULTY; PT VOIDS IN URINAL WELL; ENCOURGE USE OF CALL LIGHT IF ANY ASSISTANCE IS NEEDED; WILL CONTINUE TO MONITOR.
--- NOTE | 2020-05-19 21:10 | NUR ---
PT MEDICATED FOR C/O BACK PAIN AND ABD PAIN 03/31; PT PROVIDED SNACK AT THIS TIME; CALL ADKINS WITHIN REACH; WILL CONTINUE TO MONITOR.
--- NOTE | 2020-05-19 23:19 | NUR ---
PT IN SEMI BROWN POSITION WATCHING TV; NO COMPLAINTS OR CONCERNS VOICED AT THIS TIME; PT OBSERVED COUNTING MONEY IN WALLET; ENCOURAGE PT TO PLACE WALLET IN SAFE; PT AGREEABLE; CONTENTS OF WALLET VERIFIED WITH PT AND ITEM SENT TO SAFE; CALL ADKINS WITHIN REACH; WILL CONTINUE TO MONITOR.
[2020-05-20] VITALS (9 sets, daily range): BP systolic 131–150; BP diastolic 61–77
--- NOTE | 2020-05-20 02:44 | NUR ---
PT UP REQUESTING SNACKS, PROVIDED; NO COMPLAINTS VOICED AT THIS TIME; CALL ADKINS WITHIN REACH; WILL CONTINUE TO MONITOR
--- NOTE | 2020-05-20 05:03 | NUR ---
PT RESTING WITH EYES CLOSED; NO S/SX OF DISTRESS NOTED; CALL ADKINS WITHIN REACH; WILL CONTINUE TO MONITOR.
--- NOTE | 2020-05-20 06:45 | NUR ---
REPORT RECEIVED FROM EVELYNE AGUILERA. CARE ASSUMED.
--- NOTE | 2020-05-20 06:45 | NUR ---
REPORT RECEIVED FROM EVELYNE AGUILERA. CARE ASSUMED.
--- NOTE | 2020-05-20 07:50 | NUR ---
PT RESTING IN BED AWAKE. PT IS ALERT AND ORIENTED X3. SHIFT ASSESSMENT COMPLETED AT THIS TIME. IV PATENT X1. CALL LIGHT IN REACH. WILL CONTINUE TO MONITOR.
--- NOTE | 2020-05-20 07:50 | NUR ---
RT AT BEDSIDE FOR CARMEN TREAMENT
--- NOTE | 2020-05-20 07:58 | NUR ---
DR CHRISTINE AT BEDSIDE AT THIS TIME.
--- NOTE | 2020-05-20 08:30 | NUR ---
DRESSING TO ABDOMEN CHANGED. PT TOLERATED WELL.
--- NOTE | 2020-05-20 10:00 | NUR ---
PT RESTING IN BED WATCHING TV. RESP ARE EVEN AND UNLABORED. NO DSITRESS NOTED. CALL LIGHT IN REACH. WILL CONTINUE TO MONITOR.
--- NOTE | 2020-05-20 12:00 | NUR ---
PT SET UP WITH NOON MEAL AT THIS TIME. CALL LIGHT IN REACH. WILL CONTINUE TO MONITOR
--- NOTE | 2020-05-20 12:55 | NUR ---
DR QUISPE AT BEDSIDE AT THIS TIME
--- NOTE | 2020-05-20 14:27 | NUR ---
PT SITTING UP IN BED WATCHING TV. RESP ARE EVEN AND UNLABORED VSS ON MONITOR. PT VOICED NO COMPLAINTS AT THIS TIME. CALL LIGHT IN REACH. WILL CONTINUE TO MONIOTOR.
--- NOTE | 2020-05-20 15:59 | NUR ---
PT SITTING UP IN BED TALKING ON PHONE. RESP ARE EVEN AND UNLABORED. NO DSITRESS NOTED. CALL LIGHT IN REACH. WILL CONTINUE TO MONITOR.
--- NOTE | 2020-05-20 17:00 | NUR ---
REPORT CALLED TO ABDIEL AGUILERA.
--- NOTE | 2020-05-20 17:15 | NUR ---
PT TO [facility] VIA WHEELCHAIR ACCOMPANIED BY STAMPING BENCH DIE MAKER. ALL BELONGINGS SENT WITH PATIENT.
--- NOTE | 2020-05-20 17:47 | NUR ---
PT ARRIVES TO MED/SURG VIA WHEELCHAIR FROM ICU ACCOMPANIED BY AUBRIE MEJIA. PT DID REQUIRE INHALERS UPON ARRIVAL TO FLOOR, BUT HAS SINCE SETTLED DOWN AND IS NOT PANICKING. DRESSING TO ABDOMEN CHANGED UPON ARRIVAL, DRAINAGE SEEN BLOODY. MEAL TRAY ARRIVES FROM ICU, PT EATING NOW. NO ACUTE DISTRESS. PT AWARE OF NEGATIVE COVID RESULT.
--- NOTE | 2020-05-20 21:15 | NUR ---
PT RESTING IN BED, WATCHING TV, NO APPARENT DISTRESS, RESPIRATIONS REGULAR AND UNLABORED. PHYSICAL ASSESMENT COMPLETE. PT REPORTS EXERTIONAL SOB BUT IN NO DISTRESS WHILE AT REST. SCHEDULED MEDS ADMINISTERED, PRN LORTAB ADMINISTERED FOR ABD PAIN REPORTEDLY 07/01. SEE E-MAR. DRESSING OVER OLD PEG TUBE SITE REMOVED, ABD PAD PULLED BACK TO REVEAL STACK OF 4X4 SATURATED W/ SANGUINOUS DRAINAGE. 4X4s REMOVED AND REVEALS CLOTS UNDERNEATH. SLIGHT "BUBBLING" FROM SITE GAS ESCAPES. AREA CLEANSED AND PREPPED WITH SKIN BARRIER WIPES OSTOMY APPLIANCE PLACED OVER SITE TO BETTER MANAGE AND MONITOR DRAINAGE. PT REPORTS OSTOMY APPLIANCE MORE COMFORTABLE DRAINAGE WAS "BURNING HIS SKIN" WITH PREVIOUS DRESSING. 250ML CLEAR YELLOW URINE EMPTIED FROM BEDSIDE URINAL. PT DENIES ANY NEEDS @ THIS TIME. PERSONAL ITEMS WITHIN REACH, BED LOCKED IN LOW POSITION WITH BEDRAILS UP X2. CALL ADKINS WITHIN REACH, AGREES TO CALL PRN. REACH
--- NOTE | 2020-05-21 00:20 | NUR ---
SCHEDULED ZOSYN ADMINISTERED, SEE E-MAR. SNACK PROVIDED PER PTS REQUEST. DRAINAGE FROM OLD PEG TUBE SITE ASSESED. MODERATE AMOUNT OF SANGUINOUS DRAINAGE W/ CLOTS IN OSTOMY BAG. OSTOMY APPLAINCE REMAINS INTACT AND DRAINING.
[2020-05-21 04:38] VITALS: BP 134/66
--- NOTE | 2020-05-21 05:22 | NUR ---
MEDICATED FOR C/O ABD PAIN 07/01 WITH PRN LORTAB. SEE E-MAR. OSTOMY APPLIANCE OVER OLD PEG SITE REMAINS INTACT WITH SMALL AMOUNT SANGUINOUS DRAINAGE WITH CLOTS.
[2020-05-21 07:56] VITALS: BP 128/71
--- NOTE | 2020-05-21 07:56 | NUR ---
REPORT RECEIVED FROM WILLY YU. PT SITTING UP IN BED HIGH FOWLERS; ALERT AND ORIENTED. DENIES PAIN. RESPIRATIONS LABORED WITH MILD EXERTION ON 4L OXYGEN VIA NC; 32 RPM; COURSE/WHEEZE LUNG SOUNDS. LOOSE NON PRODUCTIVE COUGH. 2+ PEDAL EDEMA. COLOSTOMY BAG INTACT TO PEG TUBE REMOVAL SITE WITH LARGE AMOUNT OF BLOODY DRAINAGE. BAG AND DUODERM REMOVED AND SITE CLEANSED WITH NORMAL SALINE AND GAUZE. EXCORIATION NOTED TO SURROUNDING SKIN; DRY DRESSING APPLIED. VSS. PLAN OF CARE REVIEWED. PT ENCOURAGED TO VERBALIZE CONCERNS. STATES UNDERSTANDING. SAFETY MEASURES IN PLACE. CALL LIGHT WITHIN REACH.
[2020-05-21 09:46] LABS: HEMATOCRIT 34.4 % (39.0-50.0); HEMOGLOBIN 11.2 g/dl (14.0-18.0); IMMATURE GRANULOCYTES 2.5 % (0.0-5.0); MEAN CELL VOLUME 93.5 fL CALC (80.0-100.0); MEAN CORPUSCULAR HGB 30.4 pG CALC (26.0-32.0); MEAN CORPUSCULAR HGB CONC 32.6 g/dL CAL (32.0-36.0); NEUT# 6.84 thou/uL (1.82-7.42); RED BLOOD COUNT 3.68 mill/uL (4.70-6.10); RED CELL DISTRI WIDTH 12.8 % (11.5-15.5)
--- NOTE | 2020-05-21 10:56 | NUR ---
PT SHOWERED WITH OXYGEN IN PLACE AND ABDOMINAL DRESSING COVERED. ONCE REPOSITIONED BACK INTO BED DRESSING QUICKLY BECAME SATURATED WITH BLOODY DRAINAGE, THROUGH GOWN AND ONTO BLANKETS. DRESSING REPLACED ALONG WITH LINEN. IN BETWEEN DRESSINGS OPEN SITE ACTIVELY BLEEDING WITH BUBBLING NOISES NOTED. WILL CONTINUE TO MONITOR. OXYGEN TITRATED DOWN TO 3L VIA NC.
--- NOTE | 2020-05-21 12:55 | NUR ---
DR. CHRISTINE NOTIFIED OF COPIOUS AMOUNTS OF BLOODY DRAINAGE FROM OPEN AREA ON ABDOMEN. NEW ORDERS RECEIVED. DRESSING CHANGED AGAIN. PT PLEASANT AND COOPERATIVE.
[2020-05-21 15:00] VITALS: BP 130/63
--- NOTE | 2020-05-21 15:20 | NUR ---
LAST DRESSING PLACED TO ABDOMEN HAS REMAINED CDI; DRAINAGE HAS SLOWED DOWN. PT VOIDING CLEAR YELLOW URINE IN URINAL. CONDITION IS STABLE.
--- NOTE | 2020-05-21 18:17 | NUR ---
PT SITTING UP FOR DINNER WITH PUREE REGULAR DIET. PT HAS PERSISTENT COUGH WHILE EATING; ENCOURAGED TO EAT SLOWLY AND TAKE FREQUENT SIPS OF WATER. DRESSING TO ABDOMEN REMAINS CDI. ZOSYN INFUSING AT THIS TIME. NO REQUESTS OR CONCERNS. CALL LIGHT WITHIN REACH.
[2020-05-21 18:48] LABS: HEMOGLOBIN 12.5 g/dl (14.0-18.0)
[2020-05-21 19:15] VITALS: BP 122/64
--- NOTE | 2020-05-21 20:50 | NUR ---
PT RESTING IN BED, WATCHING TV, NO APPARENT DISTRESS, RESPIRATIONS REGULAR AND UNLABORED. PHYSICAL ASSESMENT COMPLETE. PT REPORTS EXERTIONAL SOB BUT IN NO DISTRESS WHILE AT REST. SCHEDULED MEDS ADMINISTERED, PRN LORTAB ADMINISTERED FOR ABD PAIN REPORTEDLY 05/31. SEE E-MAR. DRESSING OVER OLD PEG TUBE SITE CLEAN, DRY AND INTACT. WILL CONTINUE TO MONITOR FOR DRAINAGE/LEAK. 400ML CLEAR YELLOW URINE EMPTIED FROM BEDSIDE URINAL. PT DENIES ANY NEEDS @ THIS TIME. PLAN OF CARE REVIEWED, PT VERBALIZES UNDERSTANDING AND DENIES QUESTIONS. PERSONAL ITEMS WITHIN REACH, BED LOCKED IN LOW POSITION WITH BEDRAILS UP X2. CALL ADKINS WITHIN REACH, AGREES TO CALL PRN.
--- NOTE | 2020-05-22 00:40 | NUR ---
PT APPEARS TO BE SLEEPING COMFORTABLY. RESPIRATIONS REGULAR AND UNLABORED. PERSONAL ITEMS REMAIN WITHIN REACH. BED REMAINS LOCKED IN LOW POSITION W/ BEDRAILS UP X2. CALL ADKINS REMAINS WITHIN REACH.
[2020-05-22 01:08] LABS: HEMATOCRIT 33.3 % (39.0-50.0)
[2020-05-22 04:06] VITALS: BP 135/70
--- NOTE | 2020-05-22 05:24 | NUR ---
PT APPEARS TO BE SLEEPING COMFORTABLY. RESPIRATIONS REGULAR AND UNLABORED. PERSONAL ITEMS REMAIN WITHIN REACH. BED REMAINS LOCKED IN LOW POSITION W/ BEDRAILS UP X2 AND BED ALARM ON. CALL ADKINS REMAINS WITHIN REACH.
[2020-05-22 06:32] LABS: HEMATOCRIT 34.3 % (39.0-50.0); HEMOGLOBIN 11.3 g/dl (14.0-18.0)
[2020-05-22 08:24] VITALS: BP 120/67
--- NOTE | 2020-05-22 08:28 | NUR ---
PT IS A&O X3. PT STATED PAIN IN ABD. MEDICATED PT WITH LORTAB. LUNGS SOUND/WHEEZES. O2 AT 3L VIA NC. ABD DRESSING CDI. SAFETY PRECAUTIONS REINFORCED AND CALL LIGHT IN REACH.
--- NOTE | 2020-05-22 13:33 | NUR ---
CHANGE ABD DRESSSING IT HAS MODERATED GREEN DRAINAGE NOTED. PT TOLERATED WELL. PT DENIES ANY OTHER NEEDS AT THIS TIME. CALL LIGHT IN REACH.
[2020-05-22 15:00] VITALS: BP 132/68
--- NOTE | 2020-05-22 16:15 | NUR ---
PT IS TALKING IN HIS CELL PHONE WITH NO S/S OF DISTRESS NOTED. PT STATED HE HAD A BM. PT DENIES ANY NEEDS AT THIS TIME. CALL LIGHT IN REACH.
[2020-05-22 18:50] VITALS: BP 128/74
--- NOTE | 2020-05-22 19:00 | NUR ---
REPORT RECEIVED FROM Rohit DUPONT RN, CARE OF PT ASSUMED AT THIS TIME.
--- NOTE | 2020-05-22 19:25 | NUR ---
RECEIVED CALL FROM PTS DAUGHTER DANIELLE FLANAGAN , DAUGHTER PROVIDED 4 DIGIT COMMUNICATION CODE. UPDATES ON PTS STATUS PROVIDED. DAUGHTER VOICES CONCERN ABOUT PTS RISK FOR ASPIRATION. WILL ENDORSE TO ONCOMING NURSE AND PROVIDER, CONSIDER ST EVAL.
--- NOTE | 2020-05-22 20:30 | NUR ---
PT RESTING IN BED, APPERS COMFORTABLE AND IN NO APPARENT DISTRESS. RESPIRATIONS REGULAR AND UNLABORED. PHYSICAL ASSESMENT COMPLETE. SCHEDULED MEDICATION ADMINISTERED. PRN LORTAB ADMINISTERED PER PTS REQUEST FOR C/O ABD PAIN 05/31. SNACK PROVIDED PER PTS REQUEST. 400ML CLEAR YELLOW URINE EMPTIED FROM BEDSIDE URINAL. PT DENIES FURTHER NEEDS AT THIS TIME. PLAN OF CARE REVIEWED, PT VERBALIZES UNDERSTANDING AND DENIES QUESTIONS. PERSONAL ITEMS WITHIN REACH. BED LOCKED IN LOW POSITION W/ BEDRAILS UP X2. CALL ADKINS WITHIN REACH, AGREES TO CALL PRN.
--- NOTE | 2020-05-22 20:40 | NUR ---
RT FARZANEH IN ROOM TO ADMINISTER NEB TX PER PTS REQUEST, SEE E-MAR.
--- NOTE | 2020-05-23 00:40 | NUR ---
DRESSING TO OLD PEG TUBE SITE SATURATED AND PT C/O IRRITATION TO SURRONDING SKIN. DRESSING REMOVED. MODERATE AMOUNT OF WHAT IS PRESUMABLY GASTRIC CONTENT NOTED TO SOILED DRESSING. NO BLOOD OR CLOTS NOTED. AREA CLEANSED GENTLY AND PATTED DRY. SURRONDING SKIN SLIGHTLY RED AND INTACT. SURRONDING SKIN PREPPED WITH LIBERAL AMOUNT OF SKIN-PREP WIPES. OSTOMY APPLIANCE APPLIED OVER PUNCTURE SITE TO BETTER MANAGE AND OBSERVE DRAINAGE WELL MAINTAIN SKIN INTEGRITY AND MAKE PT MORE COMFORTABLE.
[2020-05-23 03:40] VITALS: BP 122/63
--- NOTE | 2020-05-23 04:35 | NUR ---
BACK TENDER CYLINDER GREG AT BEDSIDE DRAWING PTS AM LABS.
[2020-05-23 05:38] LABS: HEMATOCRIT 36.3 % (39.0-50.0); HEMOGLOBIN 11.6 g/dl (14.0-18.0); MEAN CORPUSCULAR HGB 30.1 pG CALC (26.0-32.0); RED BLOOD COUNT 3.86 mill/uL (4.70-6.10); RED CELL DISTRI WIDTH 13.1 % (11.5-15.5)
[2020-05-23 05:45] LABS: ANION GAP 9 (6-22 (CALC)); BUN 34 mg/dL (8-23); BUN/CREATININE RATIO 49 (12-20 (CALC)); CARBON DIOXIDE 28 mmol/l (22-30); CHLORIDE 100 mmol/l (95-108); CREATININE 0.7 mg/dL (0.7-1.3); GFR > 60 ML/MIN (>=60 (CALC)); GFR FOR AFR.AMER. > 60 ML/MIN (>=60 (CALC)); SODIUM 132 mmol/l (137-146)
--- NOTE | 2020-05-23 05:45 | NUR ---
PT RESTING IN BED. APPEARS COMFORTABLE AND IN NO DISTRESS. RESPIRATIONS REGULAR AND UNLABORED.PHYSICAL ASSESEMNT REMAINS UNCHANGED FROM BEGINIING OF SHIFT BASELINE ASSESMENT. PERSONAL ITEMS REMAIN WITHIN REACH. CALL ADKINS REMAINS WITHIN REACH. BED REMAINS LOCKED IN LOW POSITION WITH BEDRAILS UP X2.
[2020-05-23 05:51] LABS: POTASSIUM 4.6 mmol/l (3.5-5.1)
[2020-05-23 07:42] VITALS: BP 127/70
--- NOTE | 2020-05-23 07:44 | NUR ---
ASSESSMENT DONE. PT IS A&O X3. PT STATED PAIN IN ABD. MEDICATED PT WITH LORTAB. LUNGS SOUND/WHEEZES. O2 AT 3L VIA NC. IVF INFUSING WELL. PT DENIES ANY OTHER NEEDS AT THIS TIME. CALL LIGHT IN REACH.
--- NOTE | 2020-05-23 12:06 | NUR ---
PT IS EATING HIS LUNCH. PT DENIES NEEDS AT THIS TIME. CALL LIGHT IN REACH.
[2020-05-23 15:00] VITALS: BP 112/61
--- NOTE | 2020-05-23 16:15 | NUR ---
PT IS SITTING IN THE SIDE OF THE BED USING HIS CELL PHONE . OSTMOY IN PLACE WHERE THE OLD PEG TUBE WAS REMOVE. MODERATED DE LA TORRE DRAINAGE NOTED. PT DENIES ANY NEEDS AT THIS TIME. CALL LIGHT IN REACH.
[2020-05-23 18:35] VITALS: BP 111/67
--- NOTE | 2020-05-23 20:00 | NUR ---
PHYSICAL ASSESMENT COMPLETE. CALL ADKINS WITHIN REACH, AGREES TO CALL PRN.
--- NOTE | 2020-05-24 01:00 | NUR ---
PT APPEARS TO BE SLEEPING COMFORTABLY, RESPIRATIONS REGULAR AND UNLABORED. NO APPARENT DISTRESS. CALL ADKINS REMIANS WITHIN REACH.
--- NOTE | 2020-05-24 02:58 | NUR ---
PT APPEARS TO BE SLEEPING COMFORTABLY, RESPIRATIONS REGULAR AND UNLABORED. NO APPARENT DISTRESS. CALL ADKINS REMIANS WITHIN REACH.
[2020-05-24 03:45] VITALS: BP 98/58
--- NOTE | 2020-05-24 08:00 | NUR ---
REPORT RECEIVED FROM WILLY YU. PT SITTING UP IN BED TALKING ON CELL PHONE; ALERT AND ORIENTED. DENIES PAIN. RESPIRAITONS EVEN AND UNLABORED ON OXYGEN 3L VIA NC; SPO2 96%; OXYGEN TITRATED DOWN TO 2L; WILL CONTINUE TO MONITOR. NO SOB REPORTED. DR. CHRISTINE AT BEDSIDE TO EVALUATE. PEG TUBE REMOVAL SITE WITH LARGE AMOUNT OF GASTRIC CONTENT OUTPUT; DRAINAGE COLLECTED INTO COLOSTOMY BAG APPLIED BY PRACTICE OR STUDENT TEACHER. NEW ORDERS TO CONSULT DR GIL FOR GENERAL SURGERY. PEDAL EDEMA HAS IMPROVED. IV FLUIDS INFUSING AT KVO; IV SITE APPEARS HEALTHY. PLAN OF CARE REVIEWED. PT ENCOURAGED TO VERBALIZE CONCERNS. STATES UNDERSTANDING. SAFETY MEASURES IN PLACE. CALL LIGHT WITHIN REACH.
--- NOTE | 2020-05-24 08:30 | NUR ---
LOUISE ESTRADA CALLED TO ANSWERING SERVICE; SPOKE WITH LUKE.
--- NOTE | 2020-05-24 13:12 | NUR ---
FAMILY UPDATED VIA PHONE; QUESTIONS ANSWERED TO SATISFACTION. PT UPDTAED ON NPO STATUS AND SURGEON CONSULT.
--- NOTE | 2020-05-24 14:30 | NUR ---
DR. GIL AT BEDSIDE FOR EVAL. COLOSTOMY WAFTER AND BAG REMOVED FOR VISUALIZATION. MD REPORTS TO PT THAT HE RECOMMENDS NO SURGICAL INTERVENTION AT THIS TIME UNTIL SITE HAS MORE TIME TO HEAL. ALSO RECOMMENDS REMAINING NPO FOR ANOTHER 2 DAYS TO PROMOTE HEALING AND LESS DRAINAGE. PT UPSET AND VERBALIZES DISAGREEMENT WITH DIET PLAN. DIET LEFT UP TO PT DISCRETION DUE TO INCREASED DRAINAGE. CREAM APPLIED TO EXCORIATED SKIN SURROUNDING SITE AND DRY GAUZE APPLIED. WILL CONTINUE TO MONITOR.
[2020-05-24 15:05] VITALS: BP 115/59
--- NOTE | 2020-05-24 18:00 | NUR ---
PEG TUBE SITE HAS SCANT DRAINAGE SINCE PT BECAME NPO. PT ENCOURAGED TO REMAIN NPO LONG HE CAN TOLERATE TO DECREASE DRAINAGE AMOUNT AND PROMOTE HEALING. ALTHOUGH AGITATED PT AGREES TO TRY. ZOSYN INFUSING AT THIS TIME. CALL LIGHT WITHIN REACH.
[2020-05-24 18:45] VITALS: BP 105/60
[2020-05-25 04:00] VITALS: BP 100/56
[2020-05-25 07:35] VITALS: BP 93/56
--- NOTE | 2020-05-25 07:35 | NUR ---
ASSESSMENT IS COMPLTED: IV SITE IS FREE FROM REDNESS OR EDEMA. HR IS REG,PULSES ARE STRONG X4, ABD IS SOFT WITH ACTIVE BS. BREATH SOUNDS ARE CLEAR,BILATERALLY., O2 2 1 LITER WITH NC. SCANT AMOUNT OF DRAINAGE NOTED FROM PEG TUBE AREA
--- NOTE | 2020-05-25 10:15 | NUR ---
PT TRANSPORTED TO [facility] VIA FOR PICC PLACEMENT. RETURNED AT 1105 VIA WITH PICC IN [facility].
[2020-05-25 11:49] LABS: MEAN CELL VOLUME 93.8 fL CALC (80.0-100.0); MEAN CORPUSCULAR HGB 30.4 pG CALC (26.0-32.0); MEAN CORPUSCULAR HGB CONC 32.4 g/dL CAL (32.0-36.0); NEUT# 8.52 thou/uL (1.82-7.42); RED BLOOD COUNT 4.64 mill/uL (4.70-6.10); RED CELL DISTRI WIDTH 14.1 % (11.5-15.5)
[2020-05-25 11:50] LABS: HEMATOCRIT 43.5 % (39.0-50.0); HEMOGLOBIN 14.1 g/dl (14.0-18.0); IMMATURE GRANULOCYTES 9.2 % (0.0-5.0)
[2020-05-25 12:28] LABS: ALBUMIN 3.4 g/dL (3.2-5.0); CHOLESTEROL HDL RATIO 4.6 (<4.4 (CALC)); MAGNESIUM 2.6 mg/dL (1.6-2.3)
--- NOTE | 2020-05-25 12:30 | NUR ---
PT IS RELAXING IN BED WITH NO DISTRESS NOTED. IV SITE IS FREE FROM REDNESS OR EDEMA.
--- NOTE | 2020-05-25 12:49 | NUR ---
SPEAKING WITH FAMILY. INFORMED ABOUT THE PICC LINE. IV SITE IS FREE FROM REDNESS OR EDEAM.
--- NOTE | 2020-05-25 13:24 | NUR ---
PLACED A DRESSING ON ABD WHERE PEG TUBE SITE IS SMALL AMOUNT OF GASTRIC JUICES AND REDNESS AROUND THE AREA. PLACED CREAM AND ALSO COVERED WITH PAD. ALSO PLACED A PAD ON HIS BUTTOCKS C/O REDNESS AND TENDERNESS.
[2020-05-25 14:30] VITALS: BP 109/65
--- NOTE | 2020-05-25 16:40 | NUR ---
PT IS RELAXING IN BED WITH NO DISTRESS NOTED. IV SITE IS FREE FROM REDNESS OR EDEMA. C/O WANTING TO EAT
--- NOTE | 2020-05-25 17:42 | NUR ---
DR GIL IN TO VISIT WITH PT. EXPLAINED THAT IT NEEDS.TO CLOSE SO NO FOOD OR DRINK. PT HAS BEEN STARTED ON TPN.
[2020-05-25 19:00] VITALS: BP 116/67
--- NOTE | 2020-05-25 21:07 | NUR ---
RESIDENT ALERT AND ORIENTED. RESTING IN BED ON CELL PHONE. TPN AND NS RUNNING WELL. DRESSING TO ABD CLEAN/DRY. PHYSICAL ASSESSMENT COMPLETED. REMINDED RESIDENT TO USE CALL ADKINS TO CALL FOR ASSISTANCE, PT VERBALLY STATES UNDERSTANDING.
[2020-05-26 03:48] VITALS: BP 116/64
--- NOTE | 2020-05-26 05:15 | NUR ---
PT SLEEPING WELL, EASILY AWAKEN WHEN ADM IV THERAPY. PT REQUESTED ANOTHER BLANKET, STATESHE WAS COLD.
[2020-05-26 05:47] LABS: HEMATOCRIT 39.2 % (39.0-50.0); HEMOGLOBIN 12.6 g/dl (14.0-18.0); MEAN CELL VOLUME 93.3 fL CALC (80.0-100.0); MEAN CORPUSCULAR HGB CONC 32.1 g/dL CAL (32.0-36.0); RED BLOOD COUNT 4.2 mill/uL (4.70-6.10); RED CELL DISTRI WIDTH 13.8 % (11.5-15.5)
[2020-05-26 06:13] LABS: ALBUMIN 3.1 g/dL (3.2-5.0); ALKALINE PHOSPHATASE 80 u/l (38-126); ANION GAP 9 (6-22 (CALC)); BILIRUBIN, TOTAL 0.7 mg/dL (0.0-1.4); BUN 31 mg/dL (8-23); BUN/CREATININE RATIO 43 (12-20 (CALC)); CARBON DIOXIDE 27 mmol/l (22-30); CHLORIDE 101 mmol/l (95-108); CREATININE 0.7 mg/dL (0.7-1.3); GFR > 60 ML/MIN (>=60 (CALC)); GFR FOR AFR.AMER. > 60 ML/MIN (>=60 (CALC)); POTASSIUM 4.4 mmol/l (3.5-5.1); SGOT/AST 33 u/l (19-48); SODIUM 132 mmol/l (137-146); TOTAL PROTEIN 6.1 g/dL (6.3-8.2)
[2020-05-26 08:30] VITALS: BP 108/58
--- NOTE | 2020-05-26 08:30 | NUR ---
ASSESSMENT IS COMPLETED" IV SITE IS FREE FROM REDNESS OR EDEMA. HR IS REG,PULSES ARE STRONG X4, ABD IS SOFT WITH ACTIVE BS. CORBIN PICC IN PLACE AND FLUSHES WELL. DRESSING ON OLD PEG SITE IS CDI.
--- NOTE | 2020-05-26 12:30 | NUR ---
PT IS RELAXING IN BED WITH NO DISTRESS NOTED. IV SITE IS FREE FROM REDNESS OR EDEMA.
--- NOTE | 2020-05-26 14:08 | NUR ---
TPN AND LIPIDS ARE GOING INFUSING WELL. NO DISTRESS NOTED. PT INSIST ON WANTING TO EAT.
[2020-05-26 15:19] VITALS: BP 125/76
--- NOTE | 2020-05-26 16:30 | NUR ---
PT IS TALKING WITH FAMILY ON THE PHONE NO DISTRESS NOTED. IV SITE IS FREE FROM REDNESS OR EDEMA. TOELRATING LIPIDS AND TPN WELL.
[2020-05-26 19:00] VITALS: BP 134/68
[2020-05-27 03:00] VITALS: BP 101/61
--- NOTE | 2020-05-27 05:33 | NUR ---
CONTINUES TPN @84ML/HR AND TOLERATING WELL; COMPLETED LIPIDS @ 30ML/HR @ 2430; CONTINUES IV ZOSYN FOR WOUND TO ABD; NO S/S A/R NOTED; DRAINAGE TO WOUND DECREASED; VOICED PAIN IN NECK AND ABD 03/31, RECEIVED iv mORPHINE REQUESTED AND VOICED EFFECTIVE; PATIENT WAS ANGRY SAYING HE NEEDS PAIN MEDS; NURSE EXPLAINED WHAT MEDICATION HE HAD ORDERED AND EXPLAINED HOW TO REQUEST IT IN THE FUTURE; MEDICATION EFFECTIVE; PATIENT SMILED AND VOICED PAIN 12/01; RESTLESS MOST THE NIGHT; NO SOB OR COUGH NOTED THIS SHIFT; URINATING A LOT OF CLEAR, YELLOW URINE, BUT VOICED NO PAIN OR DIFFICULTY; INT TO RIGHT WRIST SHOWS NO S/S INFECTION; PICC LINE TO CORBIN SHOWS NO S/S INFECTION; BOTH ARE FLUSHING WELL AND TPN AND ABT RUNNING WELL; CALL ADKINS IN REACH.
[2020-05-27 07:45] VITALS: BP 131/66
--- NOTE | 2020-05-27 07:45 | NUR ---
ASSESSMENT IS COMPLETED: IV SITE IS FREE FROM REDNESS OR EDEMA. HR IS REG,PULSES ARE STRONG X4, ABD IS SOFT WITH ACTIVE BS. BREATH SOUNDS ARE CLEAR,BILATERALLY, NO C/O SOB. DRESSING ON ABD HAS SOME GASTRIC DRAINAGE NOTED. CHANGED THE DRESSING WITH SMALL SALVE ON THE SITE DUE TO EXCORIATION.
--- NOTE | 2020-05-27 12:30 | NUR ---
PT IS RELAXING IN BED WITH NO DISTRESS NOTED. IV SITE IS FREE FROM REDNESS OR EDEMA.
[2020-05-27 12:46] LABS: HEMATOCRIT 41.7 % (39.0-50.0); HEMOGLOBIN 13.8 g/dl (14.0-18.0); MEAN CELL VOLUME 92.7 fL CALC (80.0-100.0); MEAN CORPUSCULAR HGB 30.7 pG CALC (26.0-32.0); MEAN CORPUSCULAR HGB CONC 33.1 g/dL CAL (32.0-36.0); RED BLOOD COUNT 4.5 mill/uL (4.70-6.10); RED CELL DISTRI WIDTH 13.9 % (11.5-15.5)
[2020-05-27 12:50] LABS: ALBUMIN 3.3 g/dL (3.2-5.0); ALKALINE PHOSPHATASE 83 u/l (38-126); BUN 28 mg/dL (8-23); BUN/CREATININE RATIO 43 (12-20 (CALC)); CHLORIDE 104 mmol/l (95-108); CREATININE 0.7 mg/dL (0.7-1.3); GFR > 60 ML/MIN (>=60 (CALC)); GFR FOR AFR.AMER. > 60 ML/MIN (>=60 (CALC)); MAGNESIUM 2.2 mg/dL (1.6-2.3); POTASSIUM 4.3 mmol/l (3.5-5.1); SGOT/AST 47 u/l (19-48); SODIUM 133 mmol/l (137-146); TOTAL PROTEIN 6.6 g/dL (6.3-8.2)
[2020-05-27 12:53] LABS: ANION GAP 12 (6-22 (CALC)); BILIRUBIN, TOTAL 1.2 mg/dL (0.0-1.4); CARBON DIOXIDE 21 mmol/l (22-30)
--- NOTE | 2020-05-27 16:15 | NUR ---
PT IS RELAXING IN BED WITH NO DISTRESS NOTED. IV SITE IS FREE FROM REDNESS OR EDEMA/.
[2020-05-27 17:26] VITALS: BP 99/63
--- NOTE | 2020-05-27 19:00 | NUR ---
REPORT RECEIVED FROM Babar MORALES LPN, CARE OF PT ASSUMED AT THIS TIME.
[2020-05-27 19:02] VITALS: BP 106/60
--- NOTE | 2020-05-27 20:56 | NUR ---
PT RESTING IN BED, WATCHING TV, APPEARS COMFORTABLE AND IN DISTRESS, RESPIRATIONS REGULLAR AND UNLABORED. PHYSICAL ASSESSMENT COMPLETE. PT PROVIDED WITH ICE CHIPS FOR COMFORT. MEDICATED WITH PRN ATIVAN AND PRN MORPHINE PER HIS REQUEST FOR C/O ANXIETY AND BACK AND NECK PAIN, REPORTEDLY 07/31. SEE E-MAR. PT DENIES FURTHER NEEDS AT THIS TIME. PLAN OF CARE REVIEWED, PT DENIES QUESTIONS/ VARBALIZES UNDERSTANDING.PERSONAL ITEMS WITHIN REACH. BED LOCKED IN LOW POSITION W/ BEDRAILS UP X2. CALL ADKINS WITHIN REACH, AGREES TO CALL PRN.
--- NOTE | 2020-05-28 00:10 | NUR ---
SCHEDULED IV ZOSYN ADMINISTERED, SEE E-MAR. PT DENIES NEEDS AT THIS TIME. DENIES PAIN. CALL ADKINS REMAINS WITHIN REACH, AGREES TO CALL PRN.
--- NOTE | 2020-05-28 01:00 | NUR ---
PT APPEARS TO BE SLEEPING COMFORTABLY, NO APPARENT DISTRESS, RESPIRATIONS REGULAR AND UNLABORED. ITEMS REMAIN WITHIN REACH, BED REMAINS LOCKED IN LOW POSITION W/ BEDRAILS UP X2. CALL ADKINS REMAINS WITHIN REACH.
--- NOTE | 2020-05-28 02:46 | NUR ---
SCHEDULED TPN ADMINISTERED WITH NEW FILTERED TUBING, SEE E-MAR. PT DENIES NEEDS AT THIS TIME. DENIES PAIN. CALL ADKINS REMAINS WITHIN REACH, AGREES TO CALL PRN.
[2020-05-28 03:38] VITALS: BP 101/66
[2020-05-28 04:52] VITALS: BP 117/71
--- NOTE | 2020-05-28 04:53 | NUR ---
STEAM PRESS TENDER IN ROOM TO DRAW LABS.
--- NOTE | 2020-05-28 05:44 | NUR ---
SCHEDULED ZOSYN ADMINISTERED, SEE E-MAR. PT RESTING COMFORTABLY, WATCHING TV. DENIES FURTHER NEEDS AT THIS TIME. CALL ADKINS WITHIN REACH, AGREES TO CALL PRN.
[2020-05-28 05:49] LABS: HEMATOCRIT 38.8 % (39.0-50.0); HEMOGLOBIN 12.7 g/dl (14.0-18.0); MEAN CORPUSCULAR HGB 30.5 pG CALC (26.0-32.0); MEAN CORPUSCULAR HGB CONC 32.7 g/dL CAL (32.0-36.0); RED BLOOD COUNT 4.17 mill/uL (4.70-6.10); RED CELL DISTRI WIDTH 13.6 % (11.5-15.5)
[2020-05-28 06:14] LABS: ALBUMIN 3.2 g/dL (3.2-5.0); ALKALINE PHOSPHATASE 77 u/l (38-126); ANION GAP 9 (6-22 (CALC)); BILIRUBIN, TOTAL 1.5 mg/dL (0.0-1.4); BUN 27 mg/dL (8-23); BUN/CREATININE RATIO 41 (12-20 (CALC)); CARBON DIOXIDE 24 mmol/l (22-30); CHLORIDE 105 mmol/l (95-108); CREATININE 0.7 mg/dL (0.7-1.3); GFR > 60 ML/MIN (>=60 (CALC)); GFR FOR AFR.AMER. > 60 ML/MIN (>=60 (CALC)); POTASSIUM 4.1 mmol/l (3.5-5.1); SGOT/AST 43 u/l (19-48); SODIUM 133 mmol/l (137-146); TOTAL PROTEIN 6.2 g/dL (6.3-8.2)
[2020-05-28 09:51] VITALS: BP 111/61
--- NOTE | 2020-05-28 09:54 | NUR ---
RECIEVED REPORT FROM WILLY YU . PT RESITNG IN SEMI FOWLERS POSTIION UPON ENTERING ROOM. INTRODUCED SELF TO PT AND DISCUSSED POC. ASSESSMENT AND VITALS COMPLETED AT THIS TIME. RESPIRATIONS ARE EVEN AND UNLABORED WITH NO SIGNS OF DISTRESS. HEART RHYTHM IS NORMAL. BOWEL SOUNDS ARE HYPOACTIVE. RADIAL AND PEDAL PUSLES ARE STRONG WITH NORMAL REFILL. SKIN IS WARM AND DRY WITH NO BREAKDOWN. PT HAD PEG TUB REMOVED 05/17/20. PT CURRENTLY ON TPN RUNNING AT 85ML ORDERED IN SINGLE LUMEN PICC IN RIGHT ARM. SITE IS HEALTHY AND PATENT. #22G IN RFA RUNNING WITH NS @10 ML ORDERED, SITE APPEARS HEALTHY AND PATENT. PT DENIES ANY PAIN OR DISCOMFORTS AT THIS TIME.ALL SAFETY PRECAUTIONS ARE IN PLACE WITH CALL LIGTH IN REACH. WILL CONTINUE TO MONITOR
[2020-05-28 10:15] LABS: ANION GAP 9 (6-22 (CALC)); BUN 28 mg/dL (8-23); BUN/CREATININE RATIO 41 (12-20 (CALC)); CARBON DIOXIDE 23 mmol/l (22-30); CHLORIDE 105 mmol/l (95-108); CREATININE 0.7 mg/dL (0.7-1.3); GFR > 60 ML/MIN (>=60 (CALC)); GFR FOR AFR.AMER. > 60 ML/MIN (>=60 (CALC)); MAGNESIUM 2.2 mg/dL (1.6-2.3); POTASSIUM 3.8 mmol/l (3.5-5.1); SODIUM 134 mmol/l (137-146)
--- NOTE | 2020-05-28 12:40 | NUR ---
DR CHRISTINE AT BEDSIDE DISCUSSSING POC WITH PT
[2020-05-28 15:10] VITALS: BP 106/63
--- NOTE | 2020-05-28 15:31 | NUR ---
PT COMPLAINS OF 9/10 HEAD AND BACK PAIN. MORPHINE ADMINISTERED. RESPIRATIONS ARE EVEN AND UNLBAORED WITH NO SIGNS OF DISTRESS. ALL SAFETY PRECAUTIONS ARE IN PLACE WITH CALL LIGHT IN REACH. WILL CONTINUE TO MONITOR
--- NOTE | 2020-05-28 17:11 | NUR ---
REASSESSMENT OF PAIN AT THIS TIME RESULTING IN 03/31. RESPIRATIONS ARE EVEN AND UNLABORED WITH NO SIGNS OF DISTRESS.ALL SAFETY PRECAUTIONS ARE IN PLACE WITH CALL LIGHT IN REACH
[2020-05-28 19:15] VITALS: BP 109/63
--- NOTE | 2020-05-28 20:26 | NUR ---
PT IN BED AWAKE TALKING ON CELL PHONE. IV LINES FLUSED AND RUNNING WELL.
[2020-05-29 04:00] VITALS: BP 96/61
[2020-05-29 06:13] LABS: ANION GAP 9 (6-22 (CALC)); BUN 27 mg/dL (8-23); BUN/CREATININE RATIO 40 (12-20 (CALC)); CARBON DIOXIDE 25 mmol/l (22-30); CHLORIDE 105 mmol/l (95-108); CREATININE 0.7 mg/dL (0.7-1.3); GFR > 60 ML/MIN (>=60 (CALC)); GFR FOR AFR.AMER. > 60 ML/MIN (>=60 (CALC)); MAGNESIUM 2.2 mg/dL (1.6-2.3); POTASSIUM 3.9 mmol/l (3.5-5.1); SODIUM 135 mmol/l (137-146)
--- NOTE | 2020-05-29 06:16 | NUR ---
PT RESTING WELL IN MADE EASILY AWAKEN WHEN ENTERING ROOM.
[2020-05-29 09:00] VITALS: BP 100/61
[2020-05-29 15:11] VITALS: BP 109/60
--- NOTE | 2020-05-29 15:39 | NUR ---
PT IS ALERT AND ORIENTED X 4 AND ABLE TO MAKE NEEDS KNOWN. SKIN WARM TO TOUCH. HEARING AND VISION ADEQUATE. MEDICATIONS GIVEN AND TOLERATED WELL.REQUESTED ATIVAN FOR ANXIETY AND EFFECTIVE. MD IN TO SEE PT AND PT TO REMAIN IN TPN THERAPY. DRESSING TO ABDOMEN INTACT AND DRAINING GREENISH COLORED DRAINAGE WITH NO ODOR NOTED. PT IS CONTINENT OF B/B AND USES URINAL WITH NO COMPLICATIONS. PT STATED HE HAD BOWEL MOVEMENT YESTERDAY. PT HAS HYPOACTIVE BOWEL SOUNDS IN UPPER ABD QUADRANTS. RIGHT UPPER PICC AND #22 g IN RFA FLUSHING WITH NO COMPLICATIONS AND DRESSING INTACT. ATTEMPTED TO DO ORAL CARE WITH PT AND HE STATED THAT HE HATES TO DO ORAL SWABS AND WILL DO HIS OWN MOUTH CARE. LIP BALM GIVEN FOR DRY LIPS.NO S/S OF HYPO/HYPERGLYCEMIA. PT REMAINS NPO STATUS. VITALS ARE STABLE. WILL CONTINUE TO OBSERVE. CALL LIGHT WITHIN REACH.
--- NOTE | 2020-05-29 17:35 | NUR ---
PT WAS MEDICATED FOR PAIN TO BACK AND NECK AT 10 ON SCALE OF 1-10 WITH 10 GREATEST. TPN CONTINUES TO RUN AT 84ML/HR AND TOLERATED WELL. HOB ELEVATD AND CALL LIGT WITHIN REACH. WILL CONTINUE TO OBSERVE.
[2020-05-29 19:23] VITALS: BP 114/75
--- NOTE | 2020-05-29 20:25 | NUR ---
PT AWAKE IN BED. NO S/S OF ANXIETY. PT STATES HE FEELS ALOT BETTER THAN YESTERDAY AND EXCITED HE WILL BE ABLE TO EAT TOMORROW. PERSONAL ITEMS AT BEDSIDE ON TABLE. CALLBELL WITHIN EASY REACH.
[2020-05-30 00:16] VITALS: BP 111/64
[2020-05-30 04:10] VITALS: BP 108/63
--- NOTE | 2020-05-30 04:32 | NUR ---
PT RESTING WELL IN BED WITH LIGHTS ON. STATES 0/10 PAIN AT THIS TIME. EASILY AWAKENS WHEN ENTERING ROOM. wILL CONTINUE TO MONITOR FOR ANY NEW CHANGES IN CONDITION.
[2020-05-30 05:26] LABS: HEMATOCRIT 37.7 % (39.0-50.0); HEMOGLOBIN 12.3 g/dl (14.0-18.0); MEAN CELL VOLUME 93.3 fL CALC (80.0-100.0); MEAN CORPUSCULAR HGB 30.4 pG CALC (26.0-32.0); MEAN CORPUSCULAR HGB CONC 32.6 g/dL CAL (32.0-36.0); RED BLOOD COUNT 4.04 mill/uL (4.70-6.10); RED CELL DISTRI WIDTH 13.6 % (11.5-15.5)
[2020-05-30 05:43] LABS: ALBUMIN 3.1 g/dL (3.2-5.0); ALKALINE PHOSPHATASE 81 u/l (38-126); ANION GAP 8 (6-22 (CALC)); BILIRUBIN, TOTAL 1.3 mg/dL (0.0-1.4); BUN 30 mg/dL (8-23); BUN/CREATININE RATIO 44 (12-20 (CALC)); CARBON DIOXIDE 23 mmol/l (22-30); CHLORIDE 106 mmol/l (95-108); CREATININE 0.7 mg/dL (0.7-1.3); GFR > 60 ML/MIN (>=60 (CALC)); GFR FOR AFR.AMER. > 60 ML/MIN (>=60 (CALC)); MAGNESIUM 2.1 mg/dL (1.6-2.3); POTASSIUM 3.6 mmol/l (3.5-5.1); SGOT/AST 40 u/l (19-48); SODIUM 133 mmol/l (137-146); TOTAL PROTEIN 6.1 g/dL (6.3-8.2)
--- NOTE | 2020-05-30 07:18 | NUR ---
RECEIVED REPORT FROM SILVIO. PT IN BED WITH EYES OPEN AND ABLE TO MAKE NEEDS KNOWN. CALL LIGHT WITHIN REACH.
--- NOTE | 2020-05-30 08:56 | NUR ---
PT IN BED WITH EYES OPEN AND ABLE TO MAKE NEEDS KNOWN. SKIN WARM TOTOUCH. MEDICATIONS GIVEN AND TOLERATED WELL. SURGEON IN TO SEE PT AND UPGRADED DIET TO CLEAR LIQUIDS DIET. DENIES PAIN AND ANXIETY. CONTINUES ON NORMAL SALINE AT 10ML/HR AND ALSO CONTINUES TPN AT 84ML/HR AND TOLERATING WELL. DRESSING INTACT TO BILAT IV SITES. CONTINENT OF B/B AND USES URINAL. URINE PIPER IN COLOR. RESPIRATION ARE EVEN AND NON LABORED. CALL LIGHT IS WITHIN REACH. WILL CONTINUE TO OBSERVE.
[2020-05-30 15:05] VITALS: BP 116/66
[2020-05-30 19:00] VITALS: BP 115/66
--- NOTE | 2020-05-30 19:09 | NUR ---
pt was on clear liquid diet and shortly after taking in liquids pt had drainage from peg site. new order for NPO at midnight for EGD in am. pt made aware of procedure and awaiting orders for consent. pt was medicated for pain and anxiety and effective.
--- NOTE | 2020-05-30 20:05 | NUR ---
PT RESTING IN BED, ALERT AND ORIENTED. RESPIRATIONS EVEN AND UNLABORED ON O2 @ 2L VIA NC. LUNGS SOUND DIMINISHED. PEDAL PULSES STRONG. PT REPORTS HAVING GENERALIZED PAIN RATING IT A 10/10. PT TO BE MEDICATED PER EMAR ORDERS. SAFETY PRECAUTIONS IN PLACE. WILL CONTINUE TO MONTIOR.
--- NOTE | 2020-05-31 00:04 | NUR ---
PT RESTING IN BED, NO S/S OF DISTRESS AT THIS TIME. SAFETY PRECAUTIONS IN PLACE. WILL CONTINUE TO MONITOR.
[2020-05-31 04:00] VITALS: BP 110/49
--- NOTE | 2020-05-31 04:03 | NUR ---
PT RESTING IN BED. NO S/S OF DISTRESS AT THIS TIME.
[2020-05-31 07:13] LABS: HEMATOCRIT 35.6 % (39.0-50.0); HEMOGLOBIN 11.5 g/dl (14.0-18.0); IMMATURE GRANULOCYTES 1.5 % (0.0-5.0); MEAN CELL VOLUME 93.7 fL CALC (80.0-100.0); MEAN CORPUSCULAR HGB 30.3 pG CALC (26.0-32.0); MEAN CORPUSCULAR HGB CONC 32.3 g/dL CAL (32.0-36.0); NEUT# 5.07 thou/uL (1.82-7.42); RED BLOOD COUNT 3.8 mill/uL (4.70-6.10); RED CELL DISTRI WIDTH 13.8 % (11.5-15.5)
[2020-05-31 07:40] LABS: CHOLESTEROL HDL RATIO 5.9 (<4.4 (CALC))
[2020-05-31 07:43] LABS: ANION GAP 8 (6-22 (CALC)); BUN 26 mg/dL (8-23); BUN/CREATININE RATIO 39 (12-20 (CALC)); CARBON DIOXIDE 23 mmol/l (22-30); CHLORIDE 107 mmol/l (95-108); CREATININE 0.7 mg/dL (0.7-1.3); GFR > 60 ML/MIN (>=60 (CALC)); GFR FOR AFR.AMER. > 60 ML/MIN (>=60 (CALC)); MAGNESIUM 2.1 mg/dL (1.6-2.3); POTASSIUM 3.9 mmol/l (3.5-5.1); SODIUM 135 mmol/l (137-146)
--- NOTE | 2020-05-31 09:30 | NUR ---
PT IS ALERT AND ORIENTED AND ABLE TO MAKE NEEDS KNOWN. SKIN WARM TO TOUCH. MEDICATIONS GIVEN AND TOLERATED WELL. RESPIRATIONS ARE EVEN AND NON LABORED. NO COUGH NOTED. TPN CONTINUES AT 84ML/HR AND TOLERATING WELL. PT IS CONTINENT OF B/B AND USES URINAL WITH DARK YELLOW COLORED URINE. PT STATES HE HAS NOT HAD A BM SINCE YESTERDAY. DENIES ABDOMINAL DISCOMFORT. DRESSING INTACT TO ABDOMEN AND NO DRAINAGE NOTED. PICTURE TAKEN OF ABDOMINAL SURGICAL AREA. CALL LIGHT WITHIN REACH. WILL CONTINUE TO OBSERVE.
[2020-05-31 09:38] VITALS: BP 104/52
--- NOTE | 2020-05-31 11:34 | NUR ---
PT note Patient is screened fofr possible PT intervention. I went ahead and spoke with him to see if he had functional difficulties and he tells me he is getting up and down without difficulty and no LOB. His only difficulty is dyspnea which is long standing- no needs at this time
[2020-05-31 15:00] VITALS: BP 112/61
[2020-05-31 19:05] VITALS: BP 118/63
--- NOTE | 2020-05-31 19:45 | NUR ---
PT RESTING IN BED, NO SIGNS OF DISTRESS NOTED, RESP EVEN AND UNLABORED. PT ALERT AND ORIENTED X3, DISCUSSED POC, PT HAS DRESSING TO ABD FROM PEG TUBE REMOVAL, DRESSING CDI. LIPIDS INFUSING, ASSESSMENT COMPLETED, CALL LIGHT IN REACH,CONTINUE TO MONITOR.
--- NOTE | 2020-05-31 19:48 | NUR ---
PT IN BED WITH EYES OPEN. ABLE TO MAKE NEEDS KNOWN. PT WILL HAVE SURGERY IN AM FOR CLOSURE OF PEGSITE. PT AWARE OF PROCEDURE. IN BED WITHH EYES OPEN WITH NO COMPLAINTS OR CONCERNS NOTED. WILL CONTINUE TO OBSERVE
[2020-06-01] VITALS (11 sets, daily range): BP systolic 93–117; BP diastolic 41–79
--- NOTE | 2020-06-01 | NUR ---
PT RESTING IN BED, WITH EYES CLOSED, NO SIGNS OF DISTRESS NOTED, RESP EVEN AND UNLABORED. CALL LIGHT IN REACH,CONTINUE TO MONITOR.
--- NOTE | 2020-06-01 04:10 | NUR ---
PT RESTING IN BED, NO SIGNS OF DISTRESS NOTED, RESP EVEN AND UNLABORED. PT WATCHING TV, DISCUSSED LAB DRAW FROM PICC LINE, PT TOLERATED WELL, CALL LIGHT IN REACH,CONTINUE TO MONITOR.
[2020-06-01 06:16] LABS: ANION GAP 8 (6-22 (CALC)); BUN 24 mg/dL (8-23); BUN/CREATININE RATIO 44 (12-20 (CALC)); CARBON DIOXIDE 26 mmol/l (22-30); CHLORIDE 105 mmol/l (95-108); CREATININE 0.5 mg/dL (0.7-1.3); GFR > 60 ML/MIN (>=60 (CALC)); GFR FOR AFR.AMER. > 60 ML/MIN (>=60 (CALC)); MAGNESIUM 2.1 mg/dL (1.6-2.3); POTASSIUM 3.7 mmol/l (3.5-5.1); SODIUM 135 mmol/l (137-146)
--- NOTE | 2020-06-01 07:05 | NUR ---
REPORT RECEIVED FROM HAMMAD APARICIO;PT APPEARS TO BE SLEEPING IN SUPINE POSITION;NO S/S OF DISTRESS NOTED;RESPIRATIONS EVEN AND UNLABORED ON O2 @2L VIA NC;NS AND TPN INFUSING WITH EASE;ALL SAFETY PRECAUTIONS IN PLACE WITH BED IN THE LOWEST POSITION AND CALL LIGHT IN REACH;WILL CONTINUE TO MONITOR
--- NOTE | 2020-06-01 07:49 | NUR ---
PT RESTING IN SEMI FOWLERS POSITION,A&O X3;VS OBTAINED AND ASSESSMENT COMPLETED;PT DENIES ANY CURRENT PAIN OR DISCOMFORTS,PAIN SCALE AND REPORTING EDUCATED;RESPIRATIONS EVEN AND UNLABORED ON O2 @ 2L VIA NC, DIMINISHED LUNG SOUNDS;NON-PRODUCTIVE COUGH NOTED AT TIMES;ABDOMEN DISTENDED/SOFT ON PALPATION AND HYPOACTIVE IN ALL 4 QUADRANTS;DRESSING TO ABD CDI AT OLD PEG TUBE SITE;STRONG PEDAL PULSES;SKIN INTACT;CORBIN PICCLINE INFUSING TPN WITH EASE PER ORDER, #22G TO RFA INFUSING NS @ KVO PER ORDER,BOTH SITES APPEAR HEALTHY;ACCUCHECK 104, NO COVERAGE NEEDED;PT REMAINS NPO FOR OR TODAY;PT DENIES ANY ADDITIONAL NEEDS AT THIS TIME AND IS ENCOURAGED TO CALL FOR ASSISTANCE IF NEEDED;FALL PRECAUTIONS IN PLACE WITH CALL LIGHT IN REACH;WILL CONTINUE TO MONITOR
--- NOTE | 2020-06-01 08:37 | NUR ---
PT TRANSPORTED TO OR IN STABLE CONDITION VIA STRETCHER ACCOMPANIED BY WILLY RÍOS.
--- NOTE | 2020-06-01 10:56 | NUR ---
PT ARRIVED BACK TO MED/SURG ROOM 270 IN STABLE CONDITION VIA STRETCHER ACCOMPANIED BY BOSTON,RN;PT RE-POSITIONED SELF INTO HOSPITAL BED;PT A&O X3,RE-ORIENTED TO ROOM AND CALL LIGHT SYSTEM;RESPIRATIONS EVEN AND UNLABORED ON O2 @ 2L VIA NC;PT DENIES ANY CURRENT PAIN OR NEEDS,PAIN SCALE AND REPORTING EDUCATED;DRESSING TO ABD CDI WITH HYPOACTIVE BOWEL SOUNDS;#22G TO RFA REMAINS PATENT INFUSING NS @KVO, CORBIN PICCLINE CONTINUES TO INFUSE TPN PER ORDER;VS OBTAINED BY ROBERTO PRATER;ORDERS FOR CLEAR LIQUID DIET OBTAINED AND PT VERBALIZES UNDERSTANDING;PT DENIES ANY ADDITIONAL NEEDS AT THIS TIME AND IS ENCOURAGED TO CALL FOR ASSISTANCE IF NEEDED;CALL LIGHT IN REACH;WILL CONTINUE TO MONITOR
--- NOTE | 2020-06-01 11:35 | NUR ---
PT RESTING IN SEMI FOWLERS POSITION ON HIS PHONE;RESPIRATIONS REMAIN EVEN AND UNLABORED ON O2 @ 2L VIA NC;DRESSING TO ABD CDI AND IV FLUIDS CONTINUE TO INFUSE WITH EASE;I.S. PROVIDED AND PT EDUCATED USE, ENCOURAGED TO USE 10X PER HOUR.PT VERBALIZES UNDERSTANDING;SCD'S IN PLACE;WATER PROVIDED PER REQUEST;PT ENCOURAGED TO CALL FOR ASSISTANCE IF NEEDED;CALL LIGHT IN REACH;WILL CONTINUE TO MONITOR
--- NOTE | 2020-06-01 14:00 | NUR ---
PT RESTING IN SEMI FOWLERS POSITION;RESPIRATIONS EVEN AND UNLABORED ON O2 @ 2L VIA NC;PT REPORTS ABDOMINAL PAIN RATING 6/10 ON THE PAIN SCALE AND ANXIETY, PT MEDICATED WITH PRN PERCOCET 5/325MG PO AND ATIVAN 0.5MG IVP AT THIS TIME;IVF INFUSING WITH EASE AND NEW BAG OF TPN HUNG;ABDOMINAL DRESSING REMAINS CDI AFTER BREAKFAST;PT DENIES ANY ADDITIONAL NEEDS AT THIS TIME;ENCOURAGED TO CALL FOR ASSISTANCE IF NEEDED;CALL LIGHT IN REACH;WILL CONTINUE TO MONITOR
--- NOTE | 2020-06-01 16:00 | NUR ---
PT RESTING IN SEMI FOWLERS POSITION;RESPIRATIONS REMAIN EVEN AND UNLABORED ON O2 @ 2L VIA NC;PT REPORTS ABDOMINAL PAIN RATING 10/10 ON THE PAIN SCALE AND REQUESTS PAIN MEDICATION,PT MEDICATED WITH MORPHINE 2MG IVP PER ORDER;IV FLUIDS AND TPN INFUSING WITH EASE;PT DENIES ANY ADDITIONAL NEEDS AT THIS TIME AND IS ENCOURAGED TO CALL FOR ASSISTANCE IF NEEDED;CALL LIGHT IN REACH;WILL CONTINUE TO MONITOR
--- NOTE | 2020-06-01 19:50 | NUR ---
PT RESTING IN BED, NO SIGNS OF DISTRESS NOTED, RESP EVEN AND UNLABORED. PT ALERT AND ORIENTED X3, NO EDEMA. DRESSING TO ABD CDI, SCD'S ON, IS AT BEDSIDE. 02 2L NC, TPN TO PICC LINE IN CORBIN, NS KVO TO IV RFA. ASSESSMENT COMPLETED, CALL LIGHT IN REACH,CONTINUE TO MONITOR.
--- NOTE | 2020-06-01 20:00 | NUR ---
PT C/O PAIN STATES MORPHINE DOES NOT HELP HIS PAIN IT DID YESTERDAY. PT STATES PERCOCET DOES NOT HELP EITHER. CALL MADE TO CEMENT STORAGE WORKER MD, NO NEW ORDERS GIVEN. DISCUSSED WITH PT, PT WILL TAKE MEDICATIONS ON DEC PRESCRIBED. CALL LIGHT IN REACH,CONTINUE TO MONITOR.
--- NOTE | 2020-06-02 | NUR ---
PT RESTING IN BED WITH EYES CLOSED, NO SIGNS OF DISTRESS NOTED, RESP EVEN AND UNLABORED. CALL LIGHT IN REACH,CONTINUE TO MONITOR.
[2020-06-02 00:02] VITALS: BP 105/62
--- NOTE | 2020-06-02 01:46 | NUR ---
PT RESTING IN BED, TPN BAG CHANGED, PT C/O PAIN 10/10 TO ABD, PT MEDICATED FOR PAIN, CALL LIGHT IN REACH,CONTINUE TO MONITOR.
[2020-06-02 04:20] VITALS: BP 101/61
--- NOTE | 2020-06-02 04:33 | NUR ---
PT C/O ABD PAIN, MEDICATED WITH MORPHINE, NO SIGNS OF DISTRESS NOTED, RESP EVEN AND UNLABORED. CALL LIGHT IN REACH,CONTINUE TO MONITOR.
[2020-06-02 06:17] LABS: ANION GAP 8 (6-22 (CALC)); BUN 26 mg/dL (8-23); BUN/CREATININE RATIO 49 (12-20 (CALC)); CARBON DIOXIDE 23 mmol/l (22-30); CHLORIDE 108 mmol/l (95-108); CREATININE 0.5 mg/dL (0.7-1.3); GFR > 60 ML/MIN (>=60 (CALC)); GFR FOR AFR.AMER. > 60 ML/MIN (>=60 (CALC)); MAGNESIUM 1.9 mg/dL (1.6-2.3); SODIUM 135 mmol/l (137-146)
--- NOTE | 2020-06-02 06:38 | NUR ---
PT RESTING IN BED, C/O ABD PAIN, PT MEDICATED PER MAR, CALL LIGHT IN REACH,CONTINUE TO MONITOR.
[2020-06-02 08:02] VITALS: BP 108/70
--- NOTE | 2020-06-02 10:14 | NUR ---
THIS NURSE SPOKE WITH DAUGHTER DANIELLE REGARDING PT PLAN OF DISCHARGE. THIS NURSE NOTIFIED DAUGHTER OF UPGRADE DIET TO MONITOR TOLERANCE BEFORE DISCHARGE. DAUGHTER VERBALIZES UNDERSTANDING AND AGREES WITH POC.
--- NOTE | 2020-06-02 11:02 | NUR ---
UPON ENETERING ROOM PT STATED PAIN 9/10 TO NECK AND BACK. MEDICATED WITH MORPINE PRN. ALERT AND ORIENETED. PT STATES HE IS READY TO EAT SOLID FOODS.
[2020-06-02 11:52] VITALS: BP 102/62
--- NOTE | 2020-06-02 13:29 | NUR ---
PT IN BED IN SITTING POSITION. STATES 10/10 ACHING PAIN TO NECK AND BACK. PT REQUESTING ATIVAN AT THIS TIME.
[2020-06-02 16:41] VITALS: BP 126/77
[2020-06-02 18:54] VITALS: BP 125/74
--- NOTE | 2020-06-02 20:27 | NUR ---
PT RESTING IN BED, ALERT AND ORIENTED. RESPIRATIONS EVEN AND UNLABORED ON O2 @ 2L VIA NC. LUNGS SOUND DIMINISHED. PEDAL PULSES WEAK. PT REPORTS HAVING GENERALIZED PAIN RATING IT A 10/10, PT TO BE MEDICATED PER EMAR ORDERS. SAFETY PRECAUTIONS IN PLACE. WILL CONTINUE TO MONITOR.
--- NOTE | 2020-06-03 00:05 | NUR ---
PT RESTING IN BED, NO S/S OF DISTRESS AT THIS TIME. SAFETY PRECAUTIONS IN PLACE. WILL CONTINUE TO MONITOR.
--- NOTE | 2020-06-03 04:02 | NUR ---
PT RESTING IN BED NO S/S OF DISTRESS AT THIS TIME
[2020-06-03 05:04] VITALS: BP 104/65
[2020-06-03 07:30] VITALS: BP 132/78
[2020-06-03 15:44] VITALS: BP 111/68
--- NOTE | 2020-06-03 17:14 | NUR ---
PT AROUSABLE AND VERBALIZES NEEDS. PAIN 2 OR 3/10. WELL CONTROLLED. NO BM AT THIS TIME. SITE UNREMARKABLE. AMBULATES SHORT DISTANCES. PICC INTACT CALL LIGHT IN REACH.
--- NOTE | 2020-06-03 19:10 | NUR ---
PT AGITATED. PT TO BE MEDICATED PER EMAR ORDERS. RESPIRATIOSN EVEN AND UNLABORED ON RA. LUNGS SOUND DIMINISHED/COARSE. PEDAL PULSES WEAK. PT REPORTS HAVING GENERALIZED PAIN RATING IT A 10/10, PT TO BE MEDICATED PER EMAR ORDERS. SAFETY PRECAUTIONS IN PLACE. WILL CONTINUE TO MONITOR.
[2020-06-03 19:30] VITALS: BP 117/69
--- NOTE | 2020-06-04 00:32 | NUR ---
PT RESTING IN BED, NO S/S OF DISTRESS AT THIS TIME. SAFETY PRECAUTIONS IN PLACE. WILL CONTINUE TO MONITOR.
--- NOTE | 2020-06-04 04:55 | NUR ---
PT RESTING IN BED. PICC DRESSING CHANGED AT THIS TIME. PT TOLERATED WELL. SAFETY PRECAUTIONS IN PLACE. PT MEDICATED PER EMAR ORDERS FOR MODERATE GENERALIZED PAIN. WILL CONTINUE TO MONITOR.
[2020-06-04 06:38] LABS: IMMATURE GRANULOCYTES 0.9 % (0.0-5.0); MEAN CORPUSCULAR HGB 30.7 pG CALC (26.0-32.0); NEUT# 17.1 thou/uL (1.82-7.42); RED CELL DISTRI WIDTH 14.1 % (11.5-15.5)
[2020-06-04 06:46] LABS: BILIRUBIN, TOTAL 1.6 mg/dL (0.0-1.4); BUN 27 mg/dL (8-23); BUN/CREATININE RATIO 41 (12-20 (CALC)); CHLORIDE 102 mmol/l (95-108); CREATININE 0.7 mg/dL (0.7-1.3); GFR > 60 ML/MIN (>=60 (CALC)); GFR FOR AFR.AMER. > 60 ML/MIN (>=60 (CALC)); SGOT/AST 31 u/l (19-48); SODIUM 134 mmol/l (137-146); TOTAL PROTEIN 5.7 g/dL (6.3-8.2)
[2020-06-04 06:47] LABS: ALKALINE PHOSPHATASE 124 u/l (38-126); ANION GAP 8 (6-22 (CALC)); CARBON DIOXIDE 28 mmol/l (22-30)
[2020-06-04 07:45] LABS: RED BLOOD COUNT 3.8 mill/uL (4.70-6.10)
[2020-06-04 07:46] LABS: HEMATOCRIT 35.6 % (39.0-50.0); MEAN CELL VOLUME 93.7 fL CALC (80.0-100.0)
[2020-06-04 07:47] LABS: MEAN CORPUSCULAR HGB CONC 32.9 g/dL CAL (32.0-36.0)
[2020-06-04 07:48] LABS: HEMOGLOBIN 11.7 g/dl (14.0-18.0)
[2020-06-04 08:20] VITALS: BP 116/67
--- NOTE | 2020-06-04 08:20 | NUR ---
ASSESSMENT IS COMPLETED: IV SITE IS FREE FROM REDNESS OR EDEMA. HR IS RE,GPULSES ARE STRONG X4, ABD IS SOFT/ DISTENDED. DRESSING ON ABD IS CDI. O2 @ 2LITERS SATS 100%
--- NOTE | 2020-06-04 08:32 | NUR ---
PER LAB CANCELLED THE TYPE AND SCREEN. DUE TO HGB 11.7. SHOWED RESULTS TO LENNOX AND DR NICKERSON
--- NOTE | 2020-06-04 12:40 | NUR ---
PT HAS BEEN RESTING IN BED WITH NO DISTRESS NOTED. IV SITE IS FREE FROM REDNES OR EDEMA. PT IS SIPPING ON THE MAG CITRATE. ENCOURAGIN TO DRINK SO HE CAN HAVE A BM.
[2020-06-04 16:00] VITALS: BP 118/70
--- NOTE | 2020-06-04 16:50 | NUR ---
PT IS RELAXING IN BED WITH NO DISTRESS NOTED. RECEIVED 200CC OF FLUID FOR AN ENEMA. PLACED ON A BSC. NO SUCCESS.
--- NOTE | 2020-06-04 17:59 | NUR ---
PT BACK IN TO BED, BECAME SOB, DUE TO TAKING O2 OFF. C/O CUTTING BEHIND HIS EARS. C/O BEING COLD. CONTINUE TO OBSERVE AND MONITOR.
[2020-06-04 19:15] VITALS: BP 108/66
--- NOTE | 2020-06-05 00:29 | NUR ---
PT LAYING IN BED, EASILY AWAKENS WHEN ENTERING ROOM. MEDICATED FOR PAIN. PHYSICAL ASSESSMENT COMPLETED.
--- NOTE | 2020-06-05 01:09 | NUR ---
PT RESTING IN BED, EASILY AWAKEN WHEN ENTERING ROOM. DENIES ANY PAIN A THIS TIME. WILL CONTINUE TO MONITOR FOR ANY NEW CHNAGES IN CONDITION.
[2020-06-05 03:31] VITALS: BP 106/65
--- NOTE | 2020-06-05 08:15 | NUR ---
ASSESSMENT IS COMPLETED: IV SITE IS FREE FROM REDNESS OR EDEMA. HR IS REG,PULSES ARE STRONG X4, ABD IS SOFT WITH ACTIVE BS. BREATH SOUNDS ARE CLEAR,BILATERALLY. DRESSING ON ABD IS CDI. PT UNABLE TO MOVE HIS BOWELS. REFUSES THE ENEMA DUE TO NOT WORKING. CONTINUE TO OSEBRVE AND MONITOR.
[2020-06-05 09:00] VITALS: BP 118/65
--- NOTE | 2020-06-05 12:50 | NUR ---
PT IS RELAXING IN BED WITH NO DISTRESS NOTED. IV SITE IS FREE FROM REDNESS OR EDEMA.
--- NOTE | 2020-06-05 16:30 | NUR ---
PT IS RELAXING IN BED WITH NO DISTRESS NOTED. IV SITE IS FREE FROM REDNESS OR EDEMA.
--- NOTE | 2020-06-05 16:36 | NUR ---
PT IS NO LONGER ON TPN ACCU CHECKS HAVE BEEN STOPPED AT PRESENT TIME.
[2020-06-05 17:09] VITALS: BP 112/64
[2020-06-05 18:30] VITALS: BP 103/57
--- NOTE | 2020-06-05 21:14 | NUR ---
PT AWAKE IN BED WATCHING T.V. ALERT AND ORIENTED. PHYSICAL ASSESSMENT COMPLETED. C/O TENDERNESS TO ABD WITH TOUCH. PT STATES PASSING GAS A LOT OF KERRY TODAY. OFFERED MOM WITH PRUNE JUICE TO RESIDENT D/T NO BM IN PAST 72+ HOURS, PT HIGHLY REFUSES AND STATES "HELL NO". WILL CONTINUE TO MONITOR FOR ANY NEW CHNAGES IN CONDITION.
--- NOTE | 2020-06-06 00:45 | NUR ---
PT ASSISTED TO TOILET. PT HAD A BM. PT STATES HE FEELS A WHOLE LOT BETTER NOW THAT HE HAS HAD A BM. PT ABLE TO AMBULATE SELF WITH STAND BY ASSIST BY STAFF. WILL CONTINUE TO MONITOR FOR ANY NEW CHNAGES IN CONDITION.
[2020-06-06 03:37] VITALS: BP 101/60
[2020-06-06 05:22] LABS: IMMATURE GRANULOCYTES 0.4 % (0.0-5.0); MEAN CELL VOLUME 95.1 fL CALC (80.0-100.0); MEAN CORPUSCULAR HGB 31.3 pG CALC (26.0-32.0); MEAN CORPUSCULAR HGB CONC 32.9 g/dL CAL (32.0-36.0); NEUT# 5.91 thou/uL (1.82-7.42); RED BLOOD COUNT 3.04 mill/uL (4.70-6.10); RED CELL DISTRI WIDTH 14.1 % (11.5-15.5)
[2020-06-06 05:32] LABS: HEMATOCRIT 28.9 % (39.0-50.0); HEMOGLOBIN 9.5 g/dl (14.0-18.0)
[2020-06-06 05:49] LABS: ANION GAP 7 (6-22 (CALC)); BUN 27 mg/dL (8-23); BUN/CREATININE RATIO 42 (12-20 (CALC)); CARBON DIOXIDE 29 mmol/l (22-30); CHLORIDE 99 mmol/l (95-108); CREATININE 0.6 mg/dL (0.7-1.3); GFR > 60 ML/MIN (>=60 (CALC)); GFR FOR AFR.AMER. > 60 ML/MIN (>=60 (CALC)); POTASSIUM 3.7 mmol/l (3.5-5.1); SODIUM 131 mmol/l (137-146)
--- NOTE | 2020-06-06 05:55 | NUR ---
PT RESTING WELL IN BED. EASILY AROUSES WITH NOISE. PT STATES HE HAS BEEN ABLE TO SLEEP MUCH BETTER AND IS HAPPY THAT HE HAD A BM. LAB DRAWN THIS AM. REPLACED NC TUBING D/T TUBING BROKEN AT NASAL AREA. WILL CONTINUE TO MONITOR FOR ANY NEW CHANGES IN CONDITION.
--- NOTE | 2020-06-06 07:50 | NUR ---
ASSESSMENT IS COMPLETED: IV SITE IS FREE FROM, REDNESS OR EDEMA.HR IS REG,PULSES ARE STRONG X4, ABD IS SOFT WITH ACTIVE BS. BREATH SOUNDS ARE DIMINISHED AND COARSE. O2@ 2LITERS WITH NC. DRESSING ON ABD IS CDI. CONTINUE TO OSBERVE AND MONITOR.
[2020-06-06 09:00] VITALS: BP 105/67
--- NOTE | 2020-06-06 10:16 | NUR ---
DR NICKERSON IN TO VISIT WITH PT.
--- NOTE | 2020-06-06 12:30 | NUR ---
PT IS RELAXING IN THE CHAIR. NO DISTRESS NOTED. IV SITE IS FREE FROM REDNESS OR EDEMA.
--- NOTE | 2020-06-06 13:20 | NUR ---
DR QUISPE IN TO VISIT WITH PT.
[2020-06-06 15:00] VITALS: BP 102/57
--- NOTE | 2020-06-06 16:21 | NUR ---
RECEIVED REPORT FROM NURSE MACIEL AND PT IN BED WITH EYES OPEN AND ABLE TO MAKE NEEDS KNOWN. RESPIRATIONS ARE EVEN AND NON LABORED. REQUESTED ATIVAN FOR ANXIETY AND RESTLESSNESS AN MEDICATED PRESCRIBED BY MD.PICC LINE FLUSHED WITH NO COMPLICATIONS NOTED. CALL LIGTH WITHIN REACH AND WILL CONTINUE TO OBSERVE.
[2020-06-06 18:49] VITALS: BP 91/66
--- NOTE | 2020-06-06 19:00 | NUR ---
REPORT RECEIVED FROM Suzie OCAMPO RN, CARE OF PT ASSUMED AT THIS TIME.
--- NOTE | 2020-06-06 20:45 | NUR ---
PHYSICAL ASSESMENT COMPLETE. REPORTS PAIN TO COCCYX, UPON EXAM CIRCULAR DTI NOTED, SURROUNDING SKIN REDDENED AND BLANCHABLE. SMALL 1X1cm STG 2 NOTED. PHOTO DOCUMENTATION OBTAINED. DUODERM DRESSING APPLIED. WOUND CARE CONSULTED. SCHEDULED MEDS ADMINISTERED, SEE E-MAR. PT PROVIDED WITH HS SNACK. PT DENIES ANY NEEDS AT THIS TIME. PLAN OF CARE REVIEWED, PT DENIES QUESTIONS, VERBALIZES UNDERSTANDING. ITEMS WITHIN REACH, BED LOCKED IN LOW POSITION W/ BEDRAILS UP X2. CALL ADKINS WITHIN REACH, AGREES TO CALL PRN.
[2020-06-07 04:01] VITALS: BP 86/52
--- NOTE | 2020-06-07 05:33 | NUR ---
ASSESMENT UNCHANGED FROM BEGINING OF SHIFT BASELINE ASSESMENT. AM HEMODYNAMICS WNL/ STABLE. PT AFEBRILE. PT DENIES NEEDS AT THIS TIME. ITEMS REMAIN WITHIN REACH, BED REMAINS LOCKED IN LOW POSITION W/ BEDRAILS UP X2.CALL ADKINS REMAINS WITHIN REACH, AGREES TO CALL PRN.
[2020-06-07 06:09] LABS: HEMATOCRIT 28.6 % (39.0-50.0); HEMOGLOBIN 9.1 g/dl (14.0-18.0); IMMATURE GRANULOCYTES 0.4 % (0.0-5.0); MEAN CELL VOLUME 95.7 fL CALC (80.0-100.0); MEAN CORPUSCULAR HGB 30.4 pG CALC (26.0-32.0); MEAN CORPUSCULAR HGB CONC 31.8 g/dL CAL (32.0-36.0); NEUT# 5.03 thou/uL (1.82-7.42); RED BLOOD COUNT 2.99 mill/uL (4.70-6.10)
[2020-06-07 06:30] LABS: ALKALINE PHOSPHATASE 68 u/l (38-126); BUN 15 mg/dL (8-23); BUN/CREATININE RATIO 31 (12-20 (CALC)); CREATININE 0.5 mg/dL (0.7-1.3); GFR > 60 ML/MIN (>=60 (CALC)); GFR FOR AFR.AMER. > 60 ML/MIN (>=60 (CALC)); SGOT/AST 23 u/l (19-48); SODIUM 136 mmol/l (137-146)
[2020-06-07 06:33] LABS: ANION GAP 4 (6-22 (CALC)); CARBON DIOXIDE 23 mmol/l (22-30); CHLORIDE 112 mmol/l (95-108); POTASSIUM 2.7 mmol/l (3.5-5.1)
[2020-06-07 06:37] LABS: ALBUMIN 1.8 g/dL (3.2-5.0); BILIRUBIN, TOTAL 0.5 mg/dL (0.0-1.4); TOTAL PROTEIN 3.8 g/dL (6.3-8.2)
[2020-06-07 07:43] VITALS: BP 96/53
--- NOTE | 2020-06-07 07:43 | NUR ---
REPORT RECEIVED FROM WILLY YU. PT RESTING IN BED SEMI FOWLERS; ALERT AND ORIENTED X 3. DENIES PAIN, BUT REPORTS ABDOMINAL TENDERNESS WITH PALPATION. RESPIRATIONS EVEN AND UNLABORED ON OXYGEN 2L VIA NC; SPO2 97%; REPORTS EXERTIONAL SOB. DRESSING TO ABDOMEN CDI. PICC LINE TO CORBIN APPEARS HEALTHY AND FLUSHES WITH GOOD BLOOD RETURN; DRESSING CDI AND DATED 06/04/20. PLAN OF CARE REVIEWED. PT ENCOURAGED TO VERBALIZE CONCERNS. STATES UNDERSTANDING. SAFETY MEASURES IN PLACE. CALL LIGHT WITHIN REACH.
--- NOTE | 2020-06-07 08:18 | NUR ---
DR. CHRISTINE AT BEDSIDE.
--- NOTE | 2020-06-07 09:26 | NUR ---
PT SITTING UP IN RECLINER. POTASSIUM AND MAGNESIUM INFUSING AT THIS TIME.
--- NOTE | 2020-06-07 10:45 | NUR ---
PT REMOVED OXYGEN AND NOW RESTING HIGH FOWLERS ON ROOM AIR. DECLINED SURFAK; REPORTS THAT HE HAD A LOOSE BOWEL MOVEMENT YESTERDAY AND DOES NOT WANT IT.
--- NOTE | 2020-06-07 13:00 | NUR ---
DAUGHTER AT BEDSIDE. REQUESTING UPDATE; QUESTIONS ANSWERED TO SATISFACTION. DISCUSSED DC PLAN; PT DECLINES REHAB. ALL ELECTROLYTE REPLACEMENTS ARE COMPLETE AND PICC LINE AGAIN HEPARIN LOCKED. PT REQUESTS WARM BLANKET. CALL LIGHT WITHIN REACH.
--- NOTE | 2020-06-07 14:04 | NUR ---
Pt was sitting in recliner upon entering. Therex consisted of LAQ 2x10, pillow squeeze 1x10, standing hip abduction 2x10, mini squats 2x10, standing heel raises 2x10, standing hip ext 2x10, marching in place, sit to stand x5.
[2020-06-07 15:45] VITALS: BP 113/66
--- NOTE | 2020-06-07 17:50 | NUR ---
PT TRANSFERRED TO ICU ROOM 6 VIA WHEELCHAIR IN STABLE CONDITION. REPORT GIVEN TO WILLY ESPARZA.
--- NOTE | 2020-06-07 17:55 | NUR ---
PT ARRIVED TO ICU BED 6 VIA WHEELCHAIR. PT TRANSFERRED SELF TO BED WITH MINIMAL ASSISTANCE. SET UP FOR PM MEAL. ORIENTED TO ROOM AND UNIT. CALL LIGHT IN REACH. WILL CONTINUE TOMONITOR.
--- NOTE | 2020-06-07 19:30 | NUR ---
BEDRESTING. RESP EVEN AND NONLABORED. N/C AT THIS TIME
--- NOTE | 2020-06-07 20:30 | NUR ---
WATCHING TV. NO DISTRESS NOTED
--- NOTE | 2020-06-07 21:20 | NUR ---
REQUESTED HIS PAIN PILL AND ANXIETY PILL AT THIS TIME. SO, MEDICATION GIVEN WITH HS MEDICATION PER HIS REQUEST. HOWEVER, PT DECLINED SURFAK STATING HE HAD A LOOSE STOOL YESTERDAY AND COULD BLOW ONE OUT RIGHT NOW BUT IS HOLDING IT.
--- NOTE | 2020-06-07 22:00 | NUR ---
PAIN MEDICATION EFFECTIVE. BEDRESTING WATCHING TV. NO DISTRESS NOTED
[2020-06-08] VITALS: BP 88/59
--- NOTE | 2020-06-08 | NUR ---
BEDRESTING. RESP EVEN AND NONLABORED. PT SPOKE WITH DAUGHTER AND TOLD HER THAT HE HAD BEEN MOVED BACK TO ICU BUT SIS NOT KNOW WHT. DAUGHTER CALLED, FRANTIC. I EXPLAINED THAT HIS CONDITION HAD NOT CHANGED, THAT IT WAS JUST DUE TO STAFFING. PT NOTIFIED WELL. BOTH PT AND DAUGHTER SOUNDED RELEIVED TO HEAR THAT.
--- NOTE | 2020-06-08 01:51 | NUR ---
BEDRESTING. VS OBTAINED. B/P LOW BUT MEAN IS 65. N/C VOICED
--- NOTE | 2020-06-08 04:00 | NUR ---
BEDRESTING. EYES CLOSED. RESP EVEN AND NONLABORED. N/C OR DISTRESS NOTED
[2020-06-08 05:37] LABS: HEMATOCRIT 30.6 % (39.0-50.0); HEMOGLOBIN 9.7 g/dl (14.0-18.0); MEAN CELL VOLUME 95.3 fL CALC (80.0-100.0); MEAN CORPUSCULAR HGB 30.2 pG CALC (26.0-32.0); MEAN CORPUSCULAR HGB CONC 31.7 g/dL CAL (32.0-36.0); RED BLOOD COUNT 3.21 mill/uL (4.70-6.10)
[2020-06-08 05:59] LABS: BILIRUBIN, TOTAL 0.7 mg/dL (0.0-1.4); BUN 14 mg/dL (8-23); BUN/CREATININE RATIO 25 (12-20 (CALC)); CARBON DIOXIDE 27 mmol/l (22-30); CHLORIDE 102 mmol/l (95-108); CREATININE 0.6 mg/dL (0.7-1.3); GFR > 60 ML/MIN (>=60 (CALC)); GFR FOR AFR.AMER. > 60 ML/MIN (>=60 (CALC)); SGOT/AST 31 u/l (19-48); SODIUM 132 mmol/l (137-146)
[2020-06-08 06:09] LABS: ALBUMIN 2.6 g/dL (3.2-5.0); ALKALINE PHOSPHATASE 106 u/l (38-126); ANION GAP 7 (6-22 (CALC)); TOTAL PROTEIN 5.3 g/dL (6.3-8.2)
--- NOTE | 2020-06-08 07:20 | NUR ---
RECIEVED REPORT FROM WILLY RUGGIERO. PT RESTING IN EYES CLOSED UPON ENTERING ROOM. RESPIRATIONS ARE EVEN AND UNLABORED WITH ZOHRA SIGNS OF DISTRESS. INTRODUCED SELF TO PT AND DISCUSSED POC. PT VERBALIZED UNDERSTANDING. ALL SAFETY PRECAUTIONS ARE IN PLACE WITH CALL LIGHT IN REACH.W ILL CONTINUE TO MONITOR
[2020-06-08 08:00] VITALS: BP 104/63
--- NOTE | 2020-06-08 08:40 | NUR ---
DR CHRISTINE AT BEDSIDE DISCUSSING POC.
--- NOTE | 2020-06-08 09:15 | NUR ---
REASSESSMENT OF PAIN AT THIS ITME RESULTING IN 05/31. PT STATES THAT "MEDICTAION IS HELPING." RESPIRATIONS ARE EVEN AND UNLABORED WITH NO SIGNS OF DISTRESS. ALL SAFTEY PRECAUTIONS RE IN PLACE WITH CALL LIGHT IN REACH. ENCOURAGED PT TO CALL FOR ASSISTANCE IF NEEDED. WILL CONTINUE TO MONITOR
--- NOTE | 2020-06-08 10:19 | NUR ---
ASSESSMENT AND VITALS COMPLETED AT THIS TIME. RESPIRATIONS ARE EVEN AND UNLABORED. LUNG SOUNDS ARE COARSE. PT PRESENTS WITH NON PRODUCTIVE COUGH. HEART RHYTHM IS NORMAL. BOWEL SOUNDS ARE ACTIVE IN ALL QRADRANTS WITH SOME TENDERNESS, LAST REPORTED BM 06/06/20. PT REFUSED MORNING STOOL SOFTENER. RADIAL PULSES ARE STRONG. PEDAL PULSES ARE WEAK WITH NORMAL CAPILLARY REFILL. PT PRESENTS WITH PICC IN [facility], SITE PRESENTS HEALHTY AND PATENT WITH GOOD BLOOD RETURN. PT HAD PEDTUBE REMOVED 06/07/[address] QUISPE. DRESSING IS CDI AT THSI TIME. PT COMPLAINS OF 10/10 PAIN OXYCODONE TO BE ADMINISTERED. PT REQUESTED PAIN MEDICATION WITH ATIVAN. WRITTER EDUCATED PT THAT BOTH WAS NO BEING GIVEN AT THE SAME TIME AND ATIVAN CAN BE ADMINISTERED LATER. PT VERBALIZED UNDERSTADING. PT HAS STAGE 2 PRESSURE ULCER ON BUTTOCK, DRESSING CDI AT THIS TIME. ALL SAFETY PREACUTIONS ARE IN PLACE WITH CALL LIGHT IN REACH.WILL COTNINUE TO MONITOR
--- NOTE | 2020-06-08 11:35 | NUR ---
PT TRANSPORTED TO [facility] ROOM 270 VIA WHEELCHAIR IN STABLE CONDITION ACCOMPAINED BY WRITTER. PT SETTLED INTO ROOM. RESPIRATIONS ARE EVEN AND UNALBROED WITH NO SIGNS OF DISTRESS. ALL SAEFTY PRECAUTIONS ARE IN PLACE WITH CALL LIGHT IN REACH.W ILL CONTINUE TO MONITOR
[2020-06-08 12:35] VITALS: BP 119/65
--- NOTE | 2020-06-08 13:49 | NUR ---
physical therapy attempted however pt. reported he did not feel like doing anything and he just wants to go home
--- NOTE | 2020-06-08 15:10 | NUR ---
PT REQUEST FOR "HAPPY PILL". ASKED PT WHAT WAS HIS "HAPPY PILL" AND PT STATED "THE STUFF I GET THROUGH MY IV FOR MY AGITATION". ATIVAN ADMINISTERED. RESPIRATIONS ARE EVEN AND UNLABORED WITH NO SIGNS OF DISTRESS. ALL SAFETY PRCAUTIONS REMAIN IN PLACE WITH CALL LIGHT IN REACH. WILL CONTINUE TO MONITOR
[2020-06-08 15:35] VITALS: BP 115/56
--- NOTE | 2020-06-08 16:17 | NUR ---
PT SLEEPING IN SEMI FOWLERS POSITION. RESPIRATIONS ARE EVEN AND UNLABORED WITH NO SIGNS OF DISTRESS. NO SIGNS OF PAIN. ALL SAFTEY PRECAUTIONS ARE IN PLACE WITH CALL LIGHT IN REACH. WILL CONTINUE TO MONITOR
--- NOTE | 2020-06-08 17:35 | NUR ---
PT COMPLAINS OF 10/10 BACK AND ABD PAIN.OXYCODONE ADMINISTERED AT THSI TIME.
--- NOTE | 2020-06-08 18:38 | NUR ---
REASSESSMENNT OF PAIN AT THIS TIME RESULTING IN 8/10. RESPIRATION SARE EVEN AND UNLABORED WIT NO ISGNS OF DISTRESS. DRESSING ON COCCYX CHANGED. PT PRESENTED WITH STAGE 2 PRESSURE ULCER. DUODERM APPLIED. DRESSING IS CDI AT THSI TIME. WILL CONTINUE TO MONITOR
[2020-06-08 19:00] VITALS: BP 98/54
--- NOTE | 2020-06-08 20:15 | NUR ---
2015-Pt sitting up in bed. No s/s of distess. Assessment completed. Bed low and locked. Call light and phone within reach. Pt stable. Will continue to monitor.
--- NOTE | 2020-06-09 00:41 | NUR ---
0041-Pt lying in bed, asleep. No s/s of distress. Bed low and locked. Call light and phone within reach. Pt stable, will continue to monitor.
--- NOTE | 2020-06-09 02:55 | NUR ---
0253-Pt asked for his ativan. Pt states he is cold. Checked temperature, it is currently 99.8. He also has some changes to his voice, which is now more coarse. Pt is alert and oriented at this time. No s/s of distress. Pt would like his percoet continued. I will notify Dr. Painter. Bed low and locked. Call light and phone within reach. Pt stable at this time, will continue to monitor.
--- NOTE | 2020-06-09 03:03 | NUR ---
0303-Dr. Painter notified about spike in temperature, percocet renewal and change of quality of speech. Pt has become increasingly hoarse. Bed low and locked. Call light and phone within reach. Pt stable. Will continue to monitor closely.
--- NOTE | 2020-06-09 03:33 | NUR ---
0326-Dr. Painter notified of change in pt status. ABG ordered stat. Dr. Painter does not want to renew pain medication at this time. Pt surgical dressing changed, timed and dated. Wound edges are pink and approximated. No odor, no discharge. Pt tolerated well, he states that it feels really nice to have the dressing changed. Pt is stable at this time. Will continue to monitor.
--- NOTE | 2020-06-09 03:45 | NUR ---
0345-Pt lying in bed, asleep. No s/s of distress. Bed low and locked. Call light and phone within reach. Pt stable at this time, will continue to monitor.
[2020-06-09 04:27] VITALS: BP 98/63
[2020-06-09 08:27] VITALS: BP 106/94
--- NOTE | 2020-06-09 08:27 | NUR ---
RECIEVED REPORT FROM WILLY WOLF. PT SITTING IN SEMI FOWLERS SPOTIION UPON ENETRING ROOM. INTRODUCED SELF TO PT AND DISCUSSED POC. ASSESSMENT AND VITALS COMPLETED AT THIS TIME. REPSIRATIONS ARE SHALLOW, PT DENIES ANY SOB. 2L NC APPLIED, SATTING AT 96%. HEART RHYTHM NORMAL.BOWEL SOUNDS ARE ACTIVE IN ALL QUADRANTS, LAST REPORTED BM 06/08/20. RADIAL AND PEDAL PULSES ARE STRONG WITH NORMAL CAPILLARY REIFLL. CORBIN PICC APPEARS PATENT WITH GOOD BLOOD RETURN. PT COMPLAINS OF 10/10 PAIN IN BACK AND ABD. INFORMED PT THAT HIS PAIN MEDICATION WAS D/C AND WRITTER WOULD NOTIFY MD ABOUT PAIN MEDICATION. PT VERBALIZED UNDERSTANDING. UPON ENTERING ROOM. PT INFORMED WRITTER OF SOILED GOWN, UPON REMOVING THE GOWN WRITTER NOTICED THAT PEG TUBE DRESSING WAS SOILED. DRESSING CHANGED BY DR. QUISPE AT THIS TIME. PT DENIES ANY OTHER PAINS OR DISCOMFORTS. ALL SAFETY PRECAUTIONS ARE IN PLACE WITH CALL LIGHT IN REACH. WILL COTNINUE TO MONITOR
--- NOTE | 2020-06-09 12:58 | NUR ---
PT COMPLAINS OF 10/10 PAIN IN BACK, NECK , ABD AND BUTTOCK. WRITTER SUGGESTED SITTING UP IN CHAIR, PT REFUSED STATING "I CANT, IM IN TOO MUCH PAIN." PT REQUESTED A PAIN PILL AND ATIVAN. WRITTER INFORMED PT THAT BOTH WAS NOT TO BE GIVEN AT THE SAME TIME. PERCOCET TO BE ADMINISTERED FIRST AND WRITTER WILL REASSESS. PT VERBALIZED UINDERSTANDING. RESPIRATIONS ARE EVEN AND UNLABORED WITH NO SIGNS OF DISTRESS. ALL SAFETY PRECAUTIONS ARE IN PLACE WITH CALL LIGHT IN REACH. WILL CONTINUE TO MONTIOR
--- NOTE | 2020-06-09 13:15 | NUR ---
PT.NOTE Pt. seated upright w/ son as entered room. Pt agreed to particpate in therapy session today. Scooting to edge of bed(independant), static seating balance adequate, states he slightly light headed as he performed act. Educated pt. on deep breathing exercises. Sit>stand (CGA) staic standing balance slightly LOB, ambulated throughout room to couch where pt. executed 5 sit>stand w/o UE. Ambulation to bedside (CGA) stand>sit (independant), sit>semi-fowlers position (independent). Tray table call nunez by pt. side as exited room. [facility] 6 score 14
--- NOTE | 2020-06-09 14:18 | NUR ---
REASSESSMENT OF PAIN AT THIS TIME RESULTING IN 3/. RESPIRATIONS ARE EVEN AND UNLABROED WITH NO SIGNS OF DISTRESS. SUGGESTED PT SIT UP IN CHAIR AT THIS TIME. PT AGREED. WRITTER ASSSISTED PT TO CHAIR. ALL SAFTYE PRECAUTIONS ARE IN PLACE WITH CALL LIGHT IN REACH. WILL CONTINUE TO MONITOR
--- NOTE | 2020-06-09 16:38 | NUR ---
PT RESTING IN SEMI FOWLERS POSITION UPONE ENTERING ROOM. RESPIRTAIONS ARE EVEN AND UNLABORED WITH NO SIGNS OF DISTRESS. DRESSING ON ABD AND BUTTOCK CHANGED AT THIS TIME. PT TOLERATED WELL. ALLS AEFTY PRECAUTIONS ARE IN PLACE WITH CALL LIGHT IN REACH AND GRANDAUGHTER AT BEDSIDE. WILL CONTINUE TO MONTIOR
--- NOTE | 2020-06-09 17:00 | NUR ---
UPON ENTERING ROOM WRITTER OBSERVED PT EATING STEAK WITH POTATOES THAT GRANDDAUGHTER HAD BROUGHT HIM. WRITTER INFORMED PT THAT HE WAS MARISSA PUREED DIET DUE TO HIS HISTORY OF ASPIRATING. PT STATED " I KNOWN." WRITTER INFORMED PT THAT HE COULD NOT EAT THE STEAK. PT STATED "I DONT CARE, IM ALREADY EATING IT AND IM GOING TO FINISH IT."
[2020-06-09 18:44] VITALS: BP 98/46
--- NOTE | 2020-06-09 19:22 | NUR ---
REPORT FROM JU CUEVA. PT NOTED SITTING UP IN BED ON CELLPHONE. ALERT AND ORIENTED. NO APPARENT DISTRESS NOTED. SINGLE LUMEN PICC TO ANT ALANIZ. PT DENIES ANY CURRENT WANTS OR NEEDS. CALL LIGHT WITHIN REACH. WILL CONTINUE TO MONITOR.
[2020-06-09 19:40] VITALS: BP 105/58
--- NOTE | 2020-06-09 21:53 | NUR ---
PT MEDICATED ORDERED. PT REFUSED COLACE AT THIS TIME. PT DENIES ANY OTHER WANTS OR NEEDS. CALL LIGHT WITHIN REACH. WILL CONTINUE TO MONITOR.
--- NOTE | 2020-06-10 00:54 | NUR ---
PT RESTING IN BED WITH EYES CLOSED. NO APPARENT DISTRESS NOTED. RESPIRATIONS EVEN AND UNLABORED. DRESSING TO ABD, CDI. CALL LIGHT WITHIN REACH. WILL CONTINUE TO MONITOR.
[2020-06-10 04:00] VITALS: BP 113/63
--- NOTE | 2020-06-10 04:23 | NUR ---
LABS OBTAINED FROM PICC LINE PER PROTOCOL. PT DENIES ANY PAIN OR DISCOMFORT. WARM BLANKET PROVIDED UPON REQUEST. NO OTHER WANTS OR NEEDS NOTED. CALL LIGHT WITHIN REACH. WILL CONTINUE TO MONITOR.
[2020-06-10 04:57] LABS: HEMATOCRIT 30.8 % (39.0-50.0); HEMOGLOBIN 9.9 g/dl (14.0-18.0); MEAN CELL VOLUME 94.5 fL CALC (80.0-100.0); MEAN CORPUSCULAR HGB 30.4 pG CALC (26.0-32.0); MEAN CORPUSCULAR HGB CONC 32.1 g/dL CAL (32.0-36.0); RED BLOOD COUNT 3.26 mill/uL (4.70-6.10); RED CELL DISTRI WIDTH 13.7 % (11.5-15.5)
[2020-06-10 05:20] LABS: ALBUMIN 2.7 g/dL (3.2-5.0); ALKALINE PHOSPHATASE 101 u/l (38-126); ANION GAP 9 (6-22 (CALC)); BUN 14 mg/dL (8-23); BUN/CREATININE RATIO 24 (12-20 (CALC)); CARBON DIOXIDE 27 mmol/l (22-30); CHLORIDE 101 mmol/l (95-108); CREATININE 0.6 mg/dL (0.7-1.3); GFR > 60 ML/MIN (>=60 (CALC)); GFR FOR AFR.AMER. > 60 ML/MIN (>=60 (CALC)); POTASSIUM 4.3 mmol/l (3.5-5.1); SGOT/AST 35 u/l (19-48); SODIUM 132 mmol/l (137-146); TOTAL PROTEIN 5.5 g/dL (6.3-8.2)
[2020-06-10 05:34] LABS: BILIRUBIN, TOTAL 0.4 mg/dL (0.0-1.4)
[2020-06-10 08:04] VITALS: BP 108/73
--- NOTE | 2020-06-10 08:04 | NUR ---
RECIEVED REPORT FROM HAMMAD MERCEDES. PT RESTING IN LOW FOWLERS POSITION UPON ENTERING. INTRODUCED SELF TO PT AND DISCUSSED POC. ASSESSMENT AND VITALS COMPLETED AT THIS TIME. RESPIRATIONS ARE EVEN AND UNLABORED WITH NO SIGNS OF DISTRESS. LUNG SOUNDS ARE CLEAR. HEART RHYTHM IS NORMAL. BOWEL SOUND SARE ACTIVE IN ALL QUADRANTS, LAST REPORTED BM 06/09/20. RADIAL AND PEDAL PULSES ARE STRONG WITH NORMAL CAPILLARY REFILL. PT COMPLAINS OF PAIN /, PT REQUEST ATVIAN AND PERCOCET.WRITTER SUGGESTED ATIVAN FIRST THAT WILL HELP WITH PAIN AND AGITATION.PT AGREED. WOUND CARE DR AT BEDSIDE. ABD AND COCCYX DRESSINGS CHANGED AT THIS TIME. WOUND CARE ORDERED TO CONTINUE WET TO DRY DRESSING FOR ABD AND APPLICATION OF ALGINATE ON COCCYX. DRESSING ARE CDI AT THIS TIME. ALL SAFETY PRECAUTIONS ARE IN PLACE WITH CALL LIGHT IN REACH. WILL CONTINUE TO MONITOR
--- NOTE | 2020-06-10 09:03 | NUR ---
PUSH DIPEPTIDE POWDER PACKETS ORDERED FOR PT. CALLED PHARMACY TO SEE IF ITS SOMETHING THEY CARRIED, THE DO NOT CARRY IT. MATERIALS CALLED. WRITTER INFORMED THATS ITS NOT SOMETHING WE CARRYA DN IT WILL AHVE TO BE SPECIAL ORDERED, TAKING A COUPLE DAYS TO COME BACK. NOTIFIED WOUND CARE DOCTOR OF HAVING TO SPECIAL ORDER. WRITTER INFORMED THAT WE DID NOT HAVE TO GET IT HERE AT OUR HOSPITAL BUT TO MAKE SURE THAT ITS IN DISCHARGE INSTRUCTIONS WHEN DISCHARGED
--- NOTE | 2020-06-10 10:49 | NUR ---
Pt.Note Entered pt. room as he was supine. Pt. had agreed to participate in therapy session. supine>sit edge of bed (independant), sit>stand x 7, (CGA) slight unsteadiness on feet. Static standing to initiate gait training. Ambualtion x 20 feet, LOB noted and O2 stats remain above 92 during exercises. Stand>sit,(CGA) VC for correct hand placement as he descends to a seated position. when seated pt. performed LAQ x 10 bilaterally, hip flexion x 10 bilaterally. Sit>supine(MIN A), need assistance w/ LE to bring over bedside. Tray table and call nunez by patient side as exited room.
--- NOTE | 2020-06-10 12:30 | NUR ---
PICC REMOVED BY AMARI AGUILERA. PT TOLERATED WELL
--- NOTE | 2020-06-10 12:46 | NUR ---
Discharge instructions given. Patient verbalizes understanding of same. Discharged in stable condition via Stretcher to [facility] with staff. All belongings sent with pt. PT BEING TRANSPORTED TO [facility] VIA STRETCHER ACCOMPAINED BY [facility] TRANSPORTATION. ALL BELONGINGS AND DISCHARGE INSTRUCTIONS LEFT WITH PT.
--- NOTE | 2020-06-10 13:15 | NUR ---
REPORT GIVEN TO WILLY LYON [facility]
[2020-08-03] MEDS ORDERED: ASPIRIN ADULT L81 M2 PO (08:46)
[2020-08-03] MEDS ORDERED: NITROGLYCERIN0.4 MG PO (08:47)
== END 2020-06-10 12:49 | DRG 356 ==
LOC: ED 13:23 → ED-I 15:58 → ED 16:15 → ICU 16:16 → MS2 16:16 → ICU 16:42 → MS2 05-20 17:53 → ICU 06-07 17:54 → MS2 06-08 11:58
PROVIDERS: Family Medicine; Internal Medicine; Nurse Practitioner; Nurse Practitioner Family; Physician Assistant; Surgery; ADMIT Internal Medicine; ATTEND Internal Medicine
PROC: 0DP6XUZ Removal of Feeding Device from Stomach, External Approach (ICD-10-PCS; principal; 2020-05-18)
PROC: 02HV33Z Insertion of Infusion Device into Superior Vena Cava, Percutaneous Approach (ICD-10-PCS; 2020-05-25)
PROC: B518ZZA Fluoroscopy of Superior Vena Cava, Guidance (ICD-10-PCS; 2020-05-25)
PROC: 0WBF0ZZ Excision of Abdominal Wall, Open Approach (ICD-10-PCS; 2020-06-01)
DX: K94.22 Gastrostomy infection (principal); J69.0 Pneumonitis due to inhalation of food and vomit; E46 Unspecified protein-calorie malnutrition; T81.83XA Persistent postprocedural fistula, initial encounter; J96.11 Chronic respiratory failure with hypoxia; R64 Cachexia; J43.9 Emphysema, unspecified; I11.0 Hypertensive heart disease with heart failure; I50.9 Heart failure, unspecified; R13.10 Dysphagia, unspecified; I25.10 Atherosclerotic heart disease of native coronary artery without angina pectoris; B19.20 Unspecified viral hepatitis C without hepatic coma; E78.5 Hyperlipidemia, unspecified; I71.4 Abdominal aortic aneurysm, without rupture; K94.21 Gastrostomy hemorrhage; E83.51 Hypocalcemia; E87.6 Hypokalemia; L89.156 Pressure-induced deep tissue damage of sacral region; K44.9 Diaphragmatic hernia without obstruction or gangrene; F41.9 Anxiety disorder, unspecified; K82.8 Other specified diseases of gallbladder; F31.9 Bipolar disorder, unspecified; E88.09 Other disorders of plasma-protein metabolism, not elsewhere classified; M62.50 Muscle wasting and atrophy, not elsewhere classified, unspecified site; D64.9 Anemia, unspecified; G47.00 Insomnia, unspecified; I25.2 Old myocardial infarction; F17.200 Nicotine dependence, unspecified, uncomplicated; Y83.3 Surgical operation with formation of external stoma as the cause of abnormal reaction of the patient, or of later complication, without mention of misadventure at the time of the procedure; Z85.810 Personal history of malignant neoplasm of tongue; Z91.11 Patient's noncompliance with dietary regimen; Z68.21 Body mass index [BMI] 21.0-21.9, adult; Z95.1 Presence of aortocoronary bypass graft; Z86.711 Personal history of pulmonary embolism; Z87.01 Personal history of pneumonia (recurrent); Z90.49 Acquired absence of other specified parts of digestive tract; Z20.828 Contact with and (suspected) exposure to other viral communicable diseases
CPT/HCPCS: J0131; J0692; J1650; J2060; J3475; Q9967; S0164

== ENCOUNTER 2020-08-25 06:29 | Day surgery (SDC) | payer MEDICARE, MEDICAID ==
[~2020-08-25 06:29] MED LIST changes: +ASPIRIN ADULT L81 M2 PO; +NITROGLYCERIN0.4 MG PO; +TRELEGY ELLIPTA1 AER
[2020-08-25] MEDS ORDERED: NEBULIZE2 IN (06:46)
[2020-08-25] MEDS ORDERED: NICOTINE T21 MG/242 TOP (07:08)
[2020-08-25 08:34] VITALS: BP 121/63
== END 2020-08-25 09:10 | disposition home or self-care (01) ==
LOC: ORM 06:29
PROVIDERS: ATTEND Anesthesiology Pain Medicine
DX: M54.2 Cervicalgia (principal); M12.9 Arthropathy, unspecified; Z01.84 Encounter for antibody response examination

== ENCOUNTER 2020-10-06 06:12 | Day surgery (SDC) | payer MEDICARE, MEDICAID ==
[~2020-10-06] VITALS: Ht 185.4 cm; Wt 68.0 kg
[~2020-10-06 06:12] MED LIST changes: +NEBULIZE2 IN; +NICOTINE T21 MG/242 TOP
[2020-10-06 08:50] VITALS: BP 109/70
== END 2020-10-06 10:00 | disposition home or self-care (01) ==
LOC: ORM 06:12
PROVIDERS: ATTEND Anesthesiology Pain Medicine
DX: M54.6 Pain in thoracic spine (principal); Z01.84 Encounter for antibody response examination

== ENCOUNTER → 2020-12-08 | Day surgery (SDC) | payer MEDICARE, MEDICAID ==
[~2020-12-08] VITALS: Ht 185.4 cm; Wt 72.6 kg
[2020-12-08 08:40] VITALS: BP 124/71
== END ==
LOC: ORM 07:55
PROVIDERS: ATTEND Anesthesiology Pain Medicine
DX: M54.2 Cervicalgia (principal); M12.9 Arthropathy, unspecified; Z53.29 Procedure and treatment not carried out because of patient's decision for other reasons; Z01.84 Encounter for antibody response examination

== ENCOUNTER 2021-03-01 19:39 | Observation (INO) | payer MEDICARE, MEDICAID ==
[~2021-03-01] VITALS: Ht 185.4 cm; Wt 68.0 kg
[~2021-03-01 19:39] MED LIST changes: -TRELEGY ELLIPTA1 AER; +TRELEGY ELLIPTA1 AER PO
--- NOTE | 2021-03-01 20:13 | NUR ---
BREATHING TREATMENT GIVEN.
[2021-03-01 20:23] LABS: IMMATURE GRANULOCYTES 0.4 % (0.0-5.0); MEAN CORPUSCULAR HGB 28.8 pG CALC (26.0-32.0); MEAN CORPUSCULAR HGB CONC 33.6 g/dL CAL (32.0-36.0); NEUT# 4.52 thou/uL (1.82-7.42); RED BLOOD COUNT 4.97 mill/uL (4.70-6.10); RED CELL DISTRI WIDTH 12.3 % (11.5-15.5)
[2021-03-01 20:33] LABS: HEMATOCRIT 42.5 % (39.0-50.0); HEMOGLOBIN 14.3 g/dl (14.0-18.0); MEAN CELL VOLUME 85.5 fL CALC (80.0-100.0)
[2021-03-01 20:35] LABS: ALKALINE PHOSPHATASE 108 u/l (38-126); BUN 14 mg/dL (8-23); BUN/CREATININE RATIO 19 (12-20 (CALC)); CARBON DIOXIDE 29 mmol/l (22-30); CREATININE 0.8 mg/dL (0.7-1.3); GFR > 60 ML/MIN (>=60 (CALC)); GFR FOR AFR.AMER. > 60 ML/MIN (>=60 (CALC)); POTASSIUM 4.3 mmol/l (3.5-5.1); SGOT/AST 55 u/l (19-48)
[2021-03-01 20:37] LABS: SODIUM 127 mmol/l (137-146)
[2021-03-01 20:39] LABS: ALBUMIN 4.3 g/dL (3.2-5.0); ANION GAP 16 (6-22 (CALC)); BILIRUBIN, TOTAL 0.9 mg/dL (0.0-1.4); CHLORIDE 86 mmol/l (95-108); TOTAL PROTEIN 9.2 g/dL (6.3-8.2)
--- NOTE | 2021-03-01 23:19 | NUR ---
REPORT TO WILLY ANN
--- NOTE | 2021-03-01 23:25 | NUR ---
Reassessment of patient completed. No distress noted.
--- NOTE | 2021-03-02 01:18 | NUR ---
Admission Note Report Given to: JOHNNA Transported by: X Wheelchair Stretcher Transported with: Nurse Transporter X Patent IV O2 X Home Paraprofessional Location: ICU X MS2
[2021-03-02 01:24] VITALS: BP 109/63
--- NOTE | 2021-03-02 01:24 | NUR ---
PT RECEIVED FROM ED TO ROOM 268. ARRIVES VIA WC ACCOMPANIED BY WALTER AGUILERA. PT AMBULATORY TO BED. GAIT UNSTEADY. PT DENIES PAIN AT THIS TIME. ORIENTED TO UNIT, ROOM, CALL ADKINS, LIGHTS, TV. ICE WATER PROVIDED. CALL ADKINS WITHIN REACH. AGREES TO CALL PRN.
--- NOTE | 2021-03-02 01:45 | NUR ---
PHYSICAL ASSESMENT COMPLETE. PT CURRENTLY DENIES PAIN OR DISCOMFORT. SCHEDULED MEDICATIONS AND PRN MEDICATION ADMINISTERED, SEE E-MAR. PT PROVIDED A MEAL, PLAN OF CARE REVIEWED, PT DENIES ADDITIONAL QUESTIONS, VERBALIZES UNDERSTANDING. ITEMS WITHIN REACH, BED LOCKED IN LOW POSITION W/ BEDRAILS UP X2. CALL ADKINS WITHIN REACH, AGREES TO CALL PRN.
--- NOTE | 2021-03-02 03:03 | NUR ---
PT RECEIVED FROM ED TO ROOM 269. ARRIVES VIA WC ACCOMPANIED BY WALTER AGUILERA. PT AMBULATORY TO BED. GAIT UNSTEADY. PT DENIES PAIN AT THIS TIME. ORIENTED TO UNIT, ROOM, CALL ADKINS, LIGHTS, TV. ICE WATER PROVIDED. CALL ADKINS WITHIN REACH. AGREES TO CALL PRN.
[2021-03-02 04:00] VITALS: BP 97/61
[2021-03-02 06:18] LABS: HEMATOCRIT 39.3 % (39.0-50.0); HEMOGLOBIN 13.2 g/dl (14.0-18.0); MEAN CELL VOLUME 85.2 fL CALC (80.0-100.0); MEAN CORPUSCULAR HGB 28.6 pG CALC (26.0-32.0); MEAN CORPUSCULAR HGB CONC 33.6 g/dL CAL (32.0-36.0); RED BLOOD COUNT 4.61 mill/uL (4.70-6.10); RED CELL DISTRI WIDTH 12.4 % (11.5-15.5)
[2021-03-02 06:40] LABS: ANION GAP 13 (6-22 (CALC)); BUN 13 mg/dL (8-23); BUN/CREATININE RATIO 20 (12-20 (CALC)); CALCULATED LDLCHOLESTEROL 112 mg/dL (62-129 (CALC)); CARBON DIOXIDE 26 mmol/l (22-30); CHLORIDE 96 mmol/l (95-108); CHOLESTEROL HDL RATIO 4.7 (<4.4 (CALC)); CREATININE 0.7 mg/dL (0.7-1.3); GFR > 60 ML/MIN (>=60 (CALC)); GFR FOR AFR.AMER. > 60 ML/MIN (>=60 (CALC)); HDL CHOLESTEROL 33 mg/dL (>=40); MAGNESIUM 2.1 mg/dL (1.6-2.3); POTASSIUM 4.8 mmol/l (3.5-5.1); SODIUM 129 mmol/l (137-146); TOTAL CHOLESTEROL 154 mg/dl (0-199); TOTAL TRIGLYCERIDES 47 mg/dl (30-149); VLDL CHOLESTROL 9 mg/dl (4-45 (CALC))
--- NOTE | 2021-03-02 07:00 | NUR ---
RECIEVED REPORT FROM WILLY OROPEZA
[2021-03-02 07:24] VITALS: BP 101/60
--- NOTE | 2021-03-02 07:24 | NUR ---
PT SLEEPING IN SEMI FOWLERS POSITION UPON ENTERING ROOM. PT AWAKENS TO SPEECH. PT IS A/O X3. ASSESSMENT AND VITALS COMPLETED. BP 101/60, HR 74, O2 100% ON 2L NC THAT PT IS HOME DEPENDENT ON. RESPIRATIONS ARE EVEN AND UNLABORED.LUNG SOUNDS ARE CLEAR. BOWEL SOUNDS ARE ACTIVE. HEART RHYTHM NORMAL, ST WITH 1 AVB PER ER MONITORING. #20G IN RAC FLUSHED, SITE REMAINS HEALTHY AND PATENT. RADIAL AND PEDAL PULSES STRONG. BLISTER NOTED TO RIGH HEAL. REDDENED COCCYX NOTED. PT COMPLAINS OF 5/10 ABD PAIN. TYLENOL OFFERED. PT REMOVED. PT DENIES OF ANY ADDITIONAL NEEDS AT THSI TIME.ALL SAFETY PRECAUTIONS ARE IN PLACE. ENCOURGAED PT TO CALL FOR ASSISTANCE. WILL CONTINUE TO MONITOR.
--- NOTE | 2021-03-02 08:51 | NUR ---
DR NICKERSON AT BEDSIDE
--- NOTE | 2021-03-02 09:30 | NUR ---
RADIOLOGY AT BEDSIDE
--- NOTE | 2021-03-02 09:34 | NUR ---
MORNING MEDICATIONS OBTAINED. PT REFUSED NICOTINE PATCH.
--- NOTE | 2021-03-02 09:49 | NUR ---
MARBLE CHIP TERRAZZO WORKER CALLED TO ROOM. PT REQUESTING " HAPPY PILL" BECAUSE HE " HAS BEEN GOING TO LONG WITHOUT HIS POT." DR NICKERSON NOTIFIED.
[2021-03-02 10:05] VITALS: BP 98/62
--- NOTE | 2021-03-02 10:32 | NUR ---
RT AT BEDSIDE ADMINISTERING BREATHING TREATMENT.
[2021-03-02] MEDS ORDERED: LEVAQUIN750 M1 PO (11:45)
[2021-03-02] MEDS ORDERED: PREDNISONE10 MG PO (11:52)
--- NOTE | 2021-03-02 12:14 | NUR ---
PT SITTING IN SEMI FOWLERS POSITION EATING LUNCH. REPSIRATIONS AR EVEN AND UNLABORED ON 2L NC. #20G IN RAC INFUSING WITH IV ANITBIOTICS, SITE REMAINS HEALTHY AND PATENT.PT EDUCATED ON D/C AFTER FINISHING ANTIBIOTICS. PT VERBALIZED UNDERSTANDING. PT DENIES OF ANY NEEDS AT THIS TIME. ALL SAFETY PRECAUTIONS ARE IN PLACE. WILL CONTINUE TO MONITOR.
[2021-03-02] MEDS ORDERED: SAW PALMETTO1 CAP PO (12:50)
[2021-03-02] MEDS ORDERED: ARIPIPRAZOLE5 MG PO (12:53)
--- NOTE | 2021-03-02 13:53 | NUR ---
PT EDUCATED ON DISCHARGE INSTRUCTIONS AND NEW MEDICATIONS. PT REQUEST FOR LEVAQUIN TO BE SENT TO [facility] INSTEAD. SCRIPT PRINTED SO PT CAN TAKE SCRIPTS TO ANY PHARMACY. #20G IN RAC REMOVED WITH CATHATER STILL INTACT. TELE MONITORING REMOVED, ER NOTIFIED. DAUGHTER CALL FOR PLATING EQUIPMENT TENDER. ALL SAFETY PRECAUTIONS ARE IN PLACE. WILL CONTINUE TO MONITOR.
--- NOTE | 2021-03-02 13:58 | NUR ---
NO ANSWER FROM DAUGHTER. VOICE MAIL LEFT
--- NOTE | 2021-03-02 14:53 | NUR ---
Discharge instructions given. Patient verbalizes understanding of same. Discharged in stable condition via Wheelchair to Home with staff. All belongings sent with pt. PT D/C HOME VIA WHEELCHAIR IN STABLE CONDITION ACCOMPAINED BY WILLY ARNOLD. ALLBELONGINGS AND D/C INSTRUCTIONS INCLUDING SCRIPS IN PT BAG.
[2021-03-02] MEDS ORDERED: SENOKOT EXTRA17.2 MG PO (17:02)
[2021-03-02] MEDS ORDERED: MIRALAX17 GM/SCOO PO (17:02)
--- NOTE | 2021-03-02 18:37 | NUR ---
DAUGHTER CALLED ASKING ABOUT DC INSTRUCTIONS, PASSCODE PROVIDED.
== END 2021-03-02 14:48 ==
LOC: ED 19:39 → ED-I 22:37 → ED 23:05 → MS2 23:06
PROVIDERS: Family Medicine; Nurse Practitioner; ADMIT Internal Medicine; ATTEND Internal Medicine
DX: J43.9 Emphysema, unspecified (principal); J18.9 Pneumonia, unspecified organism; I11.0 Hypertensive heart disease with heart failure; I50.9 Heart failure, unspecified; E87.1 Hypo-osmolality and hyponatremia; R79.89 Other specified abnormal findings of blood chemistry; E78.5 Hyperlipidemia, unspecified; I25.10 Atherosclerotic heart disease of native coronary artery without angina pectoris; I71.4 Abdominal aortic aneurysm, without rupture; B19.20 Unspecified viral hepatitis C without hepatic coma; F17.210 Nicotine dependence, cigarettes, uncomplicated; K59.09 Other constipation; Z99.81 Dependence on supplemental oxygen; Z92.3 Personal history of irradiation; Z85.810 Personal history of malignant neoplasm of tongue; Z86.711 Personal history of pulmonary embolism; Z95.1 Presence of aortocoronary bypass graft; Z91.19 Patient's noncompliance with other medical treatment and regimen; Z92.21 Personal history of antineoplastic chemotherapy; Z20.822 Contact with and (suspected) exposure to COVID-19
CPT/HCPCS: G0378; Q9967

== ENCOUNTER 2021-12-06 22:17 | Observation (INO) | payer MEDICARE, MEDICAID ==
[~2021-12-06] VITALS: Ht 185.4 cm; Wt 71.0 kg
[~2021-12-06 22:17] MED LIST changes: +LEVAQUIN750 M1 PO; +MIRALAX17 GM/SCOO PO; +SAW PALMETTO1 CAP PO; +SENOKOT EXTRA17.2 MG PO; +TRELEGY ELLIPTA1 AER IN; +VENTOLIN HFA IN
[2021-12-06 23:49] LABS: HEMATOCRIT 43.5 % (39.0-50.0); HEMOGLOBIN 14.3 g/dl (14.0-18.0); IMMATURE GRANULOCYTES 0.3 % (0.0-5.0); MEAN CELL VOLUME 90.2 fL CALC (80.0-100.0); MEAN CORPUSCULAR HGB 29.7 pG CALC (26.0-32.0); MEAN CORPUSCULAR HGB CONC 32.9 g/dL CAL (32.0-36.0); NEUT# 6.32 thou/uL (1.82-7.42); RED BLOOD COUNT 4.82 mill/uL (4.70-6.10); RED CELL DISTRI WIDTH 12.8 % (11.5-15.5)
[2021-12-07] VITALS (43 sets, daily range): BP systolic 83–154; BP diastolic 50–133
[2021-12-07 00:16] LABS: ALBUMIN 4.2 g/dL (3.2-5.0); ALKALINE PHOSPHATASE 118 u/l (38-126); ANION GAP 16 (6-22 (CALC)); BILIRUBIN, TOTAL 1.2 mg/dL (0.0-1.4); BUN 20 mg/dL (8-23); BUN/CREATININE RATIO 20 (12-20 (CALC)); CARBON DIOXIDE 25 mmol/l (22-30); CHLORIDE 98 mmol/l (95-108); GFR > 60 ML/MIN (>=60 (CALC)); GFR FOR AFR.AMER. > 60 ML/MIN (>=60 (CALC)); LIPASE 85 u/l (23-300); POTASSIUM 3.9 mmol/l (3.5-5.1); SGOT/AST 44 u/l (19-48); SODIUM 135 mmol/l (137-146); TOTAL PROTEIN 9.4 g/dL (6.3-8.2)
[2021-12-07 00:20] LABS: ACT PARTIAL THROMBO TIME 26.3 SECONDS (20.0-32.5); INTERNATIONAL NORMALIZED RATIO 1.1 RATIO (0.7-1.3); PROTHROMBIN TIME 11.3 SECONDS (9.0-12.5)
[2021-12-07] MEDS ORDERED: ALBUTERO1 IN (09:49)
[2021-12-08] VITALS (14 sets, daily range): BP systolic 95–116; BP diastolic 51–64
[2021-12-08 05:35] LABS: MEAN CELL VOLUME 90.9 fL CALC (80.0-100.0); MEAN CORPUSCULAR HGB 30.3 pG CALC (26.0-32.0); MEAN CORPUSCULAR HGB CONC 33.3 g/dL CAL (32.0-36.0); RED BLOOD COUNT 3.63 mill/uL (4.70-6.10); RED CELL DISTRI WIDTH 12.9 % (11.5-15.5)
[2021-12-08 05:50] LABS: BUN 23 mg/dL (8-23); BUN/CREATININE RATIO 32 (12-20 (CALC)); CALCULATED LDLCHOLESTEROL 89 mg/dL (62-129 (CALC)); CHLORIDE 103 mmol/l (95-108); CHOLESTEROL HDL RATIO 7.3 (<4.4 (CALC)); CREATININE 0.7 mg/dL (0.7-1.3); GFR > 60 ML/MIN (>=60 (CALC)); GFR FOR AFR.AMER. > 60 ML/MIN (>=60 (CALC)); HDL CHOLESTEROL 17 mg/dL (>=40); MAGNESIUM 2.2 mg/dL (1.6-2.3); POTASSIUM 4.3 mmol/l (3.5-5.1); SODIUM 132 mmol/l (137-146); TOTAL CHOLESTEROL 120 mg/dl (0-199); TOTAL TRIGLYCERIDES 76 mg/dl (30-149); VLDL CHOLESTROL 15 mg/dl (0-38 (CALC))
[2021-12-08 05:51] LABS: ANION GAP 15 (6-22 (CALC)); CARBON DIOXIDE 18 mmol/l (22-30)
[2021-12-09 04:00] VITALS: BP 112/65
[2021-12-09 05:56] LABS: HEMATOCRIT 32.9 % (39.0-50.0); HEMOGLOBIN 10.9 g/dl (14.0-18.0); MEAN CELL VOLUME 91.6 fL CALC (80.0-100.0); MEAN CORPUSCULAR HGB 30.4 pG CALC (26.0-32.0); MEAN CORPUSCULAR HGB CONC 33.1 g/dL CAL (32.0-36.0); RED BLOOD COUNT 3.59 mill/uL (4.70-6.10); RED CELL DISTRI WIDTH 13.1 % (11.5-15.5)
[2021-12-09 06:11] LABS: ANION GAP 11 (6-22 (CALC)); BUN 24 mg/dL (8-23); BUN/CREATININE RATIO 35 (12-20 (CALC)); CHLORIDE 108 mmol/l (95-108); CREATININE 0.7 mg/dL (0.7-1.3); GFR > 60 ML/MIN (>=60 (CALC)); GFR FOR AFR.AMER. > 60 ML/MIN (>=60 (CALC)); MAGNESIUM 2.3 mg/dL (1.6-2.3); POTASSIUM 4.6 mmol/l (3.5-5.1); SODIUM 137 mmol/l (137-146)
[2021-12-09 06:13] LABS: CARBON DIOXIDE 23 mmol/l (22-30)
[2021-12-09 08:21] VITALS: BP 120/64
[2021-12-09 12:00] VITALS: BP 104/52
[2021-12-09 15:50] VITALS: BP 124/58
[2021-12-09 19:01] VITALS: BP 137/69
[2021-12-09 23:41] VITALS: BP 106/58
[2021-12-10 03:59] VITALS: BP 112/59
[2021-12-10 05:28] LABS: HEMATOCRIT 32.4 % (39.0-50.0); HEMOGLOBIN 10.7 g/dl (14.0-18.0); MEAN CELL VOLUME 92.6 fL CALC (80.0-100.0); MEAN CORPUSCULAR HGB 30.6 pG CALC (26.0-32.0); RED BLOOD COUNT 3.5 mill/uL (4.70-6.10); RED CELL DISTRI WIDTH 13.4 % (11.5-15.5)
[2021-12-10 05:55] LABS: ANION GAP 12 (6-22 (CALC)); BUN 22 mg/dL (8-23); BUN/CREATININE RATIO 33 (12-20 (CALC)); CARBON DIOXIDE 23 mmol/l (22-30); CHLORIDE 107 mmol/l (95-108); CREATININE 0.7 mg/dL (0.7-1.3); GFR > 60 ML/MIN (>=60 (CALC)); GFR FOR AFR.AMER. > 60 ML/MIN (>=60 (CALC)); MAGNESIUM 2.3 mg/dL (1.6-2.3); POTASSIUM 3.8 mmol/l (3.5-5.1); SODIUM 138 mmol/l (137-146)
[2021-12-10 11:00] VITALS: BP 106/51
[2021-12-10 16:15] VITALS: BP 110/64
[2021-12-10 19:52] VITALS: BP 108/67
[2021-12-10 21:30] VITALS: BP 117/53
[2021-12-11] VITALS: BP 100/61; BP 110/57
[2021-12-11 04:00] VITALS: BP 105/62
[2021-12-11 05:26] LABS: HEMATOCRIT 32.3 % (39.0-50.0); HEMOGLOBIN 10.6 g/dl (14.0-18.0); MEAN CELL VOLUME 91.8 fL CALC (80.0-100.0); MEAN CORPUSCULAR HGB 30.1 pG CALC (26.0-32.0); MEAN CORPUSCULAR HGB CONC 32.8 g/dL CAL (32.0-36.0); RED BLOOD COUNT 3.52 mill/uL (4.70-6.10); RED CELL DISTRI WIDTH 13.3 % (11.5-15.5)
[2021-12-11 05:53] LABS: ANION GAP 9 (6-22 (CALC)); BUN 14 mg/dL (8-23); BUN/CREATININE RATIO 22 (12-20 (CALC)); CARBON DIOXIDE 26 mmol/l (22-30); CHLORIDE 107 mmol/l (95-108); CREATININE 0.6 mg/dL (0.7-1.3); GFR > 60 ML/MIN (>=60 (CALC)); GFR FOR AFR.AMER. > 60 ML/MIN (>=60 (CALC)); MAGNESIUM 2.3 mg/dL (1.6-2.3); POTASSIUM 3.6 mmol/l (3.5-5.1); SODIUM 138 mmol/l (137-146)
[2021-12-11 11:43] VITALS: BP 96/54
[2021-12-11 15:10] VITALS: BP 117/59
[2021-12-11 19:00] VITALS: BP 116/58
[2021-12-12] VITALS: BP 122/58
[2021-12-12 05:06] VITALS: BP 123/60
[2021-12-12 05:40] LABS: HEMATOCRIT 32.2 % (39.0-50.0); HEMOGLOBIN 10.8 g/dl (14.0-18.0); MEAN CELL VOLUME 91.2 fL CALC (80.0-100.0); MEAN CORPUSCULAR HGB 30.6 pG CALC (26.0-32.0); MEAN CORPUSCULAR HGB CONC 33.5 g/dL CAL (32.0-36.0); RED BLOOD COUNT 3.53 mill/uL (4.70-6.10); RED CELL DISTRI WIDTH 13.4 % (11.5-15.5)
[2021-12-12 06:34] LABS: ANION GAP 8 (6-22 (CALC)); BUN 13 mg/dL (8-23); BUN/CREATININE RATIO 22 (12-20 (CALC)); CARBON DIOXIDE 26 mmol/l (22-30); CHLORIDE 106 mmol/l (95-108); CREATININE 0.6 mg/dL (0.7-1.3); GFR > 60 ML/MIN (>=60 (CALC)); GFR FOR AFR.AMER. > 60 ML/MIN (>=60 (CALC)); MAGNESIUM 2.3 mg/dL (1.6-2.3); POTASSIUM 3.6 mmol/l (3.5-5.1); SODIUM 137 mmol/l (137-146)
[2021-12-12 08:22] VITALS: BP 123/60
[2021-12-12 10:35] VITALS: BP 116/59
[2021-12-12 15:38] VITALS: BP 118/62
[2021-12-12 19:02] VITALS: BP 128/63
[2021-12-13] VITALS: BP 130/64
[2021-12-13 04:00] VITALS: BP 122/58
[2021-12-13 06:02] LABS: HEMATOCRIT 37.4 % (39.0-50.0); HEMOGLOBIN 12.1 g/dl (14.0-18.0); MEAN CELL VOLUME 92.6 fL CALC (80.0-100.0); MEAN CORPUSCULAR HGB CONC 32.4 g/dL CAL (32.0-36.0); RED BLOOD COUNT 4.04 mill/uL (4.70-6.10); RED CELL DISTRI WIDTH 13.3 % (11.5-15.5)
[2021-12-13 06:22] LABS: ANION GAP 13 (6-22 (CALC)); BUN 20 mg/dL (8-23); BUN/CREATININE RATIO 25 (12-20 (CALC)); CARBON DIOXIDE 28 mmol/l (22-30); CHLORIDE 100 mmol/l (95-108); CREATININE 0.8 mg/dL (0.7-1.3); GFR > 60 ML/MIN (>=60 (CALC)); GFR FOR AFR.AMER. > 60 ML/MIN (>=60 (CALC)); MAGNESIUM 2.2 mg/dL (1.6-2.3); POTASSIUM 4.1 mmol/l (3.5-5.1); SODIUM 136 mmol/l (137-146)
[2021-12-13 10:30] VITALS: BP 118/62
[2021-12-13] MEDS ORDERED: DILTIAZEM HCL60 MG PO (10:50)
[2021-12-13] MEDS ORDERED: LEVAQUIN750 M1 PO (10:50)
[2021-12-13] MEDS ORDERED: XARELTO10 MG PO (10:50)
[2021-12-13 19:00] VITALS: BP 117/69
[2021-12-14] VITALS: BP 110/58
== END 2021-12-14 02:20 ==
LOC: ED 22:17 → ED-I 12-07 01:32 → ED 12-07 01:51 → ED-I 12-07 01:52 → ICU 12-07 19:18 → MS2 12-08 23:47
PROVIDERS: Nurse Practitioner; ADMIT Internal Medicine; ATTEND Hospitalist
DX: J43.9 Emphysema, unspecified (principal); I48.19 Other persistent atrial fibrillation; J96.11 Chronic respiratory failure with hypoxia; J69.0 Pneumonitis due to inhalation of food and vomit; I49.3 Ventricular premature depolarization; I25.10 Atherosclerotic heart disease of native coronary artery without angina pectoris; I10 Essential (primary) hypertension; E87.1 Hypo-osmolality and hyponatremia; E87.6 Hypokalemia; E78.5 Hyperlipidemia, unspecified; I65.29 Occlusion and stenosis of unspecified carotid artery; B19.20 Unspecified viral hepatitis C without hepatic coma; R13.10 Dysphagia, unspecified; F17.200 Nicotine dependence, unspecified, uncomplicated; B96.5 Pseudomonas (aeruginosa) (mallei) (pseudomallei) as the cause of diseases classified elsewhere; T41.5X6A Underdosing of therapeutic gases, initial encounter; T50.916A Underdosing of multiple unspecified drugs, medicaments and biological substances, initial encounter; Z91.128 Patient's intentional underdosing of medication regimen for other reason; Z99.81 Dependence on supplemental oxygen; Z87.01 Personal history of pneumonia (recurrent); Z86.711 Personal history of pulmonary embolism; Z95.1 Presence of aortocoronary bypass graft; Z85.810 Personal history of malignant neoplasm of tongue; Z20.822 Contact with and (suspected) exposure to COVID-19
CPT/HCPCS: J1650

== ENCOUNTER 2022-02-26 22:24 | Inpatient (IN) | payer MEDICARE, MEDICAID ==
[~2022-02-26] VITALS: Ht 185.4 cm; Wt 63.0 kg
[~2022-02-26 22:24] MED LIST changes: +ALBUTERO1 IN; +DILTIAZEM HCL60 MG PO; +XARELTO10 MG PO
[2022-02-26 23:06] LABS: IMMATURE GRANULOCYTES 0.3 % (0.0-5.0); MEAN CELL VOLUME 89.2 fL CALC (80.0-100.0); MEAN CORPUSCULAR HGB 28.7 pG CALC (26.0-32.0); MEAN CORPUSCULAR HGB CONC 32.1 g/dL CAL (32.0-36.0); NEUT# 12.05 thou/uL (1.82-7.42); RED BLOOD COUNT 5.3 mill/uL (4.70-6.10); RED CELL DISTRI WIDTH 13.3 % (11.5-15.5)
[2022-02-26 23:14] LABS: HEMATOCRIT 47.3 % (39.0-50.0); HEMOGLOBIN 15.2 g/dl (14.0-18.0)
[2022-02-26 23:20] LABS: ALBUMIN 4.1 g/dL (3.2-5.0); ALKALINE PHOSPHATASE 114 u/l (38-126); ANION GAP 12 (6-22 (CALC)); BILIRUBIN, TOTAL 1.2 mg/dL (0.0-1.4); BUN 25 mg/dL (8-23); BUN/CREATININE RATIO 28 (12-20 (CALC)); CARBON DIOXIDE 24 mmol/l (22-30); CHLORIDE 103 mmol/l (95-108); CREATININE 0.9 mg/dL (0.7-1.3); GFR > 60 ML/MIN (>=60 (CALC)); GFR FOR AFR.AMER. > 60 ML/MIN (>=60 (CALC)); POTASSIUM 4.1 mmol/l (3.5-5.1); SGOT/AST 44 u/l (19-48); SODIUM 134 mmol/l (137-146); TOTAL PROTEIN 8.3 g/dL (6.3-8.2)
[2022-02-26 23:31] LABS: MYOGLOBIN 41 ng/mL (0 - 121)
[2022-02-27 01:51] VITALS: BP 120/66
[2022-02-27 04:05] VITALS: BP 128/68
[2022-02-27 07:30] VITALS: BP 108/62
[2022-02-27 14:33] VITALS: BP 112/66
[2022-02-27 19:23] VITALS: BP 107/70
[2022-02-28 04:49] VITALS: BP 110/57
[2022-02-28 06:17] LABS: MEAN CELL VOLUME 89.4 fL CALC (80.0-100.0); MEAN CORPUSCULAR HGB 29.3 pG CALC (26.0-32.0); MEAN CORPUSCULAR HGB CONC 32.7 g/dL CAL (32.0-36.0); RED BLOOD COUNT 4.44 mill/uL (4.70-6.10); RED CELL DISTRI WIDTH 12.9 % (11.5-15.5)
[2022-02-28 06:24] LABS: HEMATOCRIT 39.7 % (39.0-50.0)
[2022-02-28 06:34] LABS: ANION GAP 19 (6-22 (CALC)); BUN 43 mg/dL (8-23); BUN/CREATININE RATIO 33 (12-20 (CALC)); CARBON DIOXIDE 21 mmol/l (22-30); CHLORIDE 96 mmol/l (95-108); CREATININE 1.3 mg/dL (0.7-1.3); GFR 55 ML/MIN (>=60 (CALC)); GFR FOR AFR.AMER. > 60 ML/MIN (>=60 (CALC)); MAGNESIUM 2.2 mg/dL (1.6-2.3); POTASSIUM 4.8 mmol/l (3.5-5.1); SODIUM 131 mmol/l (137-146)
[2022-02-28 07:38] VITALS: BP 107/56
[2022-02-28 16:02] VITALS: BP 122/77
[2022-02-28 19:22] VITALS: BP 116/57
[2022-03-01 04:50] VITALS: BP 110/58
[2022-03-01 05:57] LABS: HEMATOCRIT 36.6 % (39.0-50.0); HEMOGLOBIN 12.3 g/dl (14.0-18.0); MEAN CELL VOLUME 88.4 fL CALC (80.0-100.0); MEAN CORPUSCULAR HGB 29.7 pG CALC (26.0-32.0); MEAN CORPUSCULAR HGB CONC 33.6 g/dL CAL (32.0-36.0); RED BLOOD COUNT 4.14 mill/uL (4.70-6.10); RED CELL DISTRI WIDTH 13.1 % (11.5-15.5)
[2022-03-01 06:13] LABS: ANION GAP 13 (6-22 (CALC)); BUN 40 mg/dL (8-23); BUN/CREATININE RATIO 46 (12-20 (CALC)); CARBON DIOXIDE 25 mmol/l (22-30); CHLORIDE 101 mmol/l (95-108); CREATININE 0.9 mg/dL (0.7-1.3); GFR > 60 ML/MIN (>=60 (CALC)); GFR FOR AFR.AMER. > 60 ML/MIN (>=60 (CALC)); MAGNESIUM 2.4 mg/dL (1.6-2.3); POTASSIUM 4.3 mmol/l (3.5-5.1); SODIUM 134 mmol/l (137-146)
[2022-03-01 07:34] VITALS: BP 104/52
[2022-03-01 14:02] VITALS: BP 109/55
[2022-03-01 14:09] VITALS: BP 105/66
[2022-03-01] MEDS ORDERED: LEVOFLOXACIN250 M1 PO (15:11)
[2022-03-01] MEDS ORDERED: MEDDOSEPAK PO (15:12)
== END 2022-03-01 19:05 | DRG 191 ==
LOC: ED 22:24 → ED-I 23:07 → ED 23:47 → MS2 23:47
PROVIDERS: Family Medicine; ADMIT Internal Medicine; ATTEND Hospitalist
DX: J43.9 Emphysema, unspecified (principal); J96.11 Chronic respiratory failure with hypoxia; I11.0 Hypertensive heart disease with heart failure; I50.9 Heart failure, unspecified; E78.5 Hyperlipidemia, unspecified; I25.10 Atherosclerotic heart disease of native coronary artery without angina pectoris; I71.4 Abdominal aortic aneurysm, without rupture; B19.20 Unspecified viral hepatitis C without hepatic coma; F17.210 Nicotine dependence, cigarettes, uncomplicated; Z95.1 Presence of aortocoronary bypass graft; Z99.81 Dependence on supplemental oxygen; Z90.49 Acquired absence of other specified parts of digestive tract; Z85.819 Personal history of malignant neoplasm of unspecified site of lip, oral cavity, and pharynx; Z86.711 Personal history of pulmonary embolism; Z87.01 Personal history of pneumonia (recurrent); Z20.822 Contact with and (suspected) exposure to COVID-19
CPT/HCPCS: J1650

== ENCOUNTER 2022-03-22 21:12 | Emergency (ER) | payer MEDICARE, MEDICAID ==
[~2022-03-22] VITALS: Ht 185.4 cm; Wt 79.0 kg
[~2022-03-22 21:12] MED LIST changes: +LEVOFLOXACIN250 M1 PO
[2022-03-22 21:31] VITALS: BP 120/72
[2022-03-22 21:50] LABS: IMMATURE GRANULOCYTES 3.7 % (0.0-5.0); MEAN CORPUSCULAR HGB 28.8 pG CALC (26.0-32.0); NEUT# 4.83 thou/uL (1.82-7.42); RED BLOOD COUNT 5.17 mill/uL (4.70-6.10); RED CELL DISTRI WIDTH 13.2 % (11.5-15.5)
[2022-03-22 21:53] VITALS: BP 113/66
[2022-03-22 21:55] LABS: HEMATOCRIT 48.1 % (39.0-50.0); HEMOGLOBIN 14.9 g/dl (14.0-18.0)
[2022-03-22 22:00] VITALS: BP 101/73
[2022-03-22 22:12] LABS: ALKALINE PHOSPHATASE 125 u/l (38-126); BUN 27 mg/dL (8-23); BUN/CREATININE RATIO 29 (12-20 (CALC)); CHLORIDE 101 mmol/l (95-108); CREATININE 0.9 mg/dL (0.7-1.3); GFR FOR AFR.AMER. > 60 ML/MIN (>=60 (CALC)); GFR OTHER RACES > 60 ML/MIN (>=60 (CALC)); POTASSIUM 4.3 mmol/l (3.5-5.1); SGOT/AST 33 u/l (19-48); TOTAL PROTEIN 8.3 g/dL (6.3-8.2)
[2022-03-22 22:13] LABS: ANION GAP 12 (6-22 (CALC)); BILIRUBIN, TOTAL 0.3 mg/dL (0.0-1.4); CARBON DIOXIDE 32 mmol/l (22-30); SODIUM 141 mmol/l (137-146)
[2022-03-22 22:31] VITALS: BP 121/69
[2022-03-22 23:00] VITALS: BP 113/60
[2022-03-22] MEDS ORDERED: TYLENOL # 31 TA1 PO (23:11)
[2022-03-22] MEDS ORDERED: VIBRAMYCIN100 M2 PO (23:11)
[2022-03-22 23:30] VITALS: BP 120/62
[2022-03-23] VITALS: BP 103/70
== END 2022-03-23 00:40 | disposition home or self-care (01) ==
LOC: ED 21:12
PROVIDERS: Family Medicine
DX: T20.14XA Burn of first degree of nose (septum), initial encounter (principal); J44.1 Chronic obstructive pulmonary disease with (acute) exacerbation; I50.9 Heart failure, unspecified; E78.5 Hyperlipidemia, unspecified; B19.20 Unspecified viral hepatitis C without hepatic coma; X04.XXXA Exposure to ignition of highly flammable material, initial encounter; Y93.89 Activity, other specified; Z99.81 Dependence on supplemental oxygen; Z87.891 Personal history of nicotine dependence

== ENCOUNTER 2022-04-19 12:58 | Observation (INO) | payer MEDICARE, MEDICAID ==
[~2022-04-19] VITALS: Ht 185.4 cm; Wt 77.0 kg
[2022-04-19] VITALS (19 sets, daily range): BP systolic 92–128; BP diastolic 53–79
[~2022-04-19 12:58] MED LIST changes: +TYLENOL # 31 TA1 PO; +VIBRAMYCIN100 M2 PO
--- NOTE | 2022-04-19 12:58 | NUR ---
PT TO ROOM VIA EMS STRETCHER; DR JO AT BEDSIDE; PT IMMEDIATELY TO CT
--- NOTE | 2022-04-19 13:03 | NUR ---
PT TO ROOM VIA WC
[2022-04-19 13:33] LABS: HEMATOCRIT 45.5 % (39.0-50.0); HEMOGLOBIN 14.6 g/dl (14.0-18.0); IMMATURE GRANULOCYTES 0.4 % (0.0-5.0); MEAN CORPUSCULAR HGB 28.6 pG CALC (26.0-32.0); MEAN CORPUSCULAR HGB CONC 32.1 g/dL CAL (32.0-36.0); NEUT# 7.71 thou/uL (1.82-7.42); RED BLOOD COUNT 5.11 mill/uL (4.70-6.10); RED CELL DISTRI WIDTH 13.3 % (11.5-15.5)
[2022-04-19 13:55] LABS: ALBUMIN 4.1 g/dL (3.2-5.0); ALKALINE PHOSPHATASE 113 u/l (38-126); ANION GAP 13 (6-22 (CALC)); BILIRUBIN, TOTAL 0.7 mg/dL (0.0-1.4); BUN 19 mg/dL (8-23); BUN/CREATININE RATIO 19 (12-20 (CALC)); CARBON DIOXIDE 24 mmol/l (22-30); CHLORIDE 103 mmol/l (95-108); GFR FOR AFR.AMER. > 60 ML/MIN (>=60 (CALC)); GFR OTHER RACES > 60 ML/MIN (>=60 (CALC)); POTASSIUM 4.3 mmol/l (3.5-5.1); SGOT/AST 60 u/l (19-48); SODIUM 136 mmol/l (137-146); TOTAL PROTEIN 8.6 g/dL (6.3-8.2)
[2022-04-19] MEDS ORDERED: TRELEGY ELLIPTA1 AE1 (14:54)
--- NOTE | 2022-04-19 17:12 | NUR ---
PT XFERED TO RM 265. PT STABLE IN NO ACUTE DISTRESS
--- NOTE | 2022-04-19 17:13 | NUR ---
PT ARRIVED ON UNIT AT 1656 TRANSPORTED VIA STRETCHER AND TRANSFERRED TO BED. ALERT AND ORIENTED X 3, C/O R. LUNG PAIN @ 02/28, NECK PAIN @ 09/30 AND R. SHOULDER PAIN @ 07/31 STATING THIS IS THE FIRST TIME HE HAS HAD THE SHOULDER PAIN. O2 @ 4L VIA NC IN PLACE AND PT HAS HACKING NON-PRODUCTIVE COUGH, TELE MONITOR IN PLACE, ORIENTED TO ROOM AND CALL ADKINS.
--- NOTE | 2022-04-19 19:14 | NUR ---
REPORT RECEIVED FROM Julio WHITLOCK RN
--- NOTE | 2022-04-19 20:15 | NUR ---
PATIENT ASSESMENT COMPLETED AT THIS TIME. PATIENT ALERT AND ORIENTED X3. NORMAL HEART SOUNDS, CLEAR LUNG SOUNDS BILATERALLY. TELE IN PLACE. #20 IN LFA FLUSHED AND PATENT.OXYGEN AT 4L, PATIENT 2L HOME DEPENDENT ORIENTED TO CALL LIGHT SYSTEM, CALL LIGHT AND BEDSIDE TABLE WITHIN REACH.
--- NOTE | 2022-04-19 21:55 | NUR ---
MEDICATIONS ADMINISTERED PER EMAR, SEE EMAR
[2022-04-20] VITALS (9 sets, daily range): BP systolic 98–127; BP diastolic 54–72
--- NOTE | 2022-04-20 | NUR ---
PATIENT RESTING COMOFRTBALY, REQUESTING PAIN MEDICATION. ORDER RECEIVED FROM Katya SMITH APRN. PATIENT SLEEPING, STATES HE DOES NOT WANT MEDICATION AT THIS TIME.
--- NOTE | 2022-04-20 03:45 | NUR ---
PATIENT MEDICATED FOR PAIN, STATES HE HAS PAIN IN HIS NECK AND SHOULDER AREA. 07/31.
[2022-04-20 05:39] LABS: IMMATURE GRANULOCYTES 0.4 % (0.0-5.0); MEAN CELL VOLUME 90.8 fL CALC (80.0-100.0); MEAN CORPUSCULAR HGB 29.2 pG CALC (26.0-32.0); MEAN CORPUSCULAR HGB CONC 32.2 g/dL CAL (32.0-36.0); NEUT# 3.93 thou/uL (1.82-7.42); RED BLOOD COUNT 4.11 mill/uL (4.70-6.10); RED CELL DISTRI WIDTH 12.9 % (11.5-15.5)
[2022-04-20 05:42] LABS: HEMATOCRIT 37.3 % (39.0-50.0)
[2022-04-20 05:45] LABS: ALBUMIN 3.3 g/dL (3.2-5.0); ALKALINE PHOSPHATASE 88 u/l (38-126); ANION GAP 12 (6-22 (CALC)); BUN 18 mg/dL (8-23); BUN/CREATININE RATIO 24 (12-20 (CALC)); CARBON DIOXIDE 25 mmol/l (22-30); CHLORIDE 105 mmol/l (95-108); CREATININE 0.8 mg/dL (0.7-1.3); GFR FOR AFR.AMER. > 60 ML/MIN (>=60 (CALC)); GFR OTHER RACES > 60 ML/MIN (>=60 (CALC)); MAGNESIUM 2.2 mg/dL (1.6-2.3); POTASSIUM 5.1 mmol/l (3.5-5.1); SGOT/AST 35 u/l (19-48); SODIUM 136 mmol/l (137-146); TOTAL PROTEIN 6.9 g/dL (6.3-8.2)
[2022-04-20 05:47] LABS: BILIRUBIN, TOTAL 0.3 mg/dL (0.0-1.4)
--- NOTE | 2022-04-20 07:00 | NUR ---
RECIEVED REPORT FROM WILLY SARGENT
--- NOTE | 2022-04-20 08:00 | NUR ---
PT RESTING IN SEMI FOWLERS POSITION. PT IS A/OX3. ASSESSMENT COMPLETED. RESPRATIONS ARE EVEN AND UNLABORED ON 2L NC, 97%. LUNG SOUNDS COARSE. BOWEL SOUNDS ACTIVE. HEART RHYTHM NORMAL WITH TELE IN PLACE. #20G LFA INFUSING WITH IVF PER ORDER, SITE PATENT. SKIN INTACT. PT C/O OF 10/10 NECK PAIN, PT TO BE MEDICATED PER EMAR. PT DENIES OF ANY ADDITIONAL NEEDS. ALL SAFTEY PRECAUTIONS ARE IN PLACE WITH CALL LIGHT IN REACH.
--- NOTE | 2022-04-20 08:28 | NUR ---
RT AT BEDSIDE FOR BREATHING TREATMENT
--- NOTE | 2022-04-20 08:47 | NUR ---
04/20/22. 8:45 AM. Pt deferred PT eval at this time stating he was too tired to participate. PT will reattempt when available.
--- NOTE | 2022-04-20 10:58 | NUR ---
PT TRANSPORTED FOR [facility] VIA WHEELCHAIR ACCOMPAINED BY SPEECH CARLO IN STABLE CONDITION
--- NOTE | 2022-04-20 12:30 | NUR ---
PT ARRIVED BACK TO [facility] ROOM 265. RESPIRATIONS EVEN AND UNLABORED ON 2L NC. #20G LFA INFUSING WITH IVF PER ORDER, SITE PATENT. TELE MONITORING IN PLACE. PT DENIES OF ANY ADDITIONAL NEEDS. ALL SAFTEY PRECAUTIONS ARE IN PLACE WITH CALL LIGHT IN REACH
--- NOTE | 2022-04-20 13:53 | NUR ---
SPEECH PATHOLOGY- MBSS COMPLETED. PT PRESENTS WITH ASPIRATION OF THIN LIQUIDS CONSISTENTLY W/O REACTIVE COUGH. WET PROCESS TECHNICIAN RECOMMENDED NECTAR THICK LIQUIDS, HOWEVER PT IS REPORTING INTENTIONAL DEHYDRATION WITH THICKENED LIQUIDS. WET PROCESS TECHNICIAN COMMUNICATED TO REPAIRER RESISTANCE WELDING MACHINES, ASSIGNED RN, AND [facility] PRESIDENT REGARDING CURRENT RECOMMENDATIONS. WET PROCESS TECHNICIAN RECOMMENDS THIN LIQUIDS -WATER- ONLY AND PUREED SOLIDS WITH ORAL CARE AT LEAST 3X/DAY TO REDUCE RISK OF INFECTION. DECISION BASED OFF OF ELISE FREE WATER PROTOCOL.
--- NOTE | 2022-04-20 15:43 | NUR ---
PT RESTING IN SEMI FOWLERS POSITION. RESPIRATIONS EVEN AND UNLABORED ON ROOM AIR. #20G LFA INFUSING WITH IVF PER ORDER, SITE PATENT. TELE MONITORING IN PLACE. PT DENIES OF ANY PAINS OR DISCOMFORTS AT THIS TIME. ALL SAFTEY PRECAUTIONS ARE IN PLACE WITH CALL LIGHT IN REACH
--- NOTE | 2022-04-20 16:53 | NUR ---
Patient was asked if they had a bowl movement. Patient stated no.
--- NOTE | 2022-04-20 19:20 | NUR ---
REPORT RECEIVED FROM Katya PANCHAL LPN
--- NOTE | 2022-04-20 20:30 | NUR ---
PATIENT ASESSMENT COMPLETED A THIS TIME. 2 L VIA NASAL CANNULA, TELE IN PLACE READING SR 89 WITH PVCS. #20 IN LEFT AC INFUSING PER EMAR. PATIENT PERFORMED MOUTH CARE A THIS TIME. CALL LIGHT AND BEDSIDE TBALE WITHIN REACH.
--- NOTE | 2022-04-20 23:00 | NUR ---
PATIENT RETING COMFORTABLY AT THIS TIME. DENIES ANY CURRENT NEEDS, CALL LIGHT AND BEDSIDE TABLE WITHN REACH.
[2022-04-21 00:03] VITALS: BP 121/45
[2022-04-21 00:38] VITALS: BP 121/45
--- NOTE | 2022-04-21 04:30 | NUR ---
PATIENT SLEEPING SOUNDLY, AWOKEN BY WRITTER. DENIES ANY CURRENT NEEDS.PROVIDED WITH SWABS TO PERFORM MOUTH CARE. CALL LIGHT AND BEDSIDE TABLE WITHIN REACH.
[2022-04-21 04:37] VITALS: BP 103/47
[2022-04-21 05:20] VITALS: BP 103/47
[2022-04-21 05:39] LABS: HEMATOCRIT 32.5 % (39.0-50.0); HEMOGLOBIN 10.5 g/dl (14.0-18.0); IMMATURE GRANULOCYTES 0.3 % (0.0-5.0); MEAN CELL VOLUME 90.5 fL CALC (80.0-100.0); MEAN CORPUSCULAR HGB 29.2 pG CALC (26.0-32.0); MEAN CORPUSCULAR HGB CONC 32.3 g/dL CAL (32.0-36.0); NEUT# 8.78 thou/uL (1.82-7.42); RED BLOOD COUNT 3.59 mill/uL (4.70-6.10); RED CELL DISTRI WIDTH 13.3 % (11.5-15.5)
[2022-04-21 06:09] LABS: ALKALINE PHOSPHATASE 78 u/l (38-126); ANION GAP 10 (6-22 (CALC)); BUN 22 mg/dL (8-23); BUN/CREATININE RATIO 23 (12-20 (CALC)); CARBON DIOXIDE 25 mmol/l (22-30); CHLORIDE 107 mmol/l (95-108); GFR FOR AFR.AMER. > 60 ML/MIN (>=60 (CALC)); GFR OTHER RACES > 60 ML/MIN (>=60 (CALC)); MAGNESIUM 2.3 mg/dL (1.6-2.3); SGOT/AST 23 u/l (19-48); SODIUM 137 mmol/l (137-146); TOTAL PROTEIN 6.2 g/dL (6.3-8.2)
[2022-04-21 06:10] LABS: BILIRUBIN, TOTAL 0.1 mg/dL (0.0-1.4)
--- NOTE | 2022-04-21 07:00 | NUR ---
RECIEVED REPORT FROM WILLY SARGENT
[2022-04-21 07:26] VITALS: BP 113/42
--- NOTE | 2022-04-21 07:45 | NUR ---
PT RESTING IN SEMI FOLWERS POSITION. PT A/OX3. ASSESSMENT AND VITALS COMPLETED. RESPIRATIONS EVEN AND UNLABORED ON 2L NC, HOME DEPENDENT. COUGH NOTED, PRODUCTIVE AT TIMES. LUNG SOUNDS DIMINISHED. BOWEL SOUNDS ACTIVE. HEART RHYTHM NORMAL WITH TELE IN PLACE. #20G LFA INFUSING WITH IVF PER ORDER, SITE PATENT. SKIN INTACT. PT DENIES OF ANY PAINS OR DISCOMFORTS AT THIS TIME. ALL SAFTEY PRECAUTIONS ARE IN PLACE WITH CALL LIGHT IN REACH.
[2022-04-21 10:01] VITALS: BP 106/56
--- NOTE | 2022-04-21 11:02 | NUR ---
Patient presents eating breakfast- no problems with bed mobility or transfers. He refuses a FWW but actually has decent balance and demonstrates no LOB in room. He is limited by dyspnea at 2 plus with ambulation greater than 10 feet. Am Pac is unchanged from eval. He would do well to go to ECF but refuses - in which xase he would also do well to have HH Our plan at this pooint is to increase his activity to tolerance, emphasis PLB and breath contral and strengthen as tolerated
--- NOTE | 2022-04-21 12:07 | NUR ---
PT SLEEPING IN SEMI FOWLERS POSITION. RESPIRATIONS ARE EVEN AND UNLABORED ON 2L NC. TELE MONITORING IN PLACE. #22G LFA REMAINS INFUSING WITH IVF PER ORDER. NO SIGNS OF ANY PAINS OR DISCOMFORTS AT THIS TIME. ALL SAFTEY PRECAUTIONS ARE IN PLACE WITH CALL LIGHT IN REACH.
[2022-04-21] MEDS ORDERED: ZITHROMAX250 MG PO (13:12)
[2022-04-21] MEDS ORDERED: PREDNISONE10 MG PO (13:15)
--- NOTE | 2022-04-21 13:44 | NUR ---
SPEECH PATHOLOGY-- PT SEEN FOR ST INTERVENTION TARGETING OROPHARYNGEAL DYSPHAGIA FOLLOWING MBSS. PT WITH APPROPRIATE NOTES WRITTEN ON THE INFORMATION BOARD REGARDING ORAL CARE 3X PER DAY AROUND MEAL TIMES WELL WATER ONLY. PT COMPLETED SUPERSUPRAGLOTTIC SWALLOW X5 W/O S/S OF ASPIRATION, HOWEVER PT OBSERVED WITH ASPIRATION W/O REACTIVE COUGH RESPONSE. PT PRESENTED WITH MULTIPLE COUGH RESPONSES FOLLOWING CUED COUGH WITH EXPECTORATION OF SPUTUM.
[2022-04-21] MEDS ORDERED: LEVAQUIN750 M1 PO (13:59)
--- NOTE | 2022-04-21 14:11 | NUR ---
PT EDUCATEDON DC INSTRUCTIONS AND NEW MEDICATIONS. PT VERBALIZED UNDERSTANDING. IV REMOVED WITH CATH INTACT. TELE REMOVED, ER INFORMED. TAXI TO BE PROVIDED FOR TANSPORT.
--- NOTE | 2022-04-21 14:45 | NUR ---
Discharge instructions given. Patient verbalizes understanding of same. Discharged in stable condition via Wheelchair to Home with staff. All belongings sent with pt.
== END 2022-04-21 14:43 | disposition home health service (06) ==
LOC: ED 12:58 → ED-I 14:28 → ED 14:43 → MS2 14:44
PROVIDERS: Family Medicine; Nurse Practitioner; ADMIT Internal Medicine; ATTEND Internal Medicine
DX: J44.1 Chronic obstructive pulmonary disease with (acute) exacerbation (principal); R09.02 Hypoxemia; B37.0 Candidal stomatitis; R13.10 Dysphagia, unspecified; I11.0 Hypertensive heart disease with heart failure; I50.9 Heart failure, unspecified; I25.10 Atherosclerotic heart disease of native coronary artery without angina pectoris; E78.5 Hyperlipidemia, unspecified; B19.20 Unspecified viral hepatitis C without hepatic coma; F17.210 Nicotine dependence, cigarettes, uncomplicated; Z99.81 Dependence on supplemental oxygen; Z85.810 Personal history of malignant neoplasm of tongue; Z86.711 Personal history of pulmonary embolism; Z95.1 Presence of aortocoronary bypass graft; Z90.49 Acquired absence of other specified parts of digestive tract; Z20.822 Contact with and (suspected) exposure to COVID-19
CPT/HCPCS: J1650

== ENCOUNTER 2022-05-05 13:00 | Observation (INO) | payer MEDICARE, MEDICAID ==
[~2022-05-05] VITALS: Ht 185.4 cm; Wt 79.0 kg
[~2022-05-05 13:00] MED LIST changes: +TRELEGY ELLIPTA1 AE1
--- NOTE | 2022-05-05 13:25 | NUR ---
PT ESCORTED VIA WHEELCHAIR FROM VEHICLE FOR EVAL OF COPB EXAC PER DAUGHTER AND INCREASING SOB
[2022-05-05 14:08] LABS: IMMATURE GRANULOCYTES 0.3 % (0.0-5.0); MEAN CELL VOLUME 87.4 fL CALC (80.0-100.0); MEAN CORPUSCULAR HGB 28.4 pG CALC (26.0-32.0); MEAN CORPUSCULAR HGB CONC 32.5 g/dL CAL (32.0-36.0); NEUT# 4.3 thou/uL (1.82-7.42); RED BLOOD COUNT 4.93 mill/uL (4.70-6.10); RED CELL DISTRI WIDTH 13.3 % (11.5-15.5)
[2022-05-05 14:11] LABS: HEMATOCRIT 43.1 % (39.0-50.0)
[2022-05-05 14:22] LABS: ALKALINE PHOSPHATASE 104 u/l (38-126); BUN 24 mg/dL (8-23); BUN/CREATININE RATIO 23 (12-20 (CALC)); CARBON DIOXIDE 26 mmol/l (22-30); CHLORIDE 104 mmol/l (95-108); GFR FOR AFR.AMER. > 60 ML/MIN (>=60 (CALC)); GFR OTHER RACES > 60 ML/MIN (>=60 (CALC)); SODIUM 138 mmol/l (137-146)
[2022-05-05 14:23] LABS: ANION GAP 12 (6-22 (CALC)); BILIRUBIN, TOTAL 0.9 mg/dL (0.0-1.4); POTASSIUM 3.9 mmol/l (3.5-5.1); SGOT/AST 41 u/l (19-48); TOTAL PROTEIN 8.1 g/dL (6.3-8.2)
--- NOTE | 2022-05-05 18:39 | NUR ---
Reassessment of patient completed. No distress noted.
[2022-05-05 18:53] VITALS: BP 122/74
--- NOTE | 2022-05-05 18:59 | NUR ---
BEDSIDE REPORT GIVEN TO NIGHTSHIFT RN
[2022-05-05 23:35] VITALS: BP 101/64
[2022-05-06] VITALS (7 sets, daily range): BP systolic 101–119; BP diastolic 56–64
--- NOTE | 2022-05-06 05:16 | NUR ---
PT CAME TO FLOOR FROM ED, A/O X4, ADMISSION AND ASSESSMENT DONE, NO OVERNIGHT EVENTS.
[2022-05-06 05:41] LABS: MEAN CELL VOLUME 86.9 fL CALC (80.0-100.0); MEAN CORPUSCULAR HGB 28.9 pG CALC (26.0-32.0); MEAN CORPUSCULAR HGB CONC 33.2 g/dL CAL (32.0-36.0); RED BLOOD COUNT 4.05 mill/uL (4.70-6.10); RED CELL DISTRI WIDTH 12.9 % (11.5-15.5)
[2022-05-06 05:46] LABS: HEMATOCRIT 35.2 % (39.0-50.0); HEMOGLOBIN 11.7 g/dl (14.0-18.0)
[2022-05-06 06:03] LABS: ANION GAP 12 (6-22 (CALC)); BUN 37 mg/dL (8-23); BUN/CREATININE RATIO 33 (12-20 (CALC)); CARBON DIOXIDE 27 mmol/l (22-30); CHLORIDE 102 mmol/l (95-108); CREATININE 1.1 mg/dL (0.7-1.3); GFR FOR AFR.AMER. > 60 ML/MIN (>=60 (CALC)); GFR OTHER RACES > 60 ML/MIN (>=60 (CALC)); MAGNESIUM 2.4 mg/dL (1.6-2.3); SODIUM 136 mmol/l (137-146)
[2022-05-06 06:09] LABS: POTASSIUM 4.9 mmol/l (3.5-5.1)
--- NOTE | 2022-05-06 07:00 | NUR ---
RECIEVED REPORT FROM MARKET MAKER
--- NOTE | 2022-05-06 08:48 | NUR ---
PT RESTING IN HIGH FOWLERS POSITION. A/OX3 ASSESSMENT AND VS COMPLETED. HEART RHYTHM WITH TELE IN PLACE. RESPIRATIONS EVEN AND UNLABORED. WITH OXYGEN 3L . BOWEL SOUNDS HYPOACTIVE. PT C/O PAIN IN NECK. MEDICATED PER EMAR. PT DENIES ADDITIONAL NEEDS AT THE TIME ALL SAFETY PRECAUTIONS IN PLACE.
--- NOTE | 2022-05-06 16:45 | NUR ---
PT RESTING IN HIGH FOWLERS PT ORIENTED. PT DENIES ADDITIONAL NEEDS PT TELE IN PLACE. ALL SAFETY PRECAUTIONS IN PLACE.
--- NOTE | 2022-05-06 19:30 | NUR ---
SITTING UP IN BED WITH O2 VIA NASAL CANNULA IN PLACE AT 3LPM. AWAKE ALERT AND ORIENTEDX3. FAMILY AT BEDSIDE TO VISIT. CALL LIGHT IN REACH. WILL CONT TO MONITOR.
--- NOTE | 2022-05-06 20:30 | NUR ---
SITTING UP IN BED-C/O CHRONIC NECK PAIN. MEDICATED WITH MOTRIN 800MG PO FOR 10 PAIN. STILL WITH O2 IN PLACE. CHRONIC COUGH-OCC PRODUCTIVE WITH SALDAÑA SECREATIONS. DIMINISHED BS THROUGHOUT-OCC EXP WHEEZE. VOIDING QS YELLOW URINE. STATES THAT HE DID HAVE BM THIS MORNING. NO PERIPHERAL EDEMA-PULSES PALPABLE. SAFETY PRECAUTIONS REINFORCED. CALL LIGHT IN REACH. WILL CONT TO MONITOR.
--- NOTE | 2022-05-06 21:41 | NUR ---
PATIENT RESTING IN BED-NO RELIEF FROM MOTRIN GIVEN EARLIER-STILL 07/31 NECK PAIN. MEDICATED WITH TORADOL 15MG IVP VIA LEFT FOREARM. SAFETY PRECAUTIONS REINFORCED. CALL LIGHT IN REACH. WILL CONT TO MONITOR.
--- NOTE | 2022-05-06 22:22 | NUR ---
SITTING UP IN BED WITH O2 VIA NASAL CANNULA IN PLACE. NECK PAIN IS NOW 7/10 PAIN SCALE. NO OTHER CONCERNS AT THIS TIME. CALL LIGHT IN REACH. WILL CONT TO MONITOR.
[2022-05-07] VITALS (7 sets, daily range): BP systolic 104–134; BP diastolic 53–82
--- NOTE | 2022-05-07 01:30 | NUR ---
PATIENT RESTING IN BED WITH O2 VIA NASAL CANNULA IN PLACE AT 3LPM. TELE MONITOR IN PLACE. NO COMPLAINTS AT THIS TIME. CALL LIGHT IN REACH. WILL CONT TO MONITOR.
--- NOTE | 2022-05-07 04:30 | NUR ---
SITTING IN BED AT THIS TIME WITH O2 VIA NASAL CANNULA IN PLACE. EYES ARE CLOSED. RESP ARE EVEN AND UNLABORED. TELE MONITOR IN PLACE WITH LAST READING SR-65 PVC'S AND 1 DEGREE AVB. CALL LIGHT IN REACH. WILLL CONT TO MONITOR.
[2022-05-07 05:37] LABS: HEMATOCRIT 32.5 % (39.0-50.0); HEMOGLOBIN 10.7 g/dl (14.0-18.0); MEAN CELL VOLUME 87.8 fL CALC (80.0-100.0); MEAN CORPUSCULAR HGB 28.9 pG CALC (26.0-32.0); MEAN CORPUSCULAR HGB CONC 32.9 g/dL CAL (32.0-36.0); RED BLOOD COUNT 3.7 mill/uL (4.70-6.10)
[2022-05-07 05:57] LABS: ANION GAP 11 (6-22 (CALC)); BUN 40 mg/dL (8-23); BUN/CREATININE RATIO 34 (12-20 (CALC)); CARBON DIOXIDE 26 mmol/l (22-30); CHLORIDE 103 mmol/l (95-108); CREATININE 1.2 mg/dL (0.7-1.3); GFR FOR AFR.AMER. > 60 ML/MIN (>=60 (CALC)); GFR OTHER RACES 60 ML/MIN (>=60 (CALC)); MAGNESIUM 2.5 mg/dL (1.6-2.3); POTASSIUM 4.4 mmol/l (3.5-5.1); SODIUM 135 mmol/l (137-146)
--- NOTE | 2022-05-07 07:00 | NUR ---
REPORT RECIEVED FROM DIRECTOR RECREATION CENTER
--- NOTE | 2022-05-07 08:40 | NUR ---
PT RESTING IN HIGH FOWLERS POSITION. A/OX3 ASSESSMENT AND VITAL SIGNS COMPLETED. HEART RHYHTM NORMAL ON TELE. RESPIRATIONS COARSE.PRODUCTIVE COUGH . BOWEL SOUNDS ACTIVE. IV SITE PATENT. S.L . SKIN INTACT. NO EDEMA ON 3L NASAL CANNULA . PT C/O PAIN IN NECK. PT MEDICATED PER EMAR. ALL SAFETY PRECAUTIONS IN PLACE WITH CALL LIGHT IN REACH.
--- NOTE | 2022-05-07 12:05 | NUR ---
PT RESTING IN HIGH FOWLERS POSITION. PT DENIES ADDITIONAL NEEDS ALL SAFETY PRECAUTIONS IN PLACE.
--- NOTE | 2022-05-07 16:01 | NUR ---
PT RESTING IN HIGH FOWLERS POSITION. PT DENIES ADDITIONAL NEEDS AT THE MOMENT. TELE IN PLACE OXYGEN IN PLACE. SAFETY PRECAUTIONS IN PLACE WITH CALL LIGHT IN REACH.
--- NOTE | 2022-05-07 19:40 | NUR ---
PATIENT SITTING UP IN BED WITH O2 VIA NASAL CANNULA IN PLACE AT 3LPM-O2 SAT IS 97%. STILL SOB WITH LITTLE OR NO EXHERSION. OCC PRODUCTIVE COUGH WITH SALDAÑA SECREATIONS. TELE MONITOR IN PLACE WITH LAST READING SR-80'S WITH PVC'S, 1ST DEGREE AVB. SALINE LOCK TO LEFT FOREARM INTACT AND HEALTHY AT THIS TIME. C/O CHRONIC NECK PAIN AND MEDICATED WITH TORADOL 15MG IVP ORDERED FOR 10/10 PAIN SCALE. LUNGS ARE DIMINISHED THROUGHOUT. ABD IS SOFT WITH BS+. LAST BM WAS YESTERDAY 05/06, VOIDING CLEAR YELLOW URINE IN URINAL. NO PERIPHERAL EDEMA, PULSES ARE PALPABLE. SAFETY PRECAUTIONS REINFORCED. CALL LIGHT IN REACH. WILL CONT TO MONITOR.
[2022-05-08] VITALS (10 sets, daily range): BP systolic 106–130; BP diastolic 52–76
--- NOTE | 2022-05-08 00:25 | NUR ---
PATIENT SITTING UP IN BED WITH O2 IN PLACE-O2 SAT IS 97%. EATING SNACK WITH NO COMPLAINTS AT THIS TIME. VOIDED 300CC OF CLEAR YELLOW URINE IN URINAL. TELE MONITOR IN PLACE. CALL LIGHT IN REACH. WILL CONT TO MONITOR.
--- NOTE | 2022-05-08 04:34 | NUR ---
RESTING IN BED AT THIS TIME WITH O2 VIA NASAL CANNULA IN PLACE. TELE MONITOR IN PLACE WITH LAST READING SR-60 WITH PVC'S AND 1ST DEGREE AVB. SALINE LOCK TO LEFT FOREARM INTACT. CALL LIGHT IN REACH. WILL CONT TO MONITOR.
[2022-05-08 05:59] LABS: HEMATOCRIT 30.7 % (39.0-50.0); MEAN CELL VOLUME 88.7 fL CALC (80.0-100.0); MEAN CORPUSCULAR HGB 28.9 pG CALC (26.0-32.0); MEAN CORPUSCULAR HGB CONC 32.6 g/dL CAL (32.0-36.0); RED BLOOD COUNT 3.46 mill/uL (4.70-6.10); RED CELL DISTRI WIDTH 13.5 % (11.5-15.5)
[2022-05-08 06:09] LABS: ANION GAP 7 (6-22 (CALC)); BUN 27 mg/dL (8-23); BUN/CREATININE RATIO 32 (12-20 (CALC)); CARBON DIOXIDE 28 mmol/l (22-30); CHLORIDE 107 mmol/l (95-108); CREATININE 0.9 mg/dL (0.7-1.3); GFR FOR AFR.AMER. > 60 ML/MIN (>=60 (CALC)); GFR OTHER RACES > 60 ML/MIN (>=60 (CALC)); MAGNESIUM 2.3 mg/dL (1.6-2.3); POTASSIUM 4.1 mmol/l (3.5-5.1); SODIUM 138 mmol/l (137-146)
--- NOTE | 2022-05-08 08:22 | NUR ---
RESTING QUIETLY IN BED, NO SIGNS OR SYMPTOMS OF DISTRESS NOTED OR VOICED.
--- NOTE | 2022-05-08 12:25 | NUR ---
RESTING QUIETLY IN BED, NO SIGNS OR SYMPTOMS OF DISTRESS NOTED OR VOICED.
--- NOTE | 2022-05-08 14:35 | NUR ---
SPEECH PATHOLOGY-- PT NEEDS TO BE PROVIDED WITH SUPPLIES TO COMPLETE ORAL CARE BEFORE AND AFTER MEALS. D/T KNOWN ASPIRATION EVENTS AND RISK OF PNA, ENVIRONMENTAL ENGINEERING ASSISTANT RECOMMENDS WATER ONLY FOR PO INTAKE.
--- NOTE | 2022-05-08 16:01 | NUR ---
PATIENT RESTING QUIETLY IN BED, NO SIGNS OR SYMPTOMS OF DISTRESS NOTED OR VOICED.
--- NOTE | 2022-05-08 20:00 | NUR ---
PATIENT SITTING UP IN BED WITH O2 VIA NASAL CANNULA IN PLACE. AWAKE ALERT AND ORIENTEDX3. PATIENT WITH C/O OF FEELING ANXIOUS-STATES THAT HE DOES USE MEDICAL MARIJUANA AT HOME FOR PAIN AND ANXIETY AND HAS BEEN OFF IT FOR A FEW DAYS. ALSO NO CIGARETTES-DR. CHRISTINE WAS CALLED AND PATIENT WAS MEDICATED WITH XANAX 0.25MG PO ORDERED. PATIENT STATES THAT HE HASN'T HAD BM SINCE 05/06/22-OFFERED MOM BUT PATIENT DECLINED. VOIDING YELLOW URINE IN URINAL. LUNGS DIMINISHED THROUGHOUT. SAFETY PRECAUTIONS RFEINFORCED. CALL LIGHT IN REACH. WILL CONT TO MONTIOR.
[2022-05-09 00:30] VITALS: BP 130/66
--- NOTE | 2022-05-09 01:17 | NUR ---
SITTING UP IN BED WITH O2 VIA NASAL CANNULA IN PLACE AT 3LPM. TELE MONITOR IN PLACE. CALL LIGHT IN REACH. WILL CONT TO MONITOR.
--- NOTE | 2022-05-09 04:30 | NUR ---
PATIENT SITTING UP IN BED WITH O2 VIA NASAL CANNULA IN PLACE. TELE MONITOR IN PLACE WITH LAST READING OF SB-56, PVC'S AND 1ST DEGREE AVB. SALINE LOCK TO LEFT FORFEARM. EYES ARE CLOSED AND RESPS ARE EVEN AND UNLABORED AT THIS TIME. VOIDING QS IN URINAL CLEAR YELLOW URINE. CALL LIGHT IN REACH. WILL CONT TO MONITOR.
[2022-05-09 04:48] VITALS: BP 134/55
[2022-05-09 05:03] LABS: HEMATOCRIT 31.3 % (39.0-50.0); HEMOGLOBIN 10.2 g/dl (14.0-18.0); MEAN CELL VOLUME 89.2 fL CALC (80.0-100.0); MEAN CORPUSCULAR HGB 29.1 pG CALC (26.0-32.0); MEAN CORPUSCULAR HGB CONC 32.6 g/dL CAL (32.0-36.0); RED BLOOD COUNT 3.51 mill/uL (4.70-6.10); RED CELL DISTRI WIDTH 13.5 % (11.5-15.5)
[2022-05-09 05:13] LABS: ANION GAP 7 (6-22 (CALC)); BUN 25 mg/dL (8-23); BUN/CREATININE RATIO 24 (12-20 (CALC)); CARBON DIOXIDE 26 mmol/l (22-30); CHLORIDE 109 mmol/l (95-108); GFR FOR AFR.AMER. > 60 ML/MIN (>=60 (CALC)); GFR OTHER RACES > 60 ML/MIN (>=60 (CALC)); POTASSIUM 4.1 mmol/l (3.5-5.1); SODIUM 138 mmol/l (137-146)
[2022-05-09 07:14] VITALS: BP 133/59
--- NOTE | 2022-05-09 08:00 | NUR ---
GOT REPORT FROM WOOD POLISHER NURSE. PATIENT ASSESSED, AOX4, PATIENT FINISHED EATING BREAKFAST. HE IS SITTIN GUP IN BED WATCHING TV. PATIENT STATES THAT HE NEEDS SOMETHING FOR HIS ANXITY AND PAIN. MEDICATION GIVEN. NO OTHER COMPLAINTS AT THIS TIME. CALL LIGHT AND BEDSIDE TABLE WITH IN REACH. ADVISED TO CALL IF HE NEEDED ANYTHING. PATIENT VERBALIZED UNDERSTANDING.
[2022-05-09 11:00] VITALS: BP 128/78
--- NOTE | 2022-05-09 11:48 | NUR ---
Pt resting in bed, no complaints except SOB. Pt bed mobility and transfers with modified indep. Gait 2x 30' in room with contact supervision and no assist device. No LOB was noted. Standing balance activities performed including eyes open/eyes close with feet together, side stepping, PNF in stance. All balance and gait performed with gait belt and assist as needed. Pt 02 sats decreased when pt mouth breaths, he was instructed to and performed inspiration thru nose with better 02 sats. Pt was left in chair with call nunez/phone and tray in reach. BP 128/78, HR 59-78-78, 02sats 97 supine, 92 after 1st walk, 88 after 2nd walk, recovered to 92-93% with rest and proper breathing. Time with pt 35min A- Pt activity limited by respiratory status. Pt would benefit from ECF to increase mobility/balance/respiratory status. [facility] P- will follow for above until D/C. with return to 92 with proper breathing and rest. with
--- NOTE | 2022-05-09 14:00 | NUR ---
SPEECH PATHOLOGY-- CLINICAL PSYCHOLOGIST [employer] RE-EDUCATED PT ON REASON FOR WATER ONLY RECOMMENDATION AND ORAL CARE 3X/DAY. PT TOLERATED SINGLE SIPS OF THIN LIQUIDS W/O S/S OF ASPIRATION AND NO ANTEIROR LOSS OF BOLUS. PT SATISFIED WITH PUREED SOLIDS. CLINICAL PSYCHOLOGIST [facility] HAD PT COMPLETE CHIN TUCKS TO IMPROVE POSTERIOR PHARYNGEAL WALL CONTACT WITH BOT TO REDUCE PHARYNGEAL RESIDUE. PT INSTRUCTED ON EFFORTFUL SWALLOW X2 TO IMPROVE PHARYNGEAL CLEARANCE. NO S/S OF ASPIRATION PRESENT WHEN USING STRATEGIES.
--- NOTE | 2022-05-09 16:00 | NUR ---
NO SXS OF DISTRESS, CALL LIGHT AND BEDSIDE TABLE WITH IN REACH. ADVISED TO CALL IF NEEDING ANYTHING.
[2022-05-09 16:01] VITALS: BP 115/58
[2022-05-09 19:17] VITALS: BP 128/68
--- NOTE | 2022-05-09 19:45 | NUR ---
SITTING UP IN BED WITH O2 VIA NASAL CANNULA IN PLACE. AWAKE ALERT AND ORIENTEDX3-C/O CHRONIC NECK AND BACK PAIN AND ANXIETY. MEDICATED WITH TORADOL FOR 10/10 ON PAIN SCALE AND WITH XANAX 0.25MG PO FOR AXIETY. STILL WAITING TO GO TO REHAB. TELE MONITOR IN PLACE-LAST READING WAS SR-73 WITH PVC'S AND 1ST DEGREE AVB. SALINE LOCK TO LEFT FOREARM INTACT. LUNGS REMAINS DIMINISHED THROUGHOUT. SAFETY PRECAUTIONS REINFORCED. CALL LIGHT IN REACH. WILL CONT TO MONITOR.
--- NOTE | 2022-05-09 21:00 | NUR ---
REMAINS SITTING U P IN BED WITH O2 VIA NASAL CANNULA IN PLACE. EATING FOOD THAT FAMILY BROUGHT IN FOR HIM. STATES THAT HE DID HAVE BM EARLIER TODAY. CONT TO USE URINAL FOR CLEAR YELLOW URINE. STATES SOME RELIEF FROM EARLIER PAIN MED AND XANAX. CALL LIGHT IN REACH. WILL CONT TO MONITOR.
[2022-05-10 00:12] VITALS: BP 115/59
--- NOTE | 2022-05-10 00:45 | NUR ---
PATIENT SITTING UP IN BED WITH EYES CLOSED. O2 VIA NASAL CANNULA IN PLACE. TELE MONITOR IN PLACE. RESPS ARE EVEN AND UNLABORED AT THIS TIME. CALL LIGHT IN REACH. WILL CONT TO MONITOR.
[2022-05-10 04:45] VITALS: BP 140/69
--- NOTE | 2022-05-10 07:07 | NUR ---
RESTING IN BED-SITTING UP WITH EYES CLSOED. O2 VIA NASAL CANNULA INPLACE. SALINE LOCK TO LEFT FOREARM INTACT. CALL LIGHT REACH,. WILL CONT TO MONITOR.
[2022-05-10 07:19] VITALS: BP 143/63
--- NOTE | 2022-05-10 08:00 | NUR ---
AWAKE, ALERT, NO SIGNS OR SYMPTOMS OF DISTRESS NOTED OR VOICED.
[2022-05-10 10:44] VITALS: BP 121/71
--- NOTE | 2022-05-10 11:32 | NUR ---
Pt seent his am for treatment, stated he was waiting to go to rehab. He was with decreased c/o of SOB today during treatment. Pt ambulated 1 x 30' and 2 x 40' in room with CGA, mild LOB noted at times. Transfer to and from bed with CGA, Standing balance activite performed with CGA/min assist. Pt HR 65 to 91, BP 118/61, 02sats at rest 92 on 02, 02sats stayed able 92% today. Pt left OOB in chair with call nunez/tray/phone in reach. A- Pt with some decrease in balance noted, mobility limited by respiratory status. [facility] ECF P- Continue PT until pt is d/can.
[2022-05-10] MEDS ORDERED: AMOX/K CLAV875 M1 PO (11:35)
[2022-05-10] MEDS ORDERED: IPRATROPIU0.5 MG/3 M NEB (11:35)
[2022-05-10] MEDS ORDERED: PREDNISONE10 MG PO (11:35)
--- NOTE | 2022-05-10 12:45 | NUR ---
RESTING QUIETLY IN BED, AWAITING AUTH TO GO TO REHAB.
--- NOTE | 2022-05-10 13:08 | NUR ---
SPEECH PATHOLOGY-- PT SEEN FOR F/U ON RECALL OF SAFE SWALLOW PRECAUTIONS AND STRATEGIES. PT REPORTED HIS DAUGHTER BROUGHT HIM SOLID FOODS LAST NIGHT INCLUDING FISH AND RICE. HE STATED HE USED A LIQUID WASH. THE PT RECALLED USING A CHIN TUCK AND SAFE SWALLOW PRECAUTIONS DURING MEALS. HE CONTINUES TO STATE A PREFERENCE FOR PUREED FOODS. PT FOLLOWING RECOMMENDATIONS FOR THIN LIQUID WATER ONLY AT THIS TIME, AND NO OTHER LIQUIDS UNLESS THEY ARE THICKENED.
[2022-05-10 16:00] VITALS: BP 121/71
--- NOTE | 2022-05-10 16:33 | NUR ---
RESTING QUIETLY IN BED, NO SIGNS OR SYMPTOMS OF DISTRESS NOTED OR VOICED.
--- NOTE | 2022-05-10 17:23 | NUR ---
Discharge instructions given. Patient verbalizes understanding of same. Discharged in stable condition via Wheelchair to Home with staff. All belongings sent with pt.
== END 2022-05-10 17:26 | disposition home health service (06) ==
LOC: ED 13:00 → ED-I 15:42 → ED 15:57 → MS2 15:58
PROVIDERS: Family Medicine; Internal Medicine; ADMIT Hospitalist; ATTEND Hospitalist
DX: J44.1 Chronic obstructive pulmonary disease with (acute) exacerbation (principal); J96.11 Chronic respiratory failure with hypoxia; I11.0 Hypertensive heart disease with heart failure; I50.9 Heart failure, unspecified; I25.10 Atherosclerotic heart disease of native coronary artery without angina pectoris; I71.4 Abdominal aortic aneurysm, without rupture; R13.10 Dysphagia, unspecified; E78.5 Hyperlipidemia, unspecified; F17.210 Nicotine dependence, cigarettes, uncomplicated; B19.20 Unspecified viral hepatitis C without hepatic coma; Z95.1 Presence of aortocoronary bypass graft; Z99.81 Dependence on supplemental oxygen; Z85.819 Personal history of malignant neoplasm of unspecified site of lip, oral cavity, and pharynx; Z86.711 Personal history of pulmonary embolism; Z87.01 Personal history of pneumonia (recurrent); Z91.11 Patient's noncompliance with dietary regimen; Z20.822 Contact with and (suspected) exposure to COVID-19
CPT/HCPCS: J1650

== ENCOUNTER 2022-06-02 18:28 | Inpatient (IN) | payer MEDICARE, MEDICAID ==
[~2022-06-02] VITALS: Ht 185.4 cm; Wt 77.0 kg
[2022-06-02] VITALS (15 sets, daily range): BP systolic 102–163; BP diastolic 56–104
[~2022-06-02 18:28] MED LIST changes: +AMOX/K CLAV875 M1 PO; +IPRATROPIU0.5 MG/3 M NEB
[2022-06-02 19:12] LABS: IMMATURE GRANULOCYTES 0.4 % (0.0-5.0); MEAN CELL VOLUME 89.7 fL CALC (80.0-100.0); MEAN CORPUSCULAR HGB 28.2 pG CALC (26.0-32.0); MEAN CORPUSCULAR HGB CONC 31.5 g/dL CAL (32.0-36.0); NEUT# 3.85 thou/uL (1.82-7.42); RED BLOOD COUNT 4.85 mill/uL (4.70-6.10); RED CELL DISTRI WIDTH 13.3 % (11.5-15.5)
[2022-06-02 19:15] LABS: HEMATOCRIT 43.5 % (39.0-50.0); HEMOGLOBIN 13.7 g/dl (14.0-18.0)
[2022-06-02 19:27] LABS: PROTHROMBIN TIME 10.4 SECONDS (9.0-12.5)
[2022-06-02 19:39] LABS: MYOGLOBIN 24 ng/mL (0 - 121)
[2022-06-03 03:50] VITALS: BP 104/60
[2022-06-03 04:00] VITALS: BP 104/60
[2022-06-03 05:21] LABS: HEMATOCRIT 36.2 % (39.0-50.0); HEMOGLOBIN 11.5 g/dl (14.0-18.0); IMMATURE GRANULOCYTES 0.5 % (0.0-5.0); MEAN CELL VOLUME 89.6 fL CALC (80.0-100.0); MEAN CORPUSCULAR HGB 28.5 pG CALC (26.0-32.0); MEAN CORPUSCULAR HGB CONC 31.8 g/dL CAL (32.0-36.0); NEUT# 3.73 thou/uL (1.82-7.42); RED BLOOD COUNT 4.04 mill/uL (4.70-6.10); RED CELL DISTRI WIDTH 13.1 % (11.5-15.5)
[2022-06-03 05:33] LABS: ANION GAP 14 (6-22 (CALC)); BUN 20 mg/dL (8-23); BUN/CREATININE RATIO 22 (12-20 (CALC)); CARBON DIOXIDE 28 mmol/l (22-30); CHLORIDE 99 mmol/l (95-108); CREATININE 0.9 mg/dL (0.7-1.3); GFR FOR AFR.AMER. > 60 ML/MIN (>=60 (CALC)); GFR OTHER RACES > 60 ML/MIN (>=60 (CALC)); POTASSIUM 4.4 mmol/l (3.5-5.1); SODIUM 137 mmol/l (137-146)
[2022-06-03 06:19] VITALS: BP 107/63
[2022-06-03 06:57] LABS: URINE BILIRUBIN - DIPSTICK NEGATIVE (NEGATIVE); URINE BLOOD DIPSTICK NEGATIVE (NEGATIVE); URINE COLOR YELLOW; URINE GLUCOSE - DIPSTICK NEGATIVE (NEGATIVE); URINE KETONE TRACE mg/dL (NEGATIVE); URINE LEUK ESTERASE NEGATIVE (NEGATIVE); URINE PROTEIN - DIPSTICK NEGATIVE (NEG-TRACE); URINE SPECIFIC GRAVITY >=1.030; URINE UROBILINOGEN - DIPSTICK 0.2 E.U./dL (0.2)
[2022-06-03 07:01] LABS: URINE NITRITE - DIPSTICK NEGATIVE (Negative)
[2022-06-03 14:20] VITALS: BP 107/63
[2022-06-03 18:30] VITALS: BP 113/60
[2022-06-03 18:41] VITALS: BP 113/60
[2022-06-04 04:01] VITALS: BP 103/54
[2022-06-04 04:41] LABS: HEMATOCRIT 33.7 % (39.0-50.0); HEMOGLOBIN 10.8 g/dl (14.0-18.0); IMMATURE GRANULOCYTES 0.5 % (0.0-5.0); MEAN CELL VOLUME 89.4 fL CALC (80.0-100.0); MEAN CORPUSCULAR HGB 28.6 pG CALC (26.0-32.0); NEUT# 7.28 thou/uL (1.82-7.42); RED BLOOD COUNT 3.77 mill/uL (4.70-6.10)
[2022-06-04 04:48] LABS: ANION GAP 12 (6-22 (CALC)); BUN 32 mg/dL (8-23); BUN/CREATININE RATIO 29 (12-20 (CALC)); CARBON DIOXIDE 26 mmol/l (22-30); CHLORIDE 102 mmol/l (95-108); CREATININE 1.1 mg/dL (0.7-1.3); GFR FOR AFR.AMER. > 60 ML/MIN (>=60 (CALC)); GFR OTHER RACES > 60 ML/MIN (>=60 (CALC)); POTASSIUM 4.8 mmol/l (3.5-5.1); SODIUM 135 mmol/l (137-146)
[2022-06-04 04:53] VITALS: BP 103/54
[2022-06-04 06:23] VITALS: BP 115/76
[2022-06-04 14:04] VITALS: BP 120/73
[2022-06-04 19:00] VITALS: BP 114/55
[2022-06-04 19:01] VITALS: BP 114/55
[2022-06-05 04:53] VITALS: BP 112/56
[2022-06-05 05:28] LABS: HEMATOCRIT 32.4 % (39.0-50.0); HEMOGLOBIN 10.3 g/dl (14.0-18.0); IMMATURE GRANULOCYTES 0.3 % (0.0-5.0); MEAN CELL VOLUME 90.5 fL CALC (80.0-100.0); MEAN CORPUSCULAR HGB 28.8 pG CALC (26.0-32.0); MEAN CORPUSCULAR HGB CONC 31.8 g/dL CAL (32.0-36.0); NEUT# 7.19 thou/uL (1.82-7.42); RED BLOOD COUNT 3.58 mill/uL (4.70-6.10); RED CELL DISTRI WIDTH 13.3 % (11.5-15.5)
[2022-06-05 05:50] LABS: ALKALINE PHOSPHATASE 80 u/l (38-126); ANION GAP 10 (6-22 (CALC)); BUN 34 mg/dL (8-23); BUN/CREATININE RATIO 44 (12-20 (CALC)); CARBON DIOXIDE 27 mmol/l (22-30); CHLORIDE 104 mmol/l (95-108); CREATININE 0.8 mg/dL (0.7-1.3); GFR FOR AFR.AMER. > 60 ML/MIN (>=60 (CALC)); GFR OTHER RACES > 60 ML/MIN (>=60 (CALC)); POTASSIUM 4.4 mmol/l (3.5-5.1); SGOT/AST 22 u/l (19-48); SODIUM 136 mmol/l (137-146)
[2022-06-05 05:55] LABS: BILIRUBIN, TOTAL 0.1 mg/dL (0.0-1.4)
[2022-06-05 06:37] VITALS: BP 94/47
[2022-06-05 15:22] VITALS: BP 107/49
[2022-06-05 19:32] VITALS: BP 114/58
[2022-06-06 03:38] VITALS: BP 127/61
[2022-06-06 07:01] VITALS: BP 135/62
[2022-06-06 15:47] VITALS: BP 127/57
[2022-06-06 19:49] VITALS: BP 135/64
[2022-06-07 04:37] VITALS: BP 131/56
[2022-06-07 07:18] VITALS: BP 128/63
[2022-06-07 15:33] VITALS: BP 125/69
[2022-06-07 19:27] VITALS: BP 137/63
[2022-06-08 04:08] VITALS: BP 137/77
[2022-06-08 06:31] LABS: ALBUMIN 2.9 g/dL (3.2-5.0); ALKALINE PHOSPHATASE 82 u/l (38-126); BUN 25 mg/dL (8-23); BUN/CREATININE RATIO 32 (12-20 (CALC)); CHLORIDE 103 mmol/l (95-108); CREATININE 0.8 mg/dL (0.7-1.3); GFR FOR AFR.AMER. > 60 ML/MIN (>=60 (CALC)); GFR OTHER RACES > 60 ML/MIN (>=60 (CALC)); MAGNESIUM 2.4 mg/dL (1.6-2.3); POTASSIUM 4.5 mmol/l (3.5-5.1); SGOT/AST 36 u/l (19-48); SODIUM 140 mmol/l (137-146); TOTAL PROTEIN 5.8 g/dL (6.3-8.2)
[2022-06-08 06:39] LABS: ANION GAP 9 (6-22 (CALC)); BILIRUBIN, TOTAL 0.2 mg/dL (0.0-1.4); CARBON DIOXIDE 33 mmol/l (22-30)
[2022-06-08 07:00] VITALS: BP 134/63
[2022-06-08 07:46] VITALS: BP 134/63
[2022-06-08 15:27] VITALS: BP 137/68
[2022-06-08 15:48] VITALS: BP 137/68
[2022-06-08 18:49] VITALS: BP 114/82
[2022-06-09 04:00] VITALS: BP 146/69
[2022-06-09 04:22] VITALS: BP 146/69
[2022-06-09 05:03] LABS: HEMATOCRIT 33.3 % (39.0-50.0); MEAN CELL VOLUME 87.4 fL CALC (80.0-100.0); MEAN CORPUSCULAR HGB 28.9 pG CALC (26.0-32.0); NEUT# 7.43 thou/uL (1.82-7.42); RED BLOOD COUNT 3.81 mill/uL (4.70-6.10); RED CELL DISTRI WIDTH 13.6 % (11.5-15.5)
[2022-06-09 05:04] LABS: IMMATURE GRANULOCYTES 8.3 % (0.0-5.0)
[2022-06-09 05:25] LABS: ALBUMIN 2.9 g/dL (3.2-5.0); ALKALINE PHOSPHATASE 83 u/l (38-126); ANION GAP 8 (6-22 (CALC)); BILIRUBIN, TOTAL 0.2 mg/dL (0.0-1.4); BUN 27 mg/dL (8-23); BUN/CREATININE RATIO 29 (12-20 (CALC)); CARBON DIOXIDE 31 mmol/l (22-30); CHLORIDE 103 mmol/l (95-108); GFR FOR AFR.AMER. > 60 ML/MIN (>=60 (CALC)); GFR OTHER RACES > 60 ML/MIN (>=60 (CALC)); MAGNESIUM 2.3 mg/dL (1.6-2.3); POTASSIUM 4.4 mmol/l (3.5-5.1); SGOT/AST 49 u/l (19-48); SODIUM 138 mmol/l (137-146); TOTAL PROTEIN 5.8 g/dL (6.3-8.2)
[2022-06-09 06:56] VITALS: BP 136/67
[2022-06-09] MEDS ORDERED: PREDNISONE10 MG PO (12:57)
[2022-06-09] MEDS ORDERED: PIPERACILLIN SO1 INJ IV (12:57)
[2022-06-09 14:28] VITALS: BP 126/63
[2022-06-09 16:47] VITALS: BP 144/63
== END 2022-06-09 18:50 | DRG 177 ==
LOC: ED 18:28 → ED-I 19:50 → ED 20:09 → MS2 20:10
PROVIDERS: Nurse Practitioner; ADMIT Internal Medicine; ATTEND Internal Medicine
PROC: 05H933Z Insertion of Infusion Device into Right Brachial Vein, Percutaneous Approach (ICD-10-PCS; principal; 2022-06-09)
DX: J15.1 Pneumonia due to Pseudomonas (principal); J96.21 Acute and chronic respiratory failure with hypoxia; J44.1 Chronic obstructive pulmonary disease with (acute) exacerbation; J44.0 Chronic obstructive pulmonary disease with (acute) lower respiratory infection; I11.0 Hypertensive heart disease with heart failure; I50.9 Heart failure, unspecified; I25.10 Atherosclerotic heart disease of native coronary artery without angina pectoris; E78.5 Hyperlipidemia, unspecified; R13.10 Dysphagia, unspecified; I71.4 Abdominal aortic aneurysm, without rupture; K44.9 Diaphragmatic hernia without obstruction or gangrene; R63.6 Underweight; F41.9 Anxiety disorder, unspecified; B19.20 Unspecified viral hepatitis C without hepatic coma; F17.210 Nicotine dependence, cigarettes, uncomplicated; Z85.810 Personal history of malignant neoplasm of tongue; Z90.49 Acquired absence of other specified parts of digestive tract; Z68.22 Body mass index [BMI] 22.0-22.9, adult; Z86.711 Personal history of pulmonary embolism; Z99.81 Dependence on supplemental oxygen; Z87.01 Personal history of pneumonia (recurrent); Z95.1 Presence of aortocoronary bypass graft; Z20.822 Contact with and (suspected) exposure to COVID-19
CPT/HCPCS: G0378; J1650; J2060; Q3014

== ENCOUNTER 2022-06-20 00:39 | Inpatient (IN) | payer MEDICARE, MEDICAID ==
[2022-06-20] VITALS (30 sets, daily range): BP systolic 98–141; BP diastolic 50–89
[~2022-06-20] VITALS: Ht 185.4 cm; Wt 88.0 kg
[~2022-06-20 00:39] MED LIST changes: -ALBUTERO1 IN; +PIPERACILLIN SO1 INJ IV; -TRELEGY ELLIPTA1 AER IN
[2022-06-20 01:06] LABS: HEMATOCRIT 36.7 % (39.0-50.0); HEMOGLOBIN 11.5 g/dl (14.0-18.0); IMMATURE GRANULOCYTES 2.3 % (0.0-5.0); MEAN CORPUSCULAR HGB 29.1 pG CALC (26.0-32.0); MEAN CORPUSCULAR HGB CONC 31.3 g/dL CAL (32.0-36.0); NEUT# 12.51 thou/uL (1.82-7.42); RED BLOOD COUNT 3.95 mill/uL (4.70-6.10); RED CELL DISTRI WIDTH 16.8 % (11.5-15.5)
[2022-06-20 01:16] LABS: MEAN CELL VOLUME 92.9 fL CALC (80.0-100.0)
[2022-06-20 01:17] LABS: ALBUMIN 3.4 g/dL (3.2-5.0); ALKALINE PHOSPHATASE 109 u/l (38-126); ANION GAP 10 (6-22 (CALC)); BUN 18 mg/dL (8-23); BUN/CREATININE RATIO 23 (12-20 (CALC)); CARBON DIOXIDE 29 mmol/l (22-30); CHLORIDE 102 mmol/l (95-108); CREATININE 0.8 mg/dL (0.7-1.3); GFR FOR AFR.AMER. > 60 ML/MIN (>=60 (CALC)); GFR OTHER RACES > 60 ML/MIN (>=60 (CALC)); POTASSIUM 4.4 mmol/l (3.5-5.1); SGOT/AST 53 u/l (19-48); SODIUM 136 mmol/l (137-146); TOTAL PROTEIN 6.4 g/dL (6.3-8.2)
[2022-06-20 01:18] LABS: BILIRUBIN, TOTAL 0.5 mg/dL (0.0-1.4)
[2022-06-20 01:29] LABS: MYOGLOBIN 30 ng/mL (0 - 121)
[2022-06-20 02:09] LABS: URINE BILIRUBIN - DIPSTICK NEGATIVE (NEGATIVE); URINE BLOOD DIPSTICK NEGATIVE (NEGATIVE); URINE COLOR YELLOW; URINE GLUCOSE - DIPSTICK NEGATIVE (NEGATIVE); URINE KETONE NEGATIVE (NEGATIVE); URINE LEUK ESTERASE NEGATIVE (NEGATIVE); URINE NITRITE - DIPSTICK NEGATIVE (Negative); URINE PROTEIN - DIPSTICK NEGATIVE (NEG-TRACE); URINE SPECIFIC GRAVITY 1.015; URINE UROBILINOGEN - DIPSTICK 0.2 E.U./dL (0.2)
[2022-06-21] VITALS (17 sets, daily range): BP systolic 106–143; BP diastolic 37–81
[2022-06-21 05:57] LABS: HEMATOCRIT 32.2 % (39.0-50.0); HEMOGLOBIN 10.4 g/dl (14.0-18.0); MEAN CELL VOLUME 90.7 fL CALC (80.0-100.0); MEAN CORPUSCULAR HGB 29.3 pG CALC (26.0-32.0); MEAN CORPUSCULAR HGB CONC 32.3 g/dL CAL (32.0-36.0); RED BLOOD COUNT 3.55 mill/uL (4.70-6.10); RED CELL DISTRI WIDTH 16.3 % (11.5-15.5)
[2022-06-21 06:19] LABS: BUN 30 mg/dL (8-23); BUN/CREATININE RATIO 42 (12-20 (CALC)); CARBON DIOXIDE 26 mmol/l (22-30); CHLORIDE 109 mmol/l (95-108); CREATININE 0.7 mg/dL (0.7-1.3); GFR FOR AFR.AMER. > 60 ML/MIN (>=60 (CALC)); GFR OTHER RACES > 60 ML/MIN (>=60 (CALC)); SODIUM 138 mmol/l (137-146)
[2022-06-21 06:21] LABS: ANION GAP 8 (6-22 (CALC)); POTASSIUM 4.7 mmol/l (3.5-5.1)
[2022-06-21 06:37] LABS: MAGNESIUM 2.4 mg/dL (1.6-2.3)
[2022-06-22 04:06] VITALS: BP 127/65
[2022-06-22 05:34] LABS: HEMATOCRIT 29.4 % (39.0-50.0); HEMOGLOBIN 9.4 g/dl (14.0-18.0); MEAN CELL VOLUME 92.7 fL CALC (80.0-100.0); MEAN CORPUSCULAR HGB 29.7 pG CALC (26.0-32.0); RED BLOOD COUNT 3.17 mill/uL (4.70-6.10); RED CELL DISTRI WIDTH 16.6 % (11.5-15.5)
[2022-06-22 06:01] LABS: ALBUMIN 2.8 g/dL (3.2-5.0); ALKALINE PHOSPHATASE 88 u/l (38-126); ANION GAP 9 (6-22 (CALC)); BILIRUBIN, TOTAL 0.3 mg/dL (0.0-1.4); BUN 28 mg/dL (8-23); BUN/CREATININE RATIO 36 (12-20 (CALC)); CARBON DIOXIDE 25 mmol/l (22-30); CHLORIDE 109 mmol/l (95-108); CREATININE 0.8 mg/dL (0.7-1.3); GFR FOR AFR.AMER. > 60 ML/MIN (>=60 (CALC)); GFR OTHER RACES > 60 ML/MIN (>=60 (CALC)); MAGNESIUM 2.1 mg/dL (1.6-2.3); POTASSIUM 4.9 mmol/l (3.5-5.1); SGOT/AST 30 u/l (19-48); SODIUM 138 mmol/l (137-146); TOTAL PROTEIN 5.7 g/dL (6.3-8.2)
[2022-06-22 06:28] VITALS: BP 135/69
[2022-06-22 10:43] VITALS: BP 115/50
[2022-06-22 14:32] VITALS: BP 143/68
[2022-06-22 18:34] VITALS: BP 122/59
[2022-06-22 23:38] VITALS: BP 138/74
[2022-06-23] VITALS (7 sets, daily range): BP systolic 134–159; BP diastolic 68–82
[2022-06-23 05:46] LABS: MEAN CELL VOLUME 91.4 fL CALC (80.0-100.0); MEAN CORPUSCULAR HGB 29.5 pG CALC (26.0-32.0); MEAN CORPUSCULAR HGB CONC 32.3 g/dL CAL (32.0-36.0); RED BLOOD COUNT 3.39 mill/uL (4.70-6.10); RED CELL DISTRI WIDTH 16.3 % (11.5-15.5)
[2022-06-23 06:04] LABS: ANION GAP 8 (6-22 (CALC)); BUN 30 mg/dL (8-23); BUN/CREATININE RATIO 37 (12-20 (CALC)); CARBON DIOXIDE 26 mmol/l (22-30); CHLORIDE 109 mmol/l (95-108); CREATININE 0.8 mg/dL (0.7-1.3); GFR FOR AFR.AMER. > 60 ML/MIN (>=60 (CALC)); GFR OTHER RACES > 60 ML/MIN (>=60 (CALC)); POTASSIUM 4.4 mmol/l (3.5-5.1); SODIUM 138 mmol/l (137-146)
[2022-06-24 03:45] VITALS: BP 141/69
[2022-06-24 04:44] LABS: HEMATOCRIT 31.1 % (39.0-50.0); HEMOGLOBIN 10.1 g/dl (14.0-18.0); MEAN CELL VOLUME 90.1 fL CALC (80.0-100.0); MEAN CORPUSCULAR HGB 29.3 pG CALC (26.0-32.0); MEAN CORPUSCULAR HGB CONC 32.5 g/dL CAL (32.0-36.0); RED BLOOD COUNT 3.45 mill/uL (4.70-6.10); RED CELL DISTRI WIDTH 15.9 % (11.5-15.5)
[2022-06-24 05:02] LABS: BUN 31 mg/dL (8-23); BUN/CREATININE RATIO 45 (12-20 (CALC)); CARBON DIOXIDE 26 mmol/l (22-30); CREATININE 0.7 mg/dL (0.7-1.3); GFR FOR AFR.AMER. > 60 ML/MIN (>=60 (CALC)); GFR OTHER RACES > 60 ML/MIN (>=60 (CALC)); MAGNESIUM 2.1 mg/dL (1.6-2.3)
[2022-06-24 05:16] LABS: ANION GAP 8 (6-22 (CALC)); CHLORIDE 108 mmol/l (95-108); POTASSIUM 4.6 mmol/l (3.5-5.1); SODIUM 137 mmol/l (137-146)
[2022-06-24 06:20] VITALS: BP 137/73
[2022-06-24 06:23] VITALS: BP 137/73
[2022-06-24 10:08] VITALS: BP 136/69
[2022-06-24 14:44] VITALS: BP 141/63
[2022-06-24 19:09] VITALS: BP 138/63
[2022-06-25] VITALS (7 sets, daily range): BP systolic 134–156; BP diastolic 62–76
[2022-06-25 05:04] LABS: HEMATOCRIT 32.5 % (39.0-50.0); HEMOGLOBIN 10.6 g/dl (14.0-18.0); IMMATURE GRANULOCYTES 0.6 % (0.0-5.0); MEAN CELL VOLUME 89.8 fL CALC (80.0-100.0); MEAN CORPUSCULAR HGB 29.3 pG CALC (26.0-32.0); MEAN CORPUSCULAR HGB CONC 32.6 g/dL CAL (32.0-36.0); NEUT# 4.24 thou/uL (1.82-7.42); RED BLOOD COUNT 3.62 mill/uL (4.70-6.10); RED CELL DISTRI WIDTH 15.8 % (11.5-15.5)
[2022-06-25 05:25] LABS: ANION GAP 8 (6-22 (CALC)); BUN 34 mg/dL (8-23); BUN/CREATININE RATIO 45 (12-20 (CALC)); CARBON DIOXIDE 26 mmol/l (22-30); CHLORIDE 107 mmol/l (95-108); CREATININE 0.8 mg/dL (0.7-1.3); GFR FOR AFR.AMER. > 60 ML/MIN (>=60 (CALC)); GFR OTHER RACES > 60 ML/MIN (>=60 (CALC)); POTASSIUM 4.4 mmol/l (3.5-5.1); SODIUM 136 mmol/l (137-146)
[2022-06-25] MEDS ORDERED: MEROPENEM1 GM IV (13:08)
[2022-06-26 03:58] VITALS: BP 137/65
[2022-06-26 07:11] VITALS: BP 127/66
[2022-06-26 12:02] VITALS: BP 134/69
[2022-06-26 16:39] VITALS: BP 121/63
[2022-06-26 19:32] VITALS: BP 132/57
[2022-06-27 01:36] VITALS: BP 133/56
[2022-06-27 04:59] VITALS: BP 131/65
[2022-06-27 05:27] LABS: HEMATOCRIT 31.6 % (39.0-50.0); HEMOGLOBIN 10.1 g/dl (14.0-18.0); IMMATURE GRANULOCYTES 1.6 % (0.0-5.0); MEAN CELL VOLUME 91.3 fL CALC (80.0-100.0); MEAN CORPUSCULAR HGB 29.2 pG CALC (26.0-32.0); NEUT# 3.91 thou/uL (1.82-7.42); RED BLOOD COUNT 3.46 mill/uL (4.70-6.10); RED CELL DISTRI WIDTH 15.9 % (11.5-15.5)
[2022-06-27 06:45] LABS: ALBUMIN 2.8 g/dL (3.2-5.0); ALKALINE PHOSPHATASE 128 u/l (38-126); ANION GAP 5 (6-22 (CALC)); BILIRUBIN, TOTAL 0.2 mg/dL (0.0-1.4); BUN 28 mg/dL (8-23); BUN/CREATININE RATIO 32 (12-20 (CALC)); CARBON DIOXIDE 31 mmol/l (22-30); CHLORIDE 106 mmol/l (95-108); CREATININE 0.9 mg/dL (0.7-1.3); GFR FOR AFR.AMER. > 60 ML/MIN (>=60 (CALC)); GFR OTHER RACES > 60 ML/MIN (>=60 (CALC)); POTASSIUM 3.8 mmol/l (3.5-5.1); SGOT/AST 27 u/l (19-48); SODIUM 138 mmol/l (137-146); TOTAL PROTEIN 5.3 g/dL (6.3-8.2)
[2022-06-27 06:57] VITALS: BP 131/62
[2022-06-27] MEDS ORDERED: PREDNISONE10 MG PO (09:47)
[2022-06-27 10:48] VITALS: BP 154/71
[2022-06-27 14:07] VITALS: BP 154/80
== END 2022-06-27 16:46 | DRG 177 ==
LOC: ED 00:39 → ED-I 02:08 → ED 02:25 → MS2 02:26 → ICU 04:45 → MS2 06-21 03:50
PROVIDERS: Emergency Medicine; Internal Medicine; ADMIT Internal Medicine; ATTEND Internal Medicine
DX: J69.0 Pneumonitis due to inhalation of food and vomit (principal); J96.21 Acute and chronic respiratory failure with hypoxia; I47.2 Ventricular tachycardia; Z16.24 Resistance to multiple antibiotics; J15.1 Pneumonia due to Pseudomonas; J43.9 Emphysema, unspecified; I11.0 Hypertensive heart disease with heart failure; I50.9 Heart failure, unspecified; I25.10 Atherosclerotic heart disease of native coronary artery without angina pectoris; J98.09 Other diseases of bronchus, not elsewhere classified; E78.5 Hyperlipidemia, unspecified; I71.4 Abdominal aortic aneurysm, without rupture; F41.9 Anxiety disorder, unspecified; R13.10 Dysphagia, unspecified; B19.20 Unspecified viral hepatitis C without hepatic coma; F17.200 Nicotine dependence, unspecified, uncomplicated; Z95.1 Presence of aortocoronary bypass graft; R63.6 Underweight; Z68.25 Body mass index [BMI] 25.0-25.9, adult; Z87.01 Personal history of pneumonia (recurrent); Z91.11 Patient's noncompliance with dietary regimen; Z86.711 Personal history of pulmonary embolism; Z85.819 Personal history of malignant neoplasm of unspecified site of lip, oral cavity, and pharynx; Z99.81 Dependence on supplemental oxygen; Z90.49 Acquired absence of other specified parts of digestive tract; Z20.822 Contact with and (suspected) exposure to COVID-19
CPT/HCPCS: J1650; J3370; J3475; Q3014; Q9967

== ENCOUNTER 2022-07-23 00:43 | Emergency (ER) | payer MEDICARE, MEDICAID ==
[2022-07-23] VITALS (51 sets, daily range): BP systolic 89–118; BP diastolic 56–84
[~2022-07-23] VITALS: Ht 185.4 cm; Wt 72.7 kg
[~2022-07-23 00:43] MED LIST changes: +MEROPENEM1 GM IV
[2022-07-23 01:12] LABS: IMMATURE GRANULOCYTES 1.2 % (0.0-5.0); MEAN CELL VOLUME 91.3 fL CALC (80.0-100.0); MEAN CORPUSCULAR HGB 28.8 pG CALC (26.0-32.0); MEAN CORPUSCULAR HGB CONC 31.5 g/dL CAL (32.0-36.0); NEUT# 10.29 thou/uL (1.82-7.42); RED BLOOD COUNT 4.24 mill/uL (4.70-6.10); RED CELL DISTRI WIDTH 14.8 % (11.5-15.5)
[2022-07-23 01:14] LABS: HEMATOCRIT 38.7 % (39.0-50.0); HEMOGLOBIN 12.2 g/dl (14.0-18.0)
[2022-07-23 01:26] LABS: ALKALINE PHOSPHATASE 101 u/l (38-126); ANION GAP 18 (6-22 (CALC)); BUN 16 mg/dL (8-23); BUN/CREATININE RATIO 13 (12-20 (CALC)); CARBON DIOXIDE 25 mmol/l (22-30); CHLORIDE 101 mmol/l (95-108); CREATININE 1.2 mg/dL (0.7-1.3); GFR FOR AFR.AMER. > 60 ML/MIN (>=60 (CALC)); GFR OTHER RACES 60 ML/MIN (>=60 (CALC)); SGOT/AST 26 u/l (19-48); SODIUM 140 mmol/l (137-146)
[2022-07-23 01:30] LABS: ALBUMIN 3.5 g/dL (3.2-5.0); BILIRUBIN, TOTAL 0.5 mg/dL (0.0-1.4); TOTAL PROTEIN 6.9 g/dL (6.3-8.2)
[2022-07-23 01:39] LABS: MYOGLOBIN 48 ng/mL (0 - 121)
[2022-07-23] MEDS ORDERED: ASPIRIN325 MG PO (02:30)
[2022-07-23] MEDS ORDERED: PREDNISONE5 MG PO (02:31)
[2022-07-23] MEDS ORDERED: MORPHINE SUL30 M3 PO (02:31)
[2022-07-23] MEDS ORDERED: LASIX 20 MG TAB20 MG PO (02:32)
[2022-07-23] MEDS ORDERED: LORAZEPAM0.5 MG PO (02:33)
[2022-07-23] MEDS ORDERED: POT CHLORIDE10 ME5 PO (02:34)
[2022-07-23 13:55] LABS: URINE BILIRUBIN - DIPSTICK NEGATIVE (NEGATIVE); URINE BLOOD DIPSTICK TRACE-INTACT (NEGATIVE); URINE GLUCOSE - DIPSTICK NEGATIVE (NEGATIVE); URINE KETONE NEGATIVE (NEGATIVE); URINE LEUK ESTERASE NEGATIVE (NEGATIVE); URINE PH 5.5 (4.5-8.0); URINE PROTEIN - DIPSTICK 100 mg/dL (NEG-TRACE); URINE UROBILINOGEN - DIPSTICK 0.2 E.U./dL (0.2)
[2022-07-23 13:56] LABS: URINE COLOR DK. YELLOW; URINE NITRITE - DIPSTICK POSITIVE (Negative); URINE RBC 0-2 RBC/hpf (0-5)
[2022-07-23 13:57] LABS: URINE EPITHELIAL CELLS FEW EPI/hpf (0-FEW)
[2022-07-23 13:58] LABS: URINE BACTERIA FEW hpf; URINE MUCUS MODERATE hpf (NONE-FEW); URINE WBC 0-2 WBC/hpf (0-5)
--- NOTE | 2022-07-26 15:27 | NUR ---
FINAL BLOOD CX RESULTS FAXED TO [facility] [phone]
== END 2022-07-23 15:00 | disposition hospice, inpatient (51) ==
LOC: ED 00:43
PROVIDERS: Emergency Medicine
DX: J18.9 Pneumonia, unspecified organism (principal); I26.99 Other pulmonary embolism without acute cor pulmonale; J43.9 Emphysema, unspecified; I25.10 Atherosclerotic heart disease of native coronary artery without angina pectoris; I50.9 Heart failure, unspecified; E78.5 Hyperlipidemia, unspecified; B19.20 Unspecified viral hepatitis C without hepatic coma; Z95.1 Presence of aortocoronary bypass graft; R63.6 Underweight; Z51.5 Encounter for palliative care; Z66 Do not resuscitate; Z87.01 Personal history of pneumonia (recurrent); Z20.822 Contact with and (suspected) exposure to COVID-19
CPT/HCPCS: J1650; Q9967

== ENCOUNTER 2022-08-15 19:36 | Emergency (ER) | payer MEDICARE, MEDICAID ==
[2022-08-15] VITALS (15 sets, daily range): BP systolic 111–127; BP diastolic 61–80
[~2022-08-15] VITALS: Ht 185.4 cm; Wt 72.0 kg
[~2022-08-15 19:36] MED LIST changes: +ASPIRIN325 MG PO; +LASIX 20 MG TAB20 MG PO; +LORAZEPAM0.5 MG PO; +MORPHINE SUL30 M3 PO; +POT CHLORIDE10 ME5 PO; +PREDNISONE5 MG PO
[2022-08-15 20:23] LABS: HEMATOCRIT 35.2 % (39.0-50.0); HEMOGLOBIN 11.2 g/dl (14.0-18.0); IMMATURE GRANULOCYTES 0.3 % (0.0-5.0); MEAN CORPUSCULAR HGB 28.6 pG CALC (26.0-32.0); MEAN CORPUSCULAR HGB CONC 31.8 g/dL CAL (32.0-36.0); NEUT# 4.61 thou/uL (1.82-7.42); RED BLOOD COUNT 3.91 mill/uL (4.70-6.10); RED CELL DISTRI WIDTH 14.4 % (11.5-15.5)
[2022-08-15 20:41] LABS: ALBUMIN 3.2 g/dL (3.2-5.0); ALKALINE PHOSPHATASE 99 u/l (38-126); ANION GAP 9 (6-22 (CALC)); BILIRUBIN, TOTAL 0.4 mg/dL (0.0-1.4); BUN 4 mg/dL (8-23); BUN/CREATININE RATIO 5 (12-20 (CALC)); CARBON DIOXIDE 26 mmol/l (22-30); CHLORIDE 105 mmol/l (95-108); CREATININE 0.8 mg/dL (0.7-1.3); GFR FOR AFR.AMER. > 60 ML/MIN (>=60 (CALC)); GFR OTHER RACES > 60 ML/MIN (>=60 (CALC)); POTASSIUM 3.4 mmol/l (3.5-5.1); SODIUM 137 mmol/l (137-146)
[2022-08-15 20:42] LABS: SGOT/AST 47 u/l (19-48); TOTAL PROTEIN 8.3 g/dL (6.3-8.2)
[2022-08-15 20:53] LABS: MYOGLOBIN 26 ng/mL (0 - 121)
== END 2022-08-15 23:28 | disposition home or self-care (01) ==
LOC: ED 19:36
PROVIDERS: Family Medicine
DX: J44.9 Chronic obstructive pulmonary disease, unspecified (principal); I50.9 Heart failure, unspecified; E78.5 Hyperlipidemia, unspecified; B19.20 Unspecified viral hepatitis C without hepatic coma; R63.6 Underweight; Z86.718 Personal history of other venous thrombosis and embolism; Z79.01 Long term (current) use of anticoagulants; Z86.711 Personal history of pulmonary embolism; Z99.81 Dependence on supplemental oxygen; Z95.1 Presence of aortocoronary bypass graft

== ENCOUNTER 2023-11-27 18:53 | Emergency (ER) | payer MEDICARE, MEDICAID ==
[~2023-11-27] VITALS: Ht 185.4 cm; Wt 72.6 kg
[2023-11-27 21:51] LABS: ALBUMIN 3.9 g/dL (3.2-5.0); ALKALINE PHOSPHATASE 80 u/l (38-126); ANION GAP 10 (6-22 (CALC)); BILIRUBIN, TOTAL 0.3 mg/dL (0.2-1.3); BUN 24 mg/dL (8-23); BUN/CREATININE RATIO 21 (12-20 (CALC)); CARBON DIOXIDE 28 mmol/l (22-30); CHLORIDE 106 mmol/l (95-108); CREATININE 1.1 mg/dL (0.7-1.3); GFR FOR AFR.AMER. > 60 ML/MIN (>=60 (CALC)); GFR OTHER RACES > 60 ML/MIN (>=60 (CALC)); POTASSIUM 4.6 mmol/l (3.5-5.1); SGOT/AST 36 u/l (19-48); SODIUM 140 mmol/l (137-146); TOTAL PROTEIN 7.4 g/dL (6.3-8.2)
[2023-11-28 02:37] VITALS: BP 122/64
== END 2023-11-28 02:50 | disposition home or self-care (01) ==
LOC: ED 18:53
PROVIDERS: Family Medicine
DX: M79.89 Other specified soft tissue disorders (principal); J44.9 Chronic obstructive pulmonary disease, unspecified; I50.9 Heart failure, unspecified; E78.5 Hyperlipidemia, unspecified; B19.20 Unspecified viral hepatitis C without hepatic coma; Z95.1 Presence of aortocoronary bypass graft
CPT/HCPCS: Q9967

== ENCOUNTER 2024-09-14 11:23 | Inpatient (IN) | payer MEDICARE ==
[~2024-09-14] VITALS: Ht 185.4 cm; Wt 68.3 kg
[2024-09-14] VITALS (28 sets, daily range): BP systolic 102–136; BP diastolic 54–95
[~2024-09-14 11:23] MED LIST changes: +CARDIZEM60 MG PO; +CRESTOR20 MG PO; +ELIQUIS5 MG PO; +LEVOFLOXACIN500MG PO; +LOPRESSOR25 M1 PO; +TRAMADOL HCL50 MG PO
--- NOTE | 2024-09-14 11:23 | NUR ---
PT TO ROOM VIA EMS
[2024-09-14] MEDS ORDERED: IPRATROPIUM-Albuterol 0.5MG-2.5MG/3 ML NEB ONE ×2 (11:35)
[2024-09-14] MEDS ORDERED: ONDANSETRON HCl 4 MG/2 ML SDV IV ONE (11:35)
[2024-09-14] MEDS ORDERED: FUROSEMIDE 40 MG/4 ML SDV IV ONE (11:35)
[2024-09-14] MEDS ORDERED: MORPHINE SULFATE 4 MG/ML VIAL IV ONE (11:35)
[2024-09-14] MEDS ORDERED: methylPREDNISolone SODIUM SUCC 125 MG/2 ML SDV IV ONE (11:35)
[2024-09-14 12:01] LABS: BASO% 0.1 % (0-3); EOS% 0.2 % (0-8); IMMATURE GRANULOCYTES 0.2 % (0.0-5.0); LYMPH% 4.5 % (15-41); MEAN CORPUSCULAR HGB 26.7 pG CALC (26.0-32.0); MEAN CORPUSCULAR HGB CONC 30.4 g/dL CAL (32.0-36.0); MONO% 1.8 % (2-13); NEUT# 9.8 thou/uL (1.82-7.42); NEUT% 93.2 % (42-76); RED BLOOD COUNT 4.53 mill/uL (4.70-6.10); RED CELL DISTRI WIDTH 14.2 % (11.5-15.5)
[2024-09-14 12:08] LABS: HEMATOCRIT 39.8 % (39.0-50.0); HEMOGLOBIN 12.1 g/dl (14.0-18.0); MEAN CELL VOLUME 87.9 fL CALC (80.0-100.0)
[2024-09-14 12:10] LABS: ALKALINE PHOSPHATASE 72 u/l (38-126); ANION GAP 15 (6-22 (CALC)); BUN 21 mg/dL (8-23); BUN/CREATININE RATIO 19 (12-20 (CALC)); CARBON DIOXIDE 26 mmol/l (22-30); CHLORIDE 101 mmol/l (95-108); CREATININE 1.1 mg/dL (0.7-1.3); ESTIMATED GFR 71 ML/MIN (>=90 (CALC)); POTASSIUM 4.2 mmol/l (3.5-5.1); SGOT/AST 36 u/l (19-48); SODIUM 139 mmol/l (137-146)
[2024-09-14] MEDS ORDERED: Iopamidol 370 (Isovue) 76% 100 ML SDV IV ONE (12:15)
[2024-09-14 12:17] LABS: ALBUMIN 4.3 g/dL (3.2-5.0); BILIRUBIN, TOTAL 0.4 mg/dL (0.2-1.3); TOTAL PROTEIN 7.9 g/dL (6.3-8.2)
--- NOTE | 2024-09-14 12:57 | NUR ---
PT RESTING, NO NEEDS AT THIS TIME.
[2024-09-14] MEDS ORDERED: cefTRIAXone SODIUM 2 GM in SODIUM CHLORIDE 0.9% 100 ML IV ONE (14:50)
[2024-09-14] MEDS ORDERED: AZITHROMYCIN 500 MG in SODIUM CHLORIDE 0.9% 250 ML IV ONE (14:50)
--- NOTE | 2024-09-14 14:50 | NUR ---
PT WATCHING TV, NO NEEDS AT THIS TIME.
[2024-09-14] MEDS ORDERED: ASPIRIN 81 MG/TAB PO ONE (15:15)
[2024-09-14] MEDS ORDERED: AZITHROMYCIN 500 MG/VIAL SDV IV ONE (15:46)
[2024-09-14] MEDS ORDERED: IPRATROPIUM-Albuterol 0.5MG-2.5MG/3 ML NEB PRN (17:25)
[2024-09-14] MEDS ORDERED: MAGNESIUM HYDROXIDE 30 ML UDC PO PRN (17:25)
[2024-09-14] MEDS ORDERED: SODIUM CHLORIDE 0.9% 1,000 ML IV PRN (17:25)
[2024-09-14] MEDS ORDERED: ACETAMINOPHEN 325 MG/TAB PO PRN (17:25)
--- NOTE | 2024-09-14 17:31 | NUR ---
REPORT GIVEN TO WILLY ROBERTS; TRANSPORTED TO FLOOR BY LAUREN ALFORD WITH TELE IN PLACE
--- NOTE | 2024-09-14 17:31 | NUR ---
RECEIVED PT FROM ER VIA STRETCHER AND ASSISTED TO BED BY TRANSPORT. PT ORIENTED TO ROOM, CALL LIGHT AND PHONE. DISCUSSED WITH PT FLU B PRECAUTIONS WELL TO HIS DAUGHTER DANIELLE WHOSE NUMBER IS [phone]. DAUGHTER CONCERNED RE: PT DIET AND HIGH ASPIRATION RISK D/Y DYSPHAGIA AND DYSARTHRIA. PT HAS PEG TUBE IN PLACE WHICH IS INFLAMED AND HASNT BEEN IN USE OTHER THAN TO GIVE PT HIS MEDS THROUGH. DAUGHTER INDICATED HE WAS SUPPOSED TO HAVE TUBE FEEDINGS THROUGH IT BUT NOTHING WAS EVER SET UP. CM AND SPEECH EVAL RECOMMENED WELL TECH ED/[employer] TEACHER TO ADDRESS NUTRITIONAL NEEDS D/T RECENT WEIGHT LOSS. PT RELUCTANT TO SEEK MEDICAL ATTENTION. IV PATENT TO RIGHT A/C SITE AND SL. TELE IN PLACE AND NSR. BED ALARM IN PLACE AND CALL LIGHT IN REACH. PT C/O DISCOMFORT TO CHEST AND SHOULDERS. AWAITING MD FOR ORDERS.
--- NOTE | 2024-09-14 18:57 | NUR ---
PEG SITE TO MID UPPER ABD CLAMPED. SMALL IRRITATED AREA TO BOTTOM OF TUBE WITH NOTICEABLE HERNIA TO RIGHT SIDE. NO C/O PAIN. BS POSITIVE. SHEARING SKIN TO RIGHT INNER GLUTEAL WELL.FOAM DRESSING APPLIED. DR. CHAVEZ CALLED RE: PEG TUBE AND NEED FOR FEEDINGS AND NPO AND DIETARY CONSULT. ORDERS PLACED AND REPORT GIVEN TO ONCOMING SHIFT.
[2024-09-14] MEDS ORDERED: MORPHINE SULFATE 4 MG/ML VIAL IV PRN (19:05)
--- NOTE | 2024-09-14 19:27 | NUR ---
RT IN ROOM CURRENTLY GETTING BREATHING TREATMRNT.
--- NOTE | 2024-09-14 20:00 | NUR ---
RECEIVED REPORT FROM DAY NURSE PATIENT ALERT ORIENTED ABLE TO MAKE NEEDS KNOWN, RT IN ROOM PATIENT REMAINS ON ISOLATION FOR FLU, PATIENT WAS WEARING O2 MASK, CHANGED BY RT TO VENTIMASK AT 6LITER 30%, LUNG SOUNDS COARSE BOTH LUNG FIELD, NON PRODUCTIVE COUGH, SPEECH A LITTLE GARBLE R/T TONGUE RESECTION, PATIENT NPO, ASKING FOR ICE CREAM, EDUCATED ABOUT RISK OF ASPIRATION, PATIENT STARTED ON JEVITY TUBE FEED ORDERED, PLACEMENT AND PATENCY CHECKED PRIOR TO USE WITH NO RESIDUAL NOTED, BLACK DISCOLORATION NOTED ON THE TUBE PATIENT STATED THAT WAS HIS 3RD TUBE THAT WAS PLACED, PATIENT CURRENTLY ON JEVITY CONTINUOUS FEED AT 30CC/HR AND 50CC FLUSH EVERY 4 HOURS, RESIDUAL CHECKED EVERY 4. CALL LIGHT IN REACHED. BED ALARM IN PLACED.
[2024-09-14] MEDS ORDERED: APIXABAN BASE 5 MG TAB PO SCH (21:00)
[2024-09-14] MEDS ORDERED: ENOXAPARIN SODIUM 40 MG/0.4 ML SYR SC SCH (21:00)
[2024-09-14] MEDS ORDERED: methylPREDNISolone Sod Succ 40 MG/ML SDV IV SCH (22:00)
[2024-09-15] VITALS (11 sets, daily range): BP systolic 93–111; BP diastolic 51–63
--- NOTE | 2024-09-15 00:50 | NUR ---
PATIENT CURRENTLY RESTING WITH EYES CLOSED, AROUSABLE, REMAINS ON O2 VIA VENTI MASK SETTING AT 30%, NOT IN DISTRESS, NO RESIDUAL NOTED AT THIS TIME, ZOSYN CURRENTLY INFUSING CALL LIGHT IN REACHED.
--- NOTE | 2024-09-15 04:09 | NUR ---
PATIENT RESTING IN BED, ONGOING TUBE FEED PER ORDER REMAINS ON O2 VIA VENTIMASK CALL LIGHT IN REACHED.
--- NOTE | 2024-09-15 08:30 | NUR ---
patient laying supine in bed; on 5l of 02 via rebreather; denied any n/d/v at this time; states some discomfort on buttcks, assited with repostion; denied any pain; no s.s of distress at this time; iv site clean and intact saline locked at this time; Peg tube working at this tiem with no issues; no complaints; call light within reach,verbalized understanding on how to use, personal items within reach; bed inlowest postion;safety measures in place; patint still on droplet precuations
[2024-09-15] MEDS ORDERED: FUROSEMIDE 40 MG/4 ML SDV IV SCH (09:30)
[2024-09-15] MEDS ORDERED: OSELTAMIVIR PHOSPHATE 75 MG/TAB CAP PO SCH (10:00)
--- NOTE | 2024-09-15 11:11 | NUR ---
TALKED T OCODI AND NUTRIONIST AND PATEINT REGARDING PATIENT FEEDING; AGRREED TO START BOLUS FEEDING 4 TIMES A DAY AT 0800,1200,1600.1999; 1 CAN OF JEVIRTY; TALKED TO PATIENT AND PATIENT AGREED TO PLAN; CURRENTLY STOPPED FEEDING AND FLUSHED AND CLAMPPED PEG TUBE
[2024-09-15] MEDS ORDERED: PIPERACILLIN Sodium-Tazobactam 3.375 GM in SODIUM CHLORIDE 0.9% 100 ML IV SCH ×2 (12:00)
--- NOTE | 2024-09-15 12:00 | NUR ---
PATIENT SLEEPING IN BED; ON 5L OF REBREATHER; DENIED ANY PAIN; DENIED ANY N/D/V AT THIS TIME; PEG TUBE CLEAN AND INTACT AND CLAMPED; IV SITE CLEAN AND INTACT SALINE LOCKED AT THIS TIME; TELE LEADS INTACT AND WORKING; NO COMPLAITS AT THIS TIME; CALL LIGHTW ITHIN; BED INLOWEST POSTION;SFAETY MEASURES IN PLACE
--- NOTE | 2024-09-15 12:50 | NUR ---
PATIENT ARRIVED TO SD FROM ED VIA STREACHER; ASSISTED WITH SLIDING PATIENT INTO BED; HEAD TO TOE ASSESSMENT COMPLETED; ROOM AIR; BREATHING UNLABORED AND EVEN; PAIN SCALE 7/10 FROM MOVING; TELE LEADS INTACT AND WORKIN WITH NO ISSUES; IV SITE ON RIGHT THUMB SALINE LOCKED AT THIS TIME; REDRESSED SKIN TEAR ON RIGHT ARM; PICTURES OF WOUNDS COMPLETED; CALL LIGHT WITHIN RECH; BED IN LOWEST POSTION; SAFETY MEASURES IN PLACE
--- NOTE | 2024-09-15 16:22 | NUR ---
patient a/o x3; on a 5l of 02; denied any pain; denied any n/d/v at this time; family at bedside; no s.s of distress; iv site clean and intact saline locked at this tieme; medication reviwed; no complaints; curtis light within reach, verbalized understanding on how to use, personal items within reach, bed in lowest postion;safety measures in place
--- NOTE | 2024-09-15 19:40 | NUR ---
PT RESTING IN BED WITH EYES CLOSED. ALERT AND ORIENTED X3. COARSE LUNG SOUNDS NOTED. TELE MONITOR ON PLACE RUNNING SR-62 AT THIS TIME. 20 G IV RAC FLUSHES WELL. 20 L WRIST- SALINE LOCK FLUSHES WELL. NO SIGNS OF ABNORMALLITIES. RESP ARE EVEN AND UNLABORED. O2 VIA VENTI-MASK AT 5L. PRODUCTIVE COUGHT- WHITE AND THICK. REDNESS NOTED ON SACRAL OPEN AREA AN AQUACEL DRESSING PLACED. CALL LIGHT IN REACH AND SAFETY PRECAUTIONS IN PLACE. DENIES ANY MORE NEEDS
--- NOTE | 2024-09-15 19:51 | NUR ---
PT RESQUESTED PAIN MEDICATION 8/10 ON PAIN SCALE MEDICATED WITH MORPHINE 2MG VIA IV. IVF NS INFUSING AT 100 CC/ML AT THIS TIME. CALL LIGHT IN REACH AND SAFETY PRECAUTION IN PLACE.
--- NOTE | 2024-09-15 21:30 | NUR ---
PT IN HIGH BROWN'S POSITION FED WITH 8 OZ OF JEVETY. FLUSHED WITH 60 CC AFTER THE FEEDING AND 60 CC BEFORE THE FEEDING. NO RESIDUAL RECEIVED. PLACEMENNT WAS CHECKED WITH A STHETOSCPE. SCHEDULED MEDICATIONS WERE ALSO GIVEN AT THIS TIME. PT TOLERATED THE FEEDING WELL. CALL LIGHT IN REACH AND SAFETY PRECAUTIONS IN PLACE.
[2024-09-16] VITALS (11 sets, daily range): BP systolic 93–108; BP diastolic 45–57
--- NOTE | 2024-09-16 00:20 | NUR ---
PT RESTING IN BED. O2 VENTI MASK AT 5L IN PLACE. IV ABT'S ZOZYM INFUSING AT 200 CC AT THIS TIME. DENIES ANY ADDITIONAL NEEDS. CALL LIGHT IN RECAH AND SAFETY PRECAUTIONS IN PLACE.
--- NOTE | 2024-09-16 04:03 | NUR ---
PT RESTING IN BED. NO SIGNS OF DISTRESS.O2 VIA VENTIMASK IN PLACE. RESPS ARE EVEN. CALL LIGHT IN REACH
[2024-09-16 05:17] LABS: IMMATURE GRANULOCYTES 1.3 % (0.0-5.0); LYMPH% 4.7 % (15-41); MEAN CELL VOLUME 90.1 fL CALC (80.0-100.0); NEUT# 10.29 thou/uL (1.82-7.42); RED BLOOD COUNT 3.74 mill/uL (4.70-6.10); RED CELL DISTRI WIDTH 14.2 % (11.5-15.5)
[2024-09-16 05:19] LABS: HEMATOCRIT 33.7 % (39.0-50.0); HEMOGLOBIN 10.1 g/dl (14.0-18.0)
[2024-09-16 05:42] LABS: BILIRUBIN, TOTAL 0.3 mg/dL (0.2-1.3); CREATININE 1.3 mg/dL (0.7-1.3); MAGNESIUM 2.6 mg/dL (1.6-2.3); POTASSIUM 4.3 mmol/l (3.5-5.1)
--- NOTE | 2024-09-16 05:45 | NUR ---
resp therapy with pt at this time
[2024-09-16 05:51] LABS: ALBUMIN 3.4 g/dL (3.2-5.0); TOTAL PROTEIN 6.3 g/dL (6.3-8.2)
--- NOTE | 2024-09-16 07:26 | NUR ---
PT IS AOX3, RESPIRATIONS ARE LABORED ON 6L, LUNGS CRACKLES THROUGHOUT, BOWEL SOUNDS ACTIVE PEDAL PULSES PALPABLE TO TOUCH. PT REPORTS PAIN IN LEFT LUNG AT A 8 ON A 0-10 PAIN SCALE. PT ALSO REPORTS HIS "BUTT HURTS" REPOSITIONED PT AND DISCUSSED GETTING INTO A CHAIR TODAY.
--- NOTE | 2024-09-16 08:18 | NUR ---
PEG TUBE DRESSING CHANGE, SMALL AMOUNT OF BLACK CRUSTATIONS NOTED TO SITE, AREA CLEANED, CRUSTRATIONS WASHED AWAY, DRESSING REAPPLIED. PT TOLERATED WITH NO COMPLANTS. JEVITY GIVEN, TUBE FLUSHED WITH 60ML BEFORE AND AGAIN AFTER FEEDING.
--- NOTE | 2024-09-16 10:48 | NUR ---
SACRAL AREA CARE PROVIDED, REMOVED AQUACEL DRESSING, SITE WITH 0.8CM OPEN AREA, SURROUNDING SKIN IS FLAKY, SITE CLEANED WITH SOAP AND WATER, PAT DRY, COVERED WITH AQUACEL DRESSING. PT TOLERATED WITH NO COMPLAINTS.
--- NOTE | 2024-09-16 12:09 | NUR ---
JEVIETY FEED PROVIDED WITH 60ML FLUCH BEFORE AND 60ML FLUSH AFTER FEEDING. PT TOLERATED WITH NO COMPLAINTS. ALSO ASSISTED PT IN TURNING, REMINDED PT ABOUT FREQUENT TURNS TO KEEP PRESSURE OFF BUTTOCK.SACRAL AREA.
[2024-09-16] MEDS ORDERED: IPRATROPIUM-Albuterol 0.5MG-2.5MG/3 ML NEB SCH (13:00)
--- NOTE | 2024-09-16 16:03 | NUR ---
JEVITY GIVEN ALONG WITH 60ML FLUSH BEFORE AND AFTER JEVITY GIVEN.
--- NOTE | 2024-09-16 19:48 | NUR ---
PT RESQUESTED PAIN MEDICATION MEDICATED WITH MORPHINE 2 MG 9/10 ON PAIN SCALE
--- NOTE | 2024-09-16 20:25 | NUR ---
PT RESTING ON BED IN SEMI BROWN'S POSITION WATCHING TV. ALERT AND ORIENTED X3. PAIN 9/10 ON PAIN SCALE ON HIS LEFT CHEST THAT RADIATES TO HIS BACK. WHEEZES ON LUNGS. TODAY COUGHT IS LESS PRODUCTIVE THAN YESTERDAY. O2 VIA VNTIMASK AT 6L. PEG TUBE NOTED ON ABDOMEN. BOWEL SOUNDS ARE ACTIVE IN ALL FOUR QUADRANTS. 20 G RAC PATENT AND INFUSING IVF NS AT 100 CC/HR. 20 G FOREARM- SALINE KIMBERLY FLUSHES WELL AND APPEARS HEALTHY AND CELAN. TELE ON PLACE RUNNING [employer]. CALL LIGHT IN REACH AND SAFETY PRECAUTIONS IN PLACE.
[2024-09-16] MEDS ORDERED: OSELTAMIVIR PHOSPHATE 30 MG/CAP PO SCH (21:00)
[2024-09-16] MEDS ORDERED: GUAIFENESIN 600 MG/TAB PO SCH (21:00)
--- NOTE | 2024-09-16 21:30 | NUR ---
PT IN HIGH BROWN'S POSITON FED AT THI TIME WITH 8 OZ OF JEVETY FLUSHED WITH 60 CC AFTER AND 60 CC BEFORE THE FEEDING. PLACEMENT WAS CHECKED WITH AN STHETOSCOPE. NO RESIDUAL WAS OBTAINED AT THIS TIME. MEDICATIONS WERE ALSO GIVEN AT THIS TIME VIA THE PEEG TUBE. PT TOLERATED THE FEEDING WELL WITH NO COMPLAINTS.
--- NOTE | 2024-09-16 22:29 | NUR ---
MILK OF MAG OFFERED TO PT- PT HAS NOT HAD ANY BOWEL MOVEMENT SINCE 09/13/24-PT REFUSED.
--- NOTE | 2024-09-16 23:16 | NUR ---
PT HAD ANOTHER EPISODE OF VTACH SHOWING ON TELE MONITOR. PT IS LAYING IN BED SEMI FOWLERS, VENTI MASK IN PLACE. DENIES ANY ACUTE PAIN OR PRESURE. VSS. PRESENTS WITH NO ACUTE SYMPTOMES AT THIS TIME. WAS INFORMED, VERBAL ORDER RECEIVED THAT NO EKG OR INTERVENTIONS NEEDED UNLESS RHYTHYM IS LONGER THEN 10 SECONDS OR PT BECOMES SYMPTOMATIC. NURSING WELDER TECH WAS INFORMED OF EVENT WELL.
[2024-09-17] VITALS (13 sets, daily range): BP systolic 103–126; BP diastolic 48–61
--- NOTE | 2024-09-17 00:35 | NUR ---
PT RESTING ON BED. RESPS ARE EVEN AN UNLABORE. IV ABT INFUSING VIA RIGHT A/C. CALL LIGHT IN REACH AND SAFETY PRECAUTIONS IN PLACE.
[2024-09-17] MEDS ORDERED: LEVALBUTEROL HCL 1.25 MG/3 ML VIAL NEB SCH (01:00)
[2024-09-17] MEDS ORDERED: IPRATROPIUM BROMIDE 0.5 MG/2.5 ML SOL IN SCH (01:00)
--- NOTE | 2024-09-17 03:59 | NUR ---
PT RESTING ON BED WITH EYES OPEN. VENTI MASK ON PLACE AT 6L. NO SIGNS OF DISTRESS AT THIS TIME. CALL LIGHT IN PLACE AND SAFETY PRECAUTIONS IN PLACE.
[2024-09-17 05:24] LABS: HEMOGLOBIN 9.2 g/dl (14.0-18.0); IMMATURE GRANULOCYTES 0.4 % (0.0-5.0); LYMPH% 3.7 % (15-41); MEAN CELL VOLUME 90.1 fL CALC (80.0-100.0); MEAN CORPUSCULAR HGB 27.6 pG CALC (26.0-32.0); MEAN CORPUSCULAR HGB CONC 30.7 g/dL CAL (32.0-36.0); MONO% 2.6 % (2-13); NEUT# 8.92 thou/uL (1.82-7.42); NEUT% 93.3 % (42-76); RED BLOOD COUNT 3.33 mill/uL (4.70-6.10); RED CELL DISTRI WIDTH 14.3 % (11.5-15.5)
[2024-09-17 05:36] LABS: ALBUMIN 3.1 g/dL (3.2-5.0); BILIRUBIN, TOTAL 0.4 mg/dL (0.2-1.3); CREATININE 0.9 mg/dL (0.7-1.3); MAGNESIUM 2.4 mg/dL (1.6-2.3); POTASSIUM 3.9 mmol/l (3.5-5.1); TOTAL PROTEIN 5.9 g/dL (6.3-8.2)
[2024-09-17 09:46] LABS: HEMATOCRIT 30.6 % (39.0-50.0); HEMOGLOBIN 9.3 g/dl (14.0-18.0)
[2024-09-17] MEDS ORDERED: METOPROLOL TARTRATE 25 MG/TAB PO SCH (10:00)
[2024-09-17] MEDS ORDERED: PIPERACILLIN Sodium-Tazobactam 4.5 GM in SODIUM CHLORIDE 0.9% 100 ML IV SCH (12:00)
--- NOTE | 2024-09-17 12:30 | NUR ---
PATIENT SITTING UP IN BED FOR FEED. PATIENT C/O L LUNG/SHOULDER PAIN, WILL MEDICATE ACCORDING TO EMAR. NO OTHER CONCERNS AT THIS TIME. WILL CONTINUE WITH PLAN OF CARE.
--- NOTE | 2024-09-17 20:00 | NUR ---
Pt is resting in bed with no complaint of pain or discomfort at this time. Assesment complete. Pt remains NPO. Peg tube in place for bolus feeds and medications. Pt remains on isolation for flu B. Peg tube in place and patent. Pt able to make needs known. Bed remains on low position, with call light within reach.
[2024-09-18] VITALS (8 sets, daily range): BP systolic 115–128; BP diastolic 52–62
--- NOTE | 2024-09-18 | NUR ---
Pt is resting in bed watching televison. Pt states he is having shoulder pain. PRN morphine administered for pain scale of 8. Pt remains NPO status. Peg tube remains in place and patent. Bed remains in low position, with call light within reach.
--- NOTE | 2024-09-18 03:51 | NUR ---
Pt is resting in bed with his eyes closed. No complaint of pain or discomfort. No s/s of SOB. All safety measures remain in place. Bed in low position. Call light within reach.
[2024-09-18 05:30] LABS: BASO% 0.1 % (0-3); HEMATOCRIT 31.2 % (39.0-50.0); HEMOGLOBIN 9.7 g/dl (14.0-18.0); IMMATURE GRANULOCYTES 0.4 % (0.0-5.0); LYMPH% 4.1 % (15-41); MEAN CELL VOLUME 87.9 fL CALC (80.0-100.0); MEAN CORPUSCULAR HGB 27.3 pG CALC (26.0-32.0); MEAN CORPUSCULAR HGB CONC 31.1 g/dL CAL (32.0-36.0); NEUT# 8.39 thou/uL (1.82-7.42); NEUT% 92.4 % (42-76); RED BLOOD COUNT 3.55 mill/uL (4.70-6.10)
[2024-09-18 05:42] LABS: BILIRUBIN, TOTAL 0.4 mg/dL (0.2-1.3); CREATININE 0.8 mg/dL (0.7-1.3); MAGNESIUM 2.4 mg/dL (1.6-2.3); POTASSIUM 4.1 mmol/l (3.5-5.1); TOTAL PROTEIN 5.7 g/dL (6.3-8.2)
--- NOTE | 2024-09-18 08:00 | NUR ---
PATIENT LYING IN BED RESTING. ASSESSMENT COMPLETED. LUNG WHEEZES/DIMINISHED TO ASCULTATION. BREATHING EVEN AND UNLABORED ON VENTI MASK. PATIENT DECLINED REPOSITIONING, EDUCATED ON REPOSITIONING. REFUSED DRESSING CHANGE AT THIS TIME. SAFETY MEASURES IN PLACE INLCUDING BED IN LOW POSITION AND CALL LIGHT RESTING NEXT TO R HAND. NO APPARENT DISTRESS NOTED. WILL CONTINUE WITH PLAN OF CARE.
[2024-09-18] MEDS ORDERED: KETOROLAC TROMETHAMINE 15 MG/ML SDV IV SCH (10:30)
[2024-09-18] MEDS ORDERED: HYDROcodone/Acetaminophen 1 COMBO TAB PO PRN (11:00)
--- NOTE | 2024-09-18 12:00 | NUR ---
PATIENT LYING IN BED. REFUSED REPOSITIONING. C/O L LUNG PAIN OF AN 8, MEDICATED ACCORDING TO EMAR. NO ADDITIONAL CONCNERNS AT THIS TIME. WILL CONTINUE TO MONITOR.
--- NOTE | 2024-09-18 16:00 | NUR ---
PATIENT LYING IN BED. FEED ADMINISTERED WITHOUT INCIDENT. DENIES ADDITIONAL CONCERNS AT THIS TIME. WILL CONTINUE TO MONITITOR.
--- NOTE | 2024-09-18 19:27 | NUR ---
PATIENT OBSERVED SITTING UP IN BED. ALERT AND ABLE TO MAKE NEEDS KNOWN. ASSESSMENT COMPLETE. NO DISTRESS NOTED. AUDIBLE WHEEZING OBSERVED. PATIENT DENIES DIFFICULTY BREATHING. VENTI MASK ON AT 3.5L. PATIENT TOLERATING WELL BUT DOES TEND TO TAKE OFF. NEEDS REDIRECTING. PATIENT DOES RECEIVE SCHEDULED NEB TREATMENTS BY RT. REMAINS ON ISOLATION FOR FLU. REMAINS RECEIVING TAMIFLU PER ORDERS. NO PAIN VOICED AT THIS TIME. PATIENT REMAINS USING URINAL. DENIES NEEDING ANYTHING AT THIS TIME. PEG TUBE REMAINS IN PLACE. PATENT WITH 0CC RESIDUAL. BED REMAINS IN LOW POSITION. CALL ADKINS AND BELONGINGS IN REACH.
[2024-09-18] MEDS ORDERED: OSELTAMIVIR PHOSPHATE 75 MG/TAB CAP PO SCH (21:00)
[2024-09-18] MEDS ORDERED: ACETYLCYSTEINE 20% 200 MG/ML SDV IN SCH (21:00)
--- NOTE | 2024-09-19 00:01 | NUR ---
PRN PAIN PILL GIVEN PER PATIENT REQUEST FOR PAIN LEVEL OF 8 TO LEFT SHOULDER. PATIENT TOLERATED WELL. REMAINS RESTING WITH HOB ELEVATED. VENTI MASK REMAINS IN PLACE. PATIENT DENIES NEEDING ANYTHING ELSE AT THIS TIME.
--- NOTE | 2024-09-19 00:01 | NUR ---
PATIENT ALSO REFUSED MILK OF MAG FOR CONSTIPATION.
[2024-09-19 04:00] VITALS: BP 119/68
--- NOTE | 2024-09-19 04:20 | NUR ---
PATIENT REMAINS RESTING IN BED. NO COMPLAINTS VOICED AT THIS TIME. DENIES NEEDING ANYTHING. BED REMAINS IN LOW POSITION. CALL ADKINS AND BELONGINGS IN REACH.
[2024-09-19 05:25] LABS: BILIRUBIN, TOTAL 0.4 mg/dL (0.2-1.3); CREATININE 0.9 mg/dL (0.7-1.3); MAGNESIUM 2.5 mg/dL (1.6-2.3); POTASSIUM 3.9 mmol/l (3.5-5.1); TOTAL PROTEIN 5.6 g/dL (6.3-8.2)
[2024-09-19 05:27] LABS: HEMATOCRIT 31.9 % (39.0-50.0); HEMOGLOBIN 9.8 g/dl (14.0-18.0); IMMATURE GRANULOCYTES 0.7 % (0.0-5.0); LYMPH% 2.6 % (15-41); MEAN CELL VOLUME 89.9 fL CALC (80.0-100.0); MEAN CORPUSCULAR HGB 27.6 pG CALC (26.0-32.0); MEAN CORPUSCULAR HGB CONC 30.7 g/dL CAL (32.0-36.0); NEUT# 8.2 thou/uL (1.82-7.42); NEUT% 93.7 % (42-76); RED BLOOD COUNT 3.55 mill/uL (4.70-6.10); RED CELL DISTRI WIDTH 13.7 % (11.5-15.5)
[2024-09-19 07:04] VITALS: BP 123/60
--- NOTE | 2024-09-19 08:45 | NUR ---
PT IS AOX4 RESPIRATIONS ARE EVEN AND LABORED ON VENTIMASK, RONCHI NOTED THROUGHOUT, BOWEL SOUNDS ACTIVE ON ALL 4 QUADRANTS WITH PEG TUBE PRESENT. PEDAL PULSES PALPABLE TO TOUGH.
[2024-09-19] MEDS ORDERED: HYDROmorphone HCL 2 MG/AMP IV SCH (10:00)
[2024-09-19] MEDS ORDERED: FUROSEMIDE 40 MG/4 ML SDV IV SCH (10:00)
[2024-09-19 10:57] VITALS: BP 122/60
[2024-09-19] MEDS ORDERED: PREDNISONE50 MG PO (11:54)
[2024-09-19] MEDS ORDERED: CIPROFLOXACN500 MG PO (11:54)
[2024-09-19] MEDS ORDERED: LORTAB 1010 MG PO (11:55)
[2024-09-19] MEDS ORDERED: FUROSEMIDE20 MG PO (11:58)
--- NOTE | 2024-09-19 13:06 | NUR ---
PT LEFT THE UNIT VIA WHEELCHAIR TRANSPORT WITH BELONGINGS IN HAND ON O2.
--- NOTE | 2024-09-19 13:13 | NUR ---
REVIEWED DISCHARGE INSTRUCTIONS WITH PT, REMOVED IV, REMOVED TELE.
== END 2024-09-19 13:08 | disposition home or self-care (01) | DRG 177 ==
LOC: ED 11:23 → ED-I 14:40 → ED 15:07 → MS2 15:08
PROVIDERS: Family Medicine; Nurse Practitioner Family; Student in an Organized Health Care Education/Training Program; ADMIT Internal Medicine; ATTEND Internal Medicine
DX: J10.08 Influenza due to other identified influenza virus with other specified pneumonia (principal); J96.21 Acute and chronic respiratory failure with hypoxia; J15.1 Pneumonia due to Pseudomonas; I48.20 Chronic atrial fibrillation, unspecified; I47.10 Supraventricular tachycardia, unspecified; J44.1 Chronic obstructive pulmonary disease with (acute) exacerbation; J44.0 Chronic obstructive pulmonary disease with (acute) lower respiratory infection; I11.0 Hypertensive heart disease with heart failure; I50.9 Heart failure, unspecified; I25.10 Atherosclerotic heart disease of native coronary artery without angina pectoris; E78.5 Hyperlipidemia, unspecified; L98.499 Non-pressure chronic ulcer of skin of other sites with unspecified severity; F17.200 Nicotine dependence, unspecified, uncomplicated; Z93.1 Gastrostomy status; Z95.1 Presence of aortocoronary bypass graft; Z85.819 Personal history of malignant neoplasm of unspecified site of lip, oral cavity, and pharynx; Z99.81 Dependence on supplemental oxygen; Z79.01 Long term (current) use of anticoagulants
CPT/HCPCS: J0456

== ENCOUNTER 2024-10-24 16:19 | Inpatient (IN) | payer MEDICARE ==
[2024-10-24] VITALS (12 sets, daily range): BP systolic 112–129; BP diastolic 57–73
[~2024-10-24] VITALS: Ht 185.4 cm; Wt 66.0 kg
[~2024-10-24 16:19] MED LIST changes: +FUROSEMIDE20 MG PO; +LORTAB 1010 MG PO; +PREDNISONE50 MG PO
[2024-10-24] MEDS ORDERED: IPRATROPIUM-Albuterol 0.5MG-2.5MG/3 ML NEB ONE ×2 (16:25)
[2024-10-24] MEDS ORDERED: methylPREDNISolone SODIUM SUCC 125 MG/2 ML SDV IV ONE (16:25)
[2024-10-24 16:55] LABS: BASO% 0.2 % (0-3); EOS% 0.9 % (0-8); HEMATOCRIT 30.8 % (39.0-50.0); HEMOGLOBIN 9.2 g/dl (14.0-18.0); IMMATURE GRANULOCYTES 0.5 % (0.0-5.0); LYMPH% 10.5 % (15-41); MEAN CORPUSCULAR HGB 25.7 pG CALC (26.0-32.0); MEAN CORPUSCULAR HGB CONC 29.9 g/dL CAL (32.0-36.0); MONO% 10.1 % (2-13); NEUT# 11.37 thou/uL (1.82-7.42); NEUT% 77.8 % (42-76); RED BLOOD COUNT 3.58 mill/uL (4.70-6.10); RED CELL DISTRI WIDTH 15.3 % (11.5-15.5)
[2024-10-24 17:09] LABS: ALBUMIN 3.7 g/dL (3.2-5.0); ANION GAP 8 (6-22 (CALC)); BUN 29 mg/dL (8-23); BUN/CREATININE RATIO 44 (12-20 (CALC)); CARBON DIOXIDE 33 mmol/l (22-30); CHLORIDE 100 mmol/l (95-108); CREATININE 0.7 mg/dL (0.7-1.3); ESTIMATED GFR 97 ML/MIN (>=90 (CALC)); POTASSIUM 4.5 mmol/l (3.5-5.1); SGOT/AST 48 u/l (19-48); SODIUM 136 mmol/l (137-146)
[2024-10-24 17:12] LABS: TOTAL PROTEIN 7.1 g/dL (6.3-8.2)
[2024-10-24 17:13] LABS: ALKALINE PHOSPHATASE 124 u/l (38-126)
[2024-10-24 17:56] LABS: URINE BILIRUBIN - DIPSTICK Negative (NEGATIVE); URINE BLOOD DIPSTICK Trace-intact (NEGATIVE); URINE GLUCOSE - DIPSTICK Negative (NEGATIVE); URINE KETONE Negative (NEGATIVE); URINE LEUK ESTERASE Negative (NEGATIVE); URINE NITRITE - DIPSTICK Negative (Negative); URINE PH 7.5 (4.5-8.0); URINE PROTEIN - DIPSTICK 30 mg/dL (NEG-TRACE); URINE SPECIFIC GRAVITY 1.015
[2024-10-24 18:03] LABS: URINE COLOR Yellow
[2024-10-24 18:06] LABS: URINE AMORPH SEDIMENT FEW hpf (NONE-FER); URINE RBC 0-2 RBC/hpf (0-5); URINE SQUAMOUS EPITHELIAL CELL FEW EPI/hpf (0-FEW); URINE WBC 0-2 WBC/hpf (0-5)
[2024-10-24] MEDS ORDERED: IPRATROPIUM-Albuterol 0.5MG-2.5MG/3 ML IN PRN (18:55)
[2024-10-24] MEDS ORDERED: ALBUTEROL SULFATE 8 GM INH IN PRN (18:55)
[2024-10-24] MEDS ORDERED: HYDROcodone/Acetaminophen 1 COMBO TAB PO PRN (18:55)
[2024-10-24] MEDS ORDERED: methylPREDNISolone Sod Succ 40 MG/ML SDV IV SCH (19:00)
[2024-10-24] MEDS ORDERED: IPRATROPIUM-Albuterol 0.5MG-2.5MG/3 ML NEB SCH (19:00)
[2024-10-24] MEDS ORDERED: AZITHROMYCIN 500 MG in SODIUM CHLORIDE 0.9% 500 ML IV ONE (19:00)
[2024-10-24] MEDS ORDERED: cefTRIAXone SODIUM 2 GM in SODIUM CHLORIDE 0.9% 100 ML IV ONE (19:00)
[2024-10-24] MEDS ORDERED: APIXABAN BASE 5 MG TAB PO SCH (21:00)
[2024-10-25 04:15] VITALS: BP 111/68
[2024-10-25 05:35] LABS: ALBUMIN 3.2 g/dL (3.2-5.0); BASO% 0.2 % (0-3); BILIRUBIN, TOTAL 0.6 mg/dL (0.2-1.3); CREATININE 0.7 mg/dL (0.7-1.3); HEMATOCRIT 27.6 % (39.0-50.0); HEMOGLOBIN 8.5 g/dl (14.0-18.0); IMMATURE GRANULOCYTES 0.3 % (0.0-5.0); LYMPH% 5.2 % (15-41); MEAN CELL VOLUME 85.7 fL CALC (80.0-100.0); MEAN CORPUSCULAR HGB 26.4 pG CALC (26.0-32.0); MEAN CORPUSCULAR HGB CONC 30.8 g/dL CAL (32.0-36.0); MONO% 3.1 % (2-13); NEUT# 9.22 thou/uL (1.82-7.42); NEUT% 91.2 % (42-76); POTASSIUM 4.4 mmol/l (3.5-5.1); RED BLOOD COUNT 3.22 mill/uL (4.70-6.10); RED CELL DISTRI WIDTH 15.2 % (11.5-15.5); TOTAL PROTEIN 6.2 g/dL (6.3-8.2)
[2024-10-25 07:04] VITALS: BP 119/58
[2024-10-25 10:27] VITALS: BP 132/64
[2024-10-25] MEDS ORDERED: LASIX20 MG PO (12:42)
[2024-10-25] MEDS ORDERED: FERROUS SULFAT FT (12:52)
[2024-10-25] MEDS ORDERED: ALPRAZOLAM0.5 M2 PO (12:54)
[2024-10-25] MEDS ORDERED: TRELEGY ELLIPTA1 AE1 PO (12:58)
[2024-10-25] MEDS ORDERED: NICOTINE TRANSDERMAL 21 MG/PATCH TD SCH (14:00)
[2024-10-25 14:49] VITALS: BP 127/68
[2024-10-25] MEDS ORDERED: cefTRIAXone SODIUM 2 GM in SODIUM CHLORIDE 0.9% 100 ML IV SCH (19:30)
[2024-10-25 19:33] VITALS: BP 118/61
[2024-10-25] MEDS ORDERED: AZITHROMYCIN 500 MG in SODIUM CHLORIDE 0.9% 250 ML IV SCH (20:00)
[2024-10-25] MEDS ORDERED: SODIUM CHLORIDE 0.9% 100 ML IV ONE (20:31)
[2024-10-25 23:17] VITALS: BP 95/51
[2024-10-26 03:56] VITALS: BP 104/53
[2024-10-26 05:38] LABS: HEMATOCRIT 25.3 % (39.0-50.0); HEMOGLOBIN 7.7 g/dl (14.0-18.0); MEAN CELL VOLUME 84.9 fL CALC (80.0-100.0); MEAN CORPUSCULAR HGB 25.8 pG CALC (26.0-32.0); MEAN CORPUSCULAR HGB CONC 30.4 g/dL CAL (32.0-36.0); RED BLOOD COUNT 2.98 mill/uL (4.70-6.10); RED CELL DISTRI WIDTH 14.7 % (11.5-15.5)
[2024-10-26 06:01] LABS: CREATININE 0.7 mg/dL (0.7-1.3); POTASSIUM 4.7 mmol/l (3.5-5.1); TOTAL PROTEIN 6.1 g/dL (6.3-8.2)
[2024-10-26 06:07] LABS: BILIRUBIN, TOTAL 0.3 mg/dL (0.2-1.3)
[2024-10-26 07:15] VITALS: BP 100/46
[2024-10-26 10:41] VITALS: BP 113/57
[2024-10-26] MEDS ORDERED: ALBUTEROL SULFATE 8 GM INH IN PRN (13:55)
[2024-10-26 14:50] VITALS: BP 107/53
[2024-10-26 19:10] VITALS: BP 108/56
[2024-10-26 23:44] VITALS: BP 118/71
[2024-10-27] VITALS (10 sets, daily range): BP systolic 101–134; BP diastolic 42–63
[2024-10-27 05:30] LABS: ALBUMIN 2.8 g/dL (3.2-5.0); BILIRUBIN, TOTAL 0.2 mg/dL (0.2-1.3); CREATININE 0.7 mg/dL (0.7-1.3); TOTAL PROTEIN 5.6 g/dL (6.3-8.2)
[2024-10-27 05:31] LABS: HEMATOCRIT 24.6 % (39.0-50.0); HEMOGLOBIN 7.3 g/dl (14.0-18.0); MEAN CELL VOLUME 87.2 fL CALC (80.0-100.0); MEAN CORPUSCULAR HGB 25.9 pG CALC (26.0-32.0); MEAN CORPUSCULAR HGB CONC 29.7 g/dL CAL (32.0-36.0); RED BLOOD COUNT 2.82 mill/uL (4.70-6.10); RED CELL DISTRI WIDTH 14.9 % (11.5-15.5)
[2024-10-27] MEDS ORDERED: ALPRAZolam 0.5 MG/TAB PO PRN (09:05)
[2024-10-27] MEDS ORDERED: SODIUM CHLORIDE 0.9% 500 ML IV SCH (09:30)
[2024-10-27] MEDS ORDERED: methylPREDNISolone Sod Succ 40 MG/ML SDV IV SCH (14:00)
[2024-10-28 00:20] VITALS: BP 119/55
[2024-10-28 04:35] VITALS: BP 112/47
[2024-10-28 05:44] LABS: BASO% 0.1 % (0-3); HEMATOCRIT 26.3 % (39.0-50.0); HEMOGLOBIN 8.3 g/dl (14.0-18.0); IMMATURE GRANULOCYTES 0.5 % (0.0-5.0); LYMPH% 3.6 % (15-41); MEAN CELL VOLUME 87.7 fL CALC (80.0-100.0); MEAN CORPUSCULAR HGB 27.7 pG CALC (26.0-32.0); MEAN CORPUSCULAR HGB CONC 31.6 g/dL CAL (32.0-36.0); MONO% 2.2 % (2-13); NEUT# 9.21 thou/uL (1.82-7.42); NEUT% 93.6 % (42-76); RED CELL DISTRI WIDTH 15.1 % (11.5-15.5)
[2024-10-28 06:05] LABS: ALBUMIN 2.8 g/dL (3.2-5.0); CREATININE 0.7 mg/dL (0.7-1.3); MAGNESIUM 2.4 mg/dL (1.6-2.3); POTASSIUM 4.8 mmol/l (3.5-5.1); TOTAL PROTEIN 5.7 g/dL (6.3-8.2)
[2024-10-28 06:11] LABS: BILIRUBIN, TOTAL 0.4 mg/dL (0.2-1.3)
[2024-10-28 06:59] VITALS: BP 112/46
[2024-10-28 10:36] VITALS: BP 111/44
[2024-10-28] MEDS ORDERED: MORPHINE SULFATE 4 MG/ML VIAL IV PRN (13:25)
[2024-10-28 14:41] VITALS: BP 121/56
[2024-10-28 19:08] VITALS: BP 127/56
[2024-10-29] VITALS (7 sets, daily range): BP systolic 116–138; BP diastolic 43–58
[2024-10-29 06:03] LABS: HEMATOCRIT 26.8 % (39.0-50.0); HEMOGLOBIN 8.3 g/dl (14.0-18.0); IMMATURE GRANULOCYTES 0.3 % (0.0-5.0); LYMPH% 3.5 % (15-41); MEAN CELL VOLUME 88.4 fL CALC (80.0-100.0); MEAN CORPUSCULAR HGB 27.4 pG CALC (26.0-32.0); MONO% 2.1 % (2-13); NEUT# 9.43 thou/uL (1.82-7.42); NEUT% 94.1 % (42-76); RED BLOOD COUNT 3.03 mill/uL (4.70-6.10); RED CELL DISTRI WIDTH 15.4 % (11.5-15.5)
[2024-10-29 06:20] LABS: ALBUMIN 2.9 g/dL (3.2-5.0); CREATININE 0.6 mg/dL (0.7-1.3); MAGNESIUM 2.5 mg/dL (1.6-2.3); POTASSIUM 4.5 mmol/l (3.5-5.1); TOTAL PROTEIN 5.8 g/dL (6.3-8.2)
[2024-10-29 06:27] LABS: BILIRUBIN, TOTAL 0.6 mg/dL (0.2-1.3)
[2024-10-30 06:14] LABS: HEMATOCRIT 26.9 % (39.0-50.0); HEMOGLOBIN 8.2 g/dl (14.0-18.0); IMMATURE GRANULOCYTES 0.4 % (0.0-5.0); LYMPH% 2.9 % (15-41); MEAN CELL VOLUME 89.1 fL CALC (80.0-100.0); MEAN CORPUSCULAR HGB 27.2 pG CALC (26.0-32.0); MEAN CORPUSCULAR HGB CONC 30.5 g/dL CAL (32.0-36.0); MONO% 2.7 % (2-13); NEUT# 9.66 thou/uL (1.82-7.42); RED BLOOD COUNT 3.02 mill/uL (4.70-6.10); RED CELL DISTRI WIDTH 15.9 % (11.5-15.5)
[2024-10-30 06:24] LABS: ALBUMIN 2.8 g/dL (3.2-5.0); BILIRUBIN, TOTAL 0.5 mg/dL (0.2-1.3); CREATININE 0.6 mg/dL (0.7-1.3); MAGNESIUM 2.5 mg/dL (1.6-2.3); POTASSIUM 4.4 mmol/l (3.5-5.1); TOTAL PROTEIN 5.5 g/dL (6.3-8.2)
[2024-10-30 07:00] VITALS: BP 130/59
[2024-10-30 10:33] VITALS: BP 103/54
[2024-10-30 14:56] VITALS: BP 127/59
[2024-10-30 18:30] VITALS: BP 124/56
[2024-10-31] VITALS (7 sets, daily range): BP systolic 114–135; BP diastolic 44–53
[2024-10-31 05:33] LABS: BASO% 0.1 % (0-3); HEMATOCRIT 27.7 % (39.0-50.0); HEMOGLOBIN 8.5 g/dl (14.0-18.0); IMMATURE GRANULOCYTES 0.8 % (0.0-5.0); LYMPH% 2.6 % (15-41); MEAN CELL VOLUME 87.9 fL CALC (80.0-100.0); MEAN CORPUSCULAR HGB CONC 30.7 g/dL CAL (32.0-36.0); MONO% 2.5 % (2-13); NEUT# 11.87 thou/uL (1.82-7.42); RED BLOOD COUNT 3.15 mill/uL (4.70-6.10); RED CELL DISTRI WIDTH 15.9 % (11.5-15.5)
[2024-10-31 06:08] LABS: ALBUMIN 2.9 g/dL (3.2-5.0); BILIRUBIN, TOTAL 0.6 mg/dL (0.2-1.3); CREATININE 0.6 mg/dL (0.7-1.3); MAGNESIUM 2.3 mg/dL (1.6-2.3); POTASSIUM 4.4 mmol/l (3.5-5.1); TOTAL PROTEIN 5.5 g/dL (6.3-8.2)
[2024-11-01 04:56] VITALS: BP 105/73
[2024-11-01 06:19] LABS: HEMOGLOBIN 8.3 g/dl (14.0-18.0); IMMATURE GRANULOCYTES 0.9 % (0.0-5.0); LYMPH% 2.5 % (15-41); MEAN CELL VOLUME 87.1 fL CALC (80.0-100.0); MEAN CORPUSCULAR HGB 26.8 pG CALC (26.0-32.0); MEAN CORPUSCULAR HGB CONC 30.7 g/dL CAL (32.0-36.0); MONO% 2.1 % (2-13); NEUT# 11.18 thou/uL (1.82-7.42); NEUT% 94.5 % (42-76); RED BLOOD COUNT 3.1 mill/uL (4.70-6.10); RED CELL DISTRI WIDTH 15.8 % (11.5-15.5)
[2024-11-01 06:23] LABS: ALBUMIN 2.7 g/dL (3.2-5.0); BILIRUBIN, TOTAL 0.5 mg/dL (0.2-1.3); CREATININE 0.6 mg/dL (0.7-1.3); MAGNESIUM 2.3 mg/dL (1.6-2.3); POTASSIUM 4.5 mmol/l (3.5-5.1); TOTAL PROTEIN 5.3 g/dL (6.3-8.2)
[2024-11-01 07:00] VITALS: BP 109/51
[2024-11-01 10:39] VITALS: BP 104/42
[2024-11-01 16:00] VITALS: BP 119/37
[2024-11-01 18:35] VITALS: BP 131/61
[2024-11-01 23:43] VITALS: BP 124/65
[2024-11-02 04:48] VITALS: BP 116/54
[2024-11-02 05:52] LABS: BASO% 0.1 % (0-3); HEMATOCRIT 27.2 % (39.0-50.0); HEMOGLOBIN 8.1 g/dl (14.0-18.0); IMMATURE GRANULOCYTES 1.3 % (0.0-5.0); LYMPH% 3.7 % (15-41); MEAN CELL VOLUME 89.2 fL CALC (80.0-100.0); MEAN CORPUSCULAR HGB 26.6 pG CALC (26.0-32.0); MEAN CORPUSCULAR HGB CONC 29.8 g/dL CAL (32.0-36.0); MONO% 2.8 % (2-13); NEUT# 10.85 thou/uL (1.82-7.42); NEUT% 92.1 % (42-76); RED BLOOD COUNT 3.05 mill/uL (4.70-6.10); RED CELL DISTRI WIDTH 16.1 % (11.5-15.5)
[2024-11-02 06:08] LABS: ALBUMIN 2.6 g/dL (3.2-5.0); BILIRUBIN, TOTAL 0.5 mg/dL (0.2-1.3); CREATININE 0.5 mg/dL (0.7-1.3); MAGNESIUM 2.4 mg/dL (1.6-2.3); POTASSIUM 4.5 mmol/l (3.5-5.1); TOTAL PROTEIN 5.3 g/dL (6.3-8.2)
[2024-11-02 10:42] VITALS: BP 107/52
[2024-11-02 15:56] VITALS: BP 122/51
[2024-11-02 18:40] VITALS: BP 129/62
[2024-11-02 19:18] VITALS: BP 129/62
[2024-11-03 01:00] VITALS: BP 119/58
[2024-11-03 06:02] VITALS: BP 116/39
[2024-11-03 06:18] LABS: BASO% 0.1 % (0-3); HEMATOCRIT 27.3 % (39.0-50.0); HEMOGLOBIN 8.4 g/dl (14.0-18.0); IMMATURE GRANULOCYTES 1.5 % (0.0-5.0); LYMPH% 3.8 % (15-41); MEAN CELL VOLUME 88.3 fL CALC (80.0-100.0); MEAN CORPUSCULAR HGB 27.2 pG CALC (26.0-32.0); MEAN CORPUSCULAR HGB CONC 30.8 g/dL CAL (32.0-36.0); MONO% 2.5 % (2-13); NEUT# 11.28 thou/uL (1.82-7.42); NEUT% 92.1 % (42-76); RED BLOOD COUNT 3.09 mill/uL (4.70-6.10); RED CELL DISTRI WIDTH 16.2 % (11.5-15.5)
[2024-11-03 06:32] LABS: ALBUMIN 2.8 g/dL (3.2-5.0); BILIRUBIN, TOTAL 0.6 mg/dL (0.2-1.3); CREATININE 0.5 mg/dL (0.7-1.3); MAGNESIUM 2.3 mg/dL (1.6-2.3); POTASSIUM 4.4 mmol/l (3.5-5.1); TOTAL PROTEIN 5.6 g/dL (6.3-8.2)
[2024-11-03 08:14] VITALS: BP 113/51
[2024-11-03] MEDS ORDERED: LORTAB 1010 MG PO (10:08)
[2024-11-03 10:52] VITALS: BP 122/60
== END 2024-11-03 14:38 | disposition home health service (06) | DRG 177 ==
LOC: ED 16:19 → ED-I 17:40 → ED 18:42 → MS2 18:43
PROVIDERS: Family Medicine; Internal Medicine; Nurse Practitioner Family; ADMIT Internal Medicine; ATTEND Internal Medicine
PROC: 30233N1 Transfusion of Nonautologous Red Blood Cells into Peripheral Vein, Percutaneous Approach (ICD-10-PCS; principal; 2024-10-27)
DX: J15.1 Pneumonia due to Pseudomonas (principal); J96.21 Acute and chronic respiratory failure with hypoxia; I48.20 Chronic atrial fibrillation, unspecified; J44.0 Chronic obstructive pulmonary disease with (acute) lower respiratory infection; J44.1 Chronic obstructive pulmonary disease with (acute) exacerbation; R64 Cachexia; J43.9 Emphysema, unspecified; D64.9 Anemia, unspecified; I10 Essential (primary) hypertension; I25.10 Atherosclerotic heart disease of native coronary artery without angina pectoris; E78.5 Hyperlipidemia, unspecified; F17.200 Nicotine dependence, unspecified, uncomplicated; Z85.819 Personal history of malignant neoplasm of unspecified site of lip, oral cavity, and pharynx; Z86.711 Personal history of pulmonary embolism; Z90.49 Acquired absence of other specified parts of digestive tract; Z95.1 Presence of aortocoronary bypass graft; Z93.1 Gastrostomy status; Z99.81 Dependence on supplemental oxygen; Z79.01 Long term (current) use of anticoagulants; Z20.822 Contact with and (suspected) exposure to COVID-19
CPT/HCPCS: J0456; J0696; J0713; P9016